=== PATIENT | male | born 1955 | race Caucasian/White ===

== ENCOUNTER → 2021-07-16 | Outpatient (CLI) | payer BC | END | disposition home or self-care (01) | LOC: LABPAT 10:37 | PROVIDERS: ATTEND Urology | DX: Z01.812 Encounter for preprocedural laboratory examination (principal); N40.1 Benign prostatic hyperplasia with lower urinary tract symptoms ==

== ENCOUNTER 2021-07-26 06:00 | Inpatient (IN) | payer BC ==
[2021-07-16 11:29] LABS: Basophils # (A) 0.1 k/uL (0-0.2); Basophils % (A) 1 %; Eosinophils # (A) 0.1 k/uL (0-0.7); Eosinophils % (A) 2 %; HCT 47.3 % (39.0-53.0); HGB 15.7 gm/dL (13.0-17.5); Lymphocytes # (A) 1.1 k/uL (1.0-4.8); Lymphocytes % (A) 16 %; MCH 29.7 pg (25.0-35.0); MCHC 33.2 g/dL (31.0-37.0); MCV 89.5 fL (80.0-100.0); Mean Platelet Volume 8.4; Monocytes # (A) 0.4 k/uL (0-1.0); Monocytes % (A) 6 %; Neutrophils # (A) 4.8 k/uL (1.3-7.7); Neutrophils % (A) 74 %; Platelet Count 159 k/uL (150-450); RBC 5.29 m/uL (4.30-5.90); RDW 12.8 % (11.5-15.5); WBC 6.5 k/uL (3.8-10.6)
[2021-07-16 11:41] LABS: African American GFR (CKD) >90 (>60 ml/min/1.73 sqM); Anion Gap 4 mmol/L; Blood Urea Nitrogen 20 mg/dL (9-20); Calcium 10.1 mg/dL (8.4-10.2); Carbon Dioxide 29 mmol/L (22-30); Chloride 104 mmol/L (98-107); Glucose 100 mg/dL (74-99); Non-African American GFR(CKD) 85 (>60 ml/min/1.73 sqM); Potassium 4.9 mmol/L (3.5-5.1); Sodium 137 mmol/L (137-145)
[2021-07-16 11:48] LABS: Appearance,Urine Clear (Clear); Bilirubin,Urine Negative (Negative); Blood,Urine Negative (Negative); Color,Urine Yellow; Glucose,Urine (UA) Negative (Negative); Ketones,Urine Negative (Negative); Leukocyte Esterase,Urine Negative (Negative); Nitrite,Urine Negative (Negative); Protein,Urine Negative (Negative); Specific Gravity,Urine 1.017 (1.001-1.035); Urobilinogen,Urine <2.0 mg/dL (<2.0)
[2021-07-22 08:52] VITALS: BMI 26.4
--- NOTE | 2021-07-25 21:04 | P.HPIHPCON ---
History of Present Illness H&P Date: 07/25/21 This a 65 yo male with hx of BPH, he is symptomatic despite medical therapy TRUS showed 85 gram prostate. Discussed given the size of his prostate the recommended approach is either a HoLEP or Robotic simple prostatecomy. discussed the risk and benefit of each procedure in detail. He agreed to proceed with a robotic simple prostatectomy. Discussed with him the risk of surgery which includes but not limited to bleeding, infection, injury to nearby organs which includes but not limited to bowel, ureter, rectum, or blood vessels.. Discussed also with him risk from anesthesia which includes but not limited to heart attack, stroke, blood clots. Discussed with him also the risk of persistent symptoms even with simple prostatectomy. Discussed the risk of erectile dysfunction and urinary incontinence. He understood all the risk and agreed to proceed Consent for Procedure: I have explained the operation/procedure to the patient, including the risks, benefits, side effects, alternative therapies (including not receiving the proposed treatment or service), the likelihood of the patient achieving his/her goals, and potential recuperation problems for the procedure/sedation/analgesia, as well as any blood products, if indicated. I also explained to the patient the risks, benefits and side effects of the alternatives, as well as the risks related to not receiving the proposed procedure, care, treatment, or services. Past Medical History Past Medical History: Deep Vein Thrombosis (DVT), GERD/Reflux, Prostate Disorder, Pulmonary Embolus (PE), Skin Disorder Additional Past Medical History / Comment(s): psoriasis, had COVID 03/2021 History of Any Multi-Drug Resistant Organisms: None Reported Past Surgical History: Orthopedic Surgery Additional Past Surgical History / Comment(s): bl knee replacement, rt shoulder surgery after fx, EGD Past Anesthesia/Blood Transfusion Reactions: Previous Problems w/ Anesthesia, Postoperative Nausea & Vomiting (PONV) Additional Past Anesthesia/Blood Transfusion Reaction / Comment(s): diff swallowing after EGD, Smoking Status: Former smoker - Past Family History Father Family Medical History: Cancer Additional Family Medical History / Comment(s): esophageal Mother Family Medical History: Cancer Additional Family Medical History / Comment(s): breast Medications and Allergies Home Medications Medication Instructions Recorded Confirmed Type Alfuzosin HCl [Uroxatral] 10 mg PO DAILY 07/22/21 07/22/21 History Apixaban [Eliquis] 5 mg PO BID 07/22/21 07/22/21 History Multivitamins, Thera [Multivitamin 1 tab PO DAILY 07/22/21 07/22/21 History (formulary)] Omeprazole [PriLOSEC] 20 mg PO W/SUPPER 07/22/21 07/22/21 History Allergies Allergy/AdvReac Type Severity Reaction Status Date / Time acetaminophen [From Percocet] Allergy diff Verified 07/22/21 08:43 swallowing, dry mouth oxycodone [From Percocet] Allergy diff Verified 07/22/21 08:43 swallowing, dry mouth glycocyrrolate Allergy diff Uncoded 07/22/21 08:59 swallowing, dry mouth Surgical - Exam - General no distress, no pain - Eyes PERRL, normal ocular movement - ENT normal nares, normal mucosa - Respiratory normal expansion, normal respiratory effort - Abdomen Abdomen: soft, non tender Results - Labs 07/16/21 11:01 07/16/21 11:01 Assessment and Plan Assessment: -OR for robotic simple prostatecomy
[~2021-07-26 06:00] MED LIST: DEXAMETHASONE SOD PHOSPHATE 4 MG/ML 1 ML VIAL IV ONE; HEPARIN SODIUM,PORCINE/PF 5,000 UNIT/0.5 ML SYRINGE SQ PRN; ONDANSETRON 4 MG/2 ML VIAL IVP ONE
[2021-07-26] MEDS ORDERED: fentaNYL (PF) 50 MCG/ML 2 ML AMP IVP ONE ×2 (07:23→07:42)
[2021-07-26] MEDS ORDERED: MIDAZOLAM 2 MG/2 ML VIAL IVP ONE (07:23)
[2021-07-26] MEDS ORDERED: traMADol 50 MG TAB PO PRN (07:30)
[2021-07-26] MEDS ORDERED: LIDOCAINE 1% (10MG/ML) FOR IV START INTRADERMA ONE ×2 (07:39)
[2021-07-26] MEDS ORDERED: fentaNYL (PF) 50 MCG/ML 2 ML AMP ONE (07:41)
[2021-07-26] MEDS ORDERED: SODIUM CHLORIDE 0.9% (PF) 10 ML VIAL ONE (07:41)
[2021-07-26] MEDS ORDERED: ROPIVACAINE 5 MG/ML 30 ML VIAL ONE (07:41)
[2021-07-26] MEDS ORDERED: SUCCINYLCHOLINE CHLORIDE 100 MG/5 ML SYR IV ONE (07:41)
[2021-07-26] MEDS ORDERED: ePHEDrine 50 MG/ML 1 ML AMP ONE (07:41)
[2021-07-26] MEDS ORDERED: DEXAMETHASONE SOD PHOSPHATE 4 MG/ML 1 ML VIAL ONE (07:41)
[2021-07-26] MEDS ORDERED: ROCURONIUM 10 MG/ML (5 ML VIAL) IV ONE (07:41)
[2021-07-26] MEDS ORDERED: PROPOFOL 10 MG/ML 20 ML VIAL IV ONE (07:41)
[2021-07-26] MEDS ORDERED: SUGAMMADEX SODIUM 500 MG/5 ML SDV IV ONE (07:41)
[2021-07-26] MEDS ORDERED: LIDOCAINE 1% INJ 10MG/ML (20 ML MDV) ONE (07:41)
[2021-07-26] MEDS: LACTATED RINGERS 1,000 ML IV SCH (07:43)
[2021-07-26] MEDS ORDERED: SCOPOLAMINE 1.5MG/72HR PATCH TRANSDERM ONE (07:44)
--- NOTE | 2021-07-26 08:29 | P.ANPRN ---
Procedure Note - Anesthesia - Nerve Block Performed Bilateral Erector Spinae Single Time Out Performed: Yes Date of Procedure: 07/26/21 Procedure Start Time: Procedure Stop Time: Location of Patient: PreOp Indication: Requested by Surgeon Specifically requested for management of pain by DrTereza: Joshua Sweeney Sedation Type: Sedate with meaningful contact maintained Preparation: Sterile Prep Position: Prone Needle Types: Pajunk Needle Gauge: 21 Ultrasound used to visualize needle placement: Yes Ultrasound used to observe medication spread: Yes Injectate: 0.5% Ropivacaine (see comment for volume) (15 ml PF +15 ml 0.9% NS + 4mg Dexamethason) Blood Aspirated: No Pain Paresthesia on Injection Noted: No Resistance on Injection: Normal Image Stored and Saved: Yes Events: Uneventful and Well Tolerated
[2021-07-26] MEDS ORDERED: BUPIVACAINE (PF) 0.25% 30 ML VIAL SQ ONE ×2 (08:32)
--- NOTE | 2021-07-26 10:42 | P.OP ---
Date of Procedure: 07/26/21 Preoperative Diagnosis: BPH with obstruction Postoperative Diagnosis: Same Procedure(s) Performed: Robotic simple prostatectomy Implants: None Anesthesia: JUNA Surgeon: Joshua Sweeney Housing Inspectors #1: Annabelle Rodríguez Estimated Blood Loss (ml): 100 Pathology: other (Prostate adenoma) Condition: stable Disposition: PACU Indications for Procedure: This a 65 yo male with hx of BPH, he is symptomatic despite medical therapy TRUS showed 85 gram prostate. Discussed given the size of his prostate the recommended approach is either a HoLEP or Robotic simple prostatecomy. discussed the risk and benefit of each procedure in detail. He agreed to proceed with a robotic simple prostatectomy. Discussed with him the risk of surgery which includes but not limited to bleeding, infection, injury to nearby organs which includes but not limited to bowel, ureter, rectum, or blood vessels.. Discussed also with him risk from anesthesia which includes but not limited to heart attack, stroke, blood clots. Discussed with him also the risk of persistent symptoms even with simple prostatectomy. Discussed the risk of erectile dysfunction and urinary incontinence. He understood all the risk and agreed to proceed Description of Procedure: After preoperative antibiotics were started, the patient was taken to the operating room. Anesthesia was induced and the patient was placed in a supine position with adequate padding of the pressure points, shoulders, back, legs and arms. He was then prepped and draped in the standard fashion. A critical pause was performed using two patient identifiers. A 16F lopez catheter was placed to gravity drainage. A pneumoperitoneum was obtained using a Veress needle, after pneumoperitoneum was obtained a 8 mm camera port was placed. Under direct vision a 8mm robotic ports was placed lateral to each rectus slightly below the camera port. The left iliac fossa 8mm port was placed. The right clinical medical assistant right iliac fossa 12mm port and right paramedian 5mm portwere placed. After the patient was placed in the trendelenberg position, the robot was then docked to the 8mm robotic ports and then each robotic arm and tower was checked in relation to the patient's legs and hands to avoid inadvertent compression. The peritoneal cavity was inspected. Adhesions were taken down along the left lower quadrant An inverted U-shaped incision began laterally to the left medial umbilical ligament and extended high across the midline to the right umbilical ligament. The limbs of the "U" extended to the level of the vasa on both sides. We next developed the preperitoneal space and the space of Retzius. of Cautery was used to dissected the bladder away from the prostate, the incision was made in close proximity to the prostate, and incision was extended laterally and at this point the plane between the adenoma and the surgical capsule is identified. Both ureteral orifices were identified and neither was injured during the dissection . The adenoma was dissected off of the capsule by combination of blunt dissection and minimum cautery. dissection was initially started along the anterior surface and posterior surface of adenoma, and this was carried laterally. The dissection was carried to the apex, at this point the urethral-prostatic junction was visualized and the prostate was transected at the junction. Prostate adenoma was placed in an endocatch bag . A 9and 6 inch 3-0 V-Lock suture was used to anastomose the urethra and bladder, starting at the 6:00 posterior position. Mucosa was secured in every stitch, to ensure a mucosa to mucosa anastomosis. The stitch was regularly cinched and the anastomosis tightened. . The 20 Fr Lopez catheter was advanced, the bladder filled, and the anastomosis was tested. Anastomsis was watertight at 150 mL. balloon was inflated to 10 mL The robot was undocked. specimen was extracted from the supraumbilical incision. The periumbilical fascia was closed with 1-0-PDS suture in figure of 8 fashion. All ports were closed with a subcuticular 4-0 monocryl and Dermabond. Sponge, instrument, and needle counts were correct at the end of the case x2. The patient tolerated the surgery well and without complication. He awoke without difficulty and was taken to the recovery room in stable condition
[2021-07-26] MEDS: HYDROmorphone 0.5 MG/0.5 ML SYRINGE IVP PRN ×3 (11:13→15:53)
[2021-07-26] MEDS ORDERED: ONDANSETRON 4 MG/2 ML VIAL IVP ONE (11:13)
[2021-07-26] MEDS ORDERED: KETOROLAC 15 MG/ML 1 ML VIAL IVP SCH (12:00)
[2021-07-26] MEDS: D5-0.45% NACL WITH KCL 20MEQ/L 1,000 ML IV SCH ×2 (14:25→22:41)
[2021-07-26] MEDS ORDERED: ARTIFICIAL TEARS-HYPROMELLOSE DROPS 15 ML BTL LEFT EYE PRN (14:27)
[2021-07-26] MEDS: HEPARIN SODIUM,PORCINE/PF 5,000 UNIT/0.5 ML SYRINGE SQ SCH (15:40)
[2021-07-26] MEDS: KETOROLAC 30 MG/ML 1 ML VIAL IVP SCH (17:09)
[2021-07-26] MEDS ORDERED: PANTOPRAZOLE 40 MG TABLET PO SCH (17:30)
[2021-07-26 20:43] VITALS: RESP 16
[2021-07-27] MEDS: KETOROLAC 30 MG/ML 1 ML VIAL IVP SCH ×3 (00:33→12:29)
[2021-07-27] MEDS: HEPARIN SODIUM,PORCINE/PF 5,000 UNIT/0.5 ML SYRINGE SQ SCH ×2 (00:34→08:22)
[2021-07-27 05:06] VITALS: BP 151/54; PULSE 68; TEMP 98.4
[2021-07-27] MEDS: LACTATED RINGERS 1,000 ML IV SCH (07:35)
[2021-07-27] MEDS: D5-0.45% NACL WITH KCL 20MEQ/L 1,000 ML IV SCH (07:37)
--- NOTE | 2021-07-27 12:06 | P.DS ---
Providers Date of admission: 07/26/21 06:00 Attending physician: Joshua Sweeney MD Primary care physician: Cb Haynes MD Hospital Course: This is a 65-year-old male with history of BPH. He underwent a robotic simple prostatectomy on July 26. Please see op note dated July 26 for surgery detail. He was admitted to the hospital postoperatively. He did well in the postoperative period. He was discharged home on postop day #1, time of discharge he was tolerating a diet, ambulating, pain was well-controlled Plan - Discharge Summary Discharge Rx Participant: Yes New Discharge Prescriptions: New Cephalexin [Keflex] 250 mg PO Q12HR #20 capsule Ketorolac [Toradol] 10 mg PO Q6HR PRN #10 tab PRN Reason: Pain No Action Omeprazole [PriLOSEC] 20 mg PO W/SUPPER Apixaban [Eliquis] 5 mg PO BID Alfuzosin HCl [Uroxatral] 10 mg PO DAILY Multivitamins, Thera [Multivitamin (formulary)] 1 tab PO DAILY Discharge Medication List Alfuzosin HCl [Uroxatral] 10 mg PO DAILY 07/22/21 [History] Apixaban [Eliquis] 5 mg PO BID 07/22/21 [History] Multivitamins, Thera [Multivitamin (formulary)] 1 tab PO DAILY 07/22/21 [Histo ry] Omeprazole [PriLOSEC] 20 mg PO W/SUPPER 07/22/21 [History] Cephalexin [Keflex] 250 mg PO Q12HR #20 capsule 07/26/21 [Rx] Ketorolac [Toradol] 10 mg PO Q6HR PRN #10 tab 07/26/21 [Rx] Activity/Diet/Wound Care/Special Instructions: No heavy lifting or straining for 4 weeks You may shower but no baths Increase fluid intake It is normal to see blood in the urine You can resume your Elqiuis in 5 days
== END 2021-07-27 12:55 | disposition home or self-care (01) | DRG 707 ==
LOC: 2ORMAIN 06:00 → 5NMEDONC 13:12
PROVIDERS: ADMIT Urology; ATTEND Urology
PROC: 8E0W4CZ Robotic Assisted Procedure of Trunk Region, Percutaneous Endoscopic Approach (ICD-10-PCS; principal; 2021-07-26 07:30)
PROC: 0VT04ZZ Resection of Prostate, Percutaneous Endoscopic Approach (ICD-10-PCS; principal; 2021-07-26 07:30)
DX: N40.1 Benign prostatic hyperplasia with lower urinary tract symptoms (principal); N13.8 Other obstructive and reflux uropathy; Z20.822 Contact with and (suspected) exposure to COVID-19; K21.9 Gastro-esophageal reflux disease without esophagitis; L40.9 Psoriasis, unspecified; Z79.01 Long term (current) use of anticoagulants; Z79.899 Other long term (current) drug therapy; Z87.891 Personal history of nicotine dependence; Z86.16 Personal history of COVID-19; Z86.718 Personal history of other venous thrombosis and embolism; Z86.711 Personal history of pulmonary embolism; Z96.653 Presence of artificial knee joint, bilateral; Z87.39 Personal history of other diseases of the musculoskeletal system and connective tissue; Z98.890 Other specified postprocedural states; Z88.5 Allergy status to narcotic agent; Z88.8 Allergy status to other drugs, medicaments and biological substances; Z80.0 Family history of malignant neoplasm of digestive organs; Z80.3 Family history of malignant neoplasm of breast
CPT/HCPCS: 76942; 80048; 81003; 85025; 86850; 86900; 86901; 87086; 87635; 88307; 88344

== ENCOUNTER 2022-06-25 06:28 | Day surgery (SDC) | payer MEDICARE, BC ==
[2022-06-25 06:55] VITALS: TEMP 97.2
[2022-06-25] MEDS ORDERED: LACTATED RINGERS 1,000 ML IV ONE (07:02)
[2022-06-25] MEDS ORDERED: PROPOFOL 10 MG/ML 20 ML VIAL IV ONE (07:21)
[2022-06-25] MEDS ORDERED: LIDOCAINE 2% INJ 20 MG/ML (2 ML VIAL) ONE (07:21)
--- NOTE | 2022-06-25 07:49 | P.PCN ---
Date of Procedure: 06/25/22 Procedure(s) Performed: Brief history: Patient is a pleasant 66-year-old white male scheduled for an elective upper endoscopy as well as colonoscopy as a part of evaluation of long-standing history of GERD/Tipton's esophagus and prior history of colon polyps Procedure performed: Esophagogastroduodenoscopy with biopsy Colonoscopy with snare polyp rectum Preoperative diagnosis: GERD/Tipton's esophagus History of colon polyps Anesthesia: MAC Procedure: After informed consent was obtained from the patient was brought into the endoscopy unit and IV sedation was administered by anesthesia under continuous monitoring. Initially upper endoscopy was done. The Olympus GF 160 video endoscope was inserted inserted into the mouth and esophagus intubated without any difficulty and was gradually advanced into the stomach and duodenum and carefully examined. The bulb and second part of the duodenum appeared normal. The scope was then withdrawn into the stomach adequately insufflated with air and upon careful examination the antrum and body, cardia and fundus appeared normal. The scope was then withdrawn into the esophagus. The GE junction was located at 40 cm to the incisors. It appeared irregular and there is 2 small islands of Tipton's appearing mucosa measuring 1-2 mm in sizes proximal to the GE junction which was biopsied. Rest of the esophagus appeared normal. Patient tolerated the procedure well. At this time the patient continued to remain sedation. Initial digital rectal examination was normal. Olympus CF 160 video colonoscope was then inserted into the rectum and gradually advanced to the cecum without any difficulty. Careful examination was performed as the scope was gradually being withdrawn. The prep was excellent. The cecum, ascending colon appeared normal. The transverse colon there was a 7-8 mm polyp that was removed by snare polypectomy. Rest, tra nsverse colon, descending colon, sigmoid colon and rectum appeared normal. Retroflexion was performed in the rectum and no lesions were noted. Patient tolerated the procedure well. Impression: 1.Upper endoscopy revealed short segment Tipton's esophagus 2.Colonoscopy revealed a 7-8 mm transverse colon polyp status post snare polypectomy Recommendations: Findings of this examination were discussed with the patient as well asHis family. He was advised to follow with the biopsy results. If the biopsy confirms the presence of Tipton's esophagus. Repeat upper endoscopy in 3 years. Repeat colonoscopy in 5 years based on the biopsy results
[2022-06-25] MEDS ORDERED: IV FLUID CONTINUATION 1,000 ML IV ONE (07:52)
[2022-06-25 07:54] VITALS: RESP 16
[2022-06-25] MEDS ORDERED: LACTATED RINGERS 1,000 ML IV SCH (08:04)
[2022-06-25] MEDS ORDERED: LIDOCAINE 1% (10MG/ML) FOR IV START INTRADERMA PRN (08:04)
[2022-06-25 08:09] VITALS: BP 150/79; PULSE 54
== END 2022-06-25 08:28 | disposition home or self-care (01) ==
LOC: ORWHC2ENDO 06:28
PROVIDERS: ATTEND Internal Medicine Gastroenterology
DX: Z12.11 Encounter for screening for malignant neoplasm of colon (principal); K21.00 Gastro-esophageal reflux disease with esophagitis, without bleeding; K22.70 Barrett's esophagus without dysplasia; D12.3 Benign neoplasm of transverse colon; M19.90 Unspecified osteoarthritis, unspecified site; N42.9 Disorder of prostate, unspecified; L40.9 Psoriasis, unspecified; Z88.8 Allergy status to other drugs, medicaments and biological substances; Z86.718 Personal history of other venous thrombosis and embolism; Z86.711 Personal history of pulmonary embolism; Z79.899 Other long term (current) drug therapy; Z79.01 Long term (current) use of anticoagulants; Z86.010 Personal history of colon polyps; Z88.6 Allergy status to analgesic agent
CPT/HCPCS: 88305; 45385; 43239; J2704; J2001

== ENCOUNTER → 2023-12-31 | Outpatient (CLI) | payer MEDICARE, BC | END | disposition home or self-care (01) | LOC: LABWHC1 09:42 | PROVIDERS: ATTEND Nurse Practitioner Family | DX: J30.89 Other allergic rhinitis (principal) | CPT/HCPCS: 36415 ==

== ENCOUNTER 2024-04-28 18:50 | Inpatient (IN) | payer MEDICARE, BC ==
[2024-04-28] MEDS ORDERED: NALOXONE 0.4 MG/ML 1 ML VIAL IV PRN (18:59)
[2024-04-28] MEDS ORDERED: HEPARIN SODIUM 1,000 UN/ML (10ML VL) IV PRN (19:00)
[2024-04-28] MEDS: HEPARIN SODIUM 1,000 UN/ML (10ML VL) IV ONE (19:02)
[2024-04-28] MEDS: SODIUM CHLORIDE 0.9% 1,000 ML IV SCH ×2 (19:03→20:55)
--- NOTE | 2024-04-28 19:07 | ED ---
General Adult HPI - General Chief complaint: Chest Pain Stated complaint: stemi Time Seen by Provider: 04/28/24 18:52 Source: patient, EMS Mode of arrival: EMS Limitations: no limitations - History of Present Illness Initial comments: Dictation was produced using [employer] dictation software. please excuse any grammatical, word or spelling errors. Chief Complaint: 68-year-old male presents with STEMI History of Present Illness: Patient 68-year-old male has no significant comorbidities presents to the emergency department with ST segment elevation ME. Patient was having some right substernal chest pressure with associated diaphoresis. He called EMS. Initially thought that it had some to do with the recent shoulder injections that he received by orthopedic surgery. Patient has no history of coronary artery disease. No significant family history of ACS or cardiac issues. Patient states he is currently pain-free received aspirin and nitro by prehospital providers. The ROS documented in this emergency department record has been reviewed and confirmed by me. Those systems with pertinent positive or negative responses have been documented in the HPI. All other systems are other negative and/or noncontributory. - Related Data Home Medications Medication Instructions Recorded Confirmed Apixaban [Eliquis] 5 mg PO BID 07/22/21 06/25/22 Multivitamins, Thera [Multivitamin 1 tab PO DAILY 07/22/21 06/25/22 (formulary)] Omeprazole [PriLOSEC] 20 mg PO DAILY 07/22/21 06/25/22 Unk Digetine Supplement 1 tab PO DAILY 06/18/22 06/25/22 Allergies Allergy/AdvReac Type Severity Reaction Status Date / Time acetaminophen [From Percocet] Allergy diff Verified 04/28/24 18:56 swallowing, dry mouth oxycodone [From Percocet] Allergy diff Verified 04/28/24 18:56 swallowing, dry mouth glycocyrrolate Allergy diff Uncoded 04/28/24 18:56 swallowing, dry mouth Review of Systems ROS Statement: Those systems with pertinent positive or pertinent negative responses have been documented in the HPI. ROS Other: All systems not noted in ROS Statement are negative. Past Medical History Past Medical History: Deep Vein Thrombosis (DVT), GERD/Reflux, Prostate Disorder, Pulmonary Embolus (PE), Skin Disorder Additional Past Medical History / Comment(s): psoriasis ( wrist and elbows both arms), had COVID 03/2021. 08/2019 blood clot in legs and lung . arthritis in hands, History of PE History of Any Multi-Drug Resistant Organisms: None Reported Past Surgical History: Orthopedic Surgery Additional Past Surgical History / Comment(s): bl knee replacement, rt shoulder surgery after fx, EGD 07/26/21 most prostate removed no cancer Past Anesthesia/Blood Transfusion Reactions: Previous Problems w/ Anesthesia, Postoperative Nausea & Vomiting (PONV) Additional Past Anesthesia/Blood Transfusion Reaction / Comment(s): diff swallowing after EGD,ribeiro esophagus. no blood transfusions Past Psychological History: No Psychological Hx Reported Smoking Status: Former smoker Past Alcohol Use History: Occasional Past Drug Use History: None Reported - Past Family History Father Family Medical History: Cancer Additional Family Medical History / Comment(s): esophageal Mother Family Medical History: Cancer Additional Family Medical History / Comment(s): breast General Exam - General Exam Comments Initial Comments: PHYSICAL EXAM: General Impression: Alert and oriented x3, not in acute distress HEENT: Normocephalic atraumatic, extra-ocular movements intact, pupils equal and reactive to light bilaterally, mucous membranes moist. Cardiovascular: Heart regular rate and rhythm Chest: Able to complete full sentences, no retractions, no tachypnea Abdomen: abdomen soft, non-tender, non-distended, no organomegaly Musculoskeletal: Pulses present and equal in all extremities, no peripheral edema Motor: no focal deficits noted Neurological: CN II-XII grossly intact, no focal motor or sensory deficits noted Skin: Intact with no visualized rashes Psych: Normal affect and mood Limitations: no limitations Course Vital Signs 04/28/24 18:52 Temperature 98.1 F Pulse Rate 62 Respiratory 20 Rate Blood Pressure 166/85 O2 Sat by Pulse 98 Oximetry EKG Findings - EKG Comments: EKG Findings:: My EKG interpretation: Ventricular rate 60, sinus rhythm,. 1 6, QRS 105, QTc 402. No AR prolongation, no QTC prolongation, no ST or T-wave changes noted. Overall, this EKG is unremarkable. EKG reviewed showing acute ST segment elevation ME. EKG was received by our department at 1833 Medical Decision Making - Medical Decision Making Was pt. sent in by a medical professional or institution (, PA, HOUSEKEEPING/LAUNDRY SUPERVISOR, urgent care, hospital, or senior living...) When possible be specific @ -No Did you speak to anyone other than the patient for history (EMS, parent, family, police, friend...)? What history was obtained from this source @ -Some history obtained from EMS as described above Did you review nursing and triage notes (agree or disagree)? Why? @ -I reviewed and agree with nursing and triage notes Were old charts reviewed (outside hosp., previous admission, EMS record, old EKG, old radiological studies, urgent care reports/EKG's, senior living records)? Report findings @ -Prehospital EKG showed ST segment elevation ME Differential Diagnosis (chest pain, altered mental status, abdominal pain women, abdominal pain men, vaginal bleeding, musculoskeletal, weakness, fever, dyspnea, syncope, headache, dizziness, GI bleed, back pain, seizure, CVA, palpatations, mental health)? @ -Not applicable EKG interpreted by me (3pts min.). @ -See above X-rays interpreted by me (1pt min.). @ - pending CT interpreted by me (1pt min.). @ -None done U/S interpreted by me (1pt. min.). @ -None done What testing was considered but not performed or refused? (CT, X-rays, U/S, labs)? Why? @ -None What meds were considered but not given or refused? Why? @ -None Was smoking cessation discussed for >3mins.? @ -No Were there social determinants of health that impacted care today? How? (Homelessness, low income, unemployed, alcoholism, drug addiction, transportation, low edu. Level, literacy, decrease access to med. care, prison, rehab)? @ -No Was there de-escalation of care discussed even if they declined (Discuss DNR or withdrawal of care, Hospice)? DNR status @ -No What co-morbidities impacted this encounter? (DM, HTN, Smoking, COPD, CAD, Cancer, CVA, ARF, Chemo, Hep., AIDS, mental health diagnosis, sleep apnea, morbid obesity)? @ -None Was patient admitted / discharged? Hospital course, mention meds given and route, prescriptions, significant lab abnormalities, going to OR and other pertinent info. @ -68-year-old male presents to the emergency department with STEMI seen on prehospital EKG. Code STEMI page prior to patient arrival EKG performed here in our department did not show any ST segment elevation ME. Vital signs stable. Patient pain-free and well-appearing at the bedside. Case discussed in detail with Dr. Turcios of cardiology. Will be transferred to cardiac [facility] for cardiac cath Did you discuss the management of the patient with other professionals (professionals i.e. , PA, HOUSEKEEPING/LAUNDRY SUPERVISOR, lab, RT, psych nurse, social and political studies professor, gta, teacher, senior commercial loan officer, binder caser)? Give summary @ -See above. Case also discussed with hospitalist for admission Was critical care preformed (if so, how long)? @ -Yes, 33 minutes Undiagnosed new problem with uncertain prognosis? @ -No Drug Therapy requiring intensive monitoring for toxicity (Heparin, Nitro, Insulin, Cardizem)? @ -No Were any procedures done? @ -No Diagnosis/symptom? Acute, or Chronic, or Acute on Chronic? Uncomplicated (without systemic symptoms) or Complicated (systemic symptoms)? @ -STEMI Side effects of treatment? @ -No Exacerbation, Progression, or Severe Exacerbation? @ -No Poses a threat to life or bodily function? How? (Chest pain, USA, ME, pneumonia, PE, COPD, DKA, ARF, appy, cholecystitis, CVA, Diverticulitis, Homicidal, Suicidal, threat to staff... and all critical care pts) @ -yes Disposition Clinical Impression: STEMI (ST elevation myocardial infarction) Disposition: ADMITTED IP TO THIS [facility] Condition: Critical Referrals: Ruth Liu MD [Primary Care Provider] - 1-2 days Decision Time: 19:06
[2024-04-28 19:12] LABS: Basophils % (A) 0 %; Eosinophils # (A) 0.1 k/uL (0-0.7); Eosinophils % (A) 1 %; HGB 14.2 gm/dL (13.0-17.5); Lymphocytes # (A) 1.8 k/uL (1.0-4.8); Lymphocytes % (A) 15 %; MCH 29.4 pg (25.0-35.0); MCHC 34.7 g/dL (31.0-37.0); MCV 84.8 fL (80.0-100.0); Mean Platelet Volume 8.1; Monocytes # (A) 0.6 k/uL (0-1.0); Monocytes % (A) 5 %; Neutrophils # (A) 9.2 k/uL (1.3-7.7); Neutrophils % (A) 77 %; Platelet Count 247 k/uL (150-450); RBC 4.84 m/uL (4.30-5.90); RDW 12.7 % (11.5-15.5); WBC 11.9 k/uL (3.8-10.6)
[2024-04-28] MEDS: IV FLUID CONTINUATION 1,000 ML IV ONE (19:17)
[2024-04-28] MEDS: fentaNYL (PF) 50 MCG/ML 2 ML AMP IVP ONE (19:24)
[2024-04-28] MEDS: HEPARIN SODIUM,PORCINE 10,000 UNIT in SODIUM CHLORIDE 0.9% 1,000 ML IRRIGATION ONE (19:25)
[2024-04-28 19:26] LABS: ALT 27 U/L (4-49); African American GFR (CKD) >90 (>60 ml/min/1.73 sqM); Anion Gap 10 mmol/L; Blood Urea Nitrogen 27 mg/dL (9-20); Calcium 10.2 mg/dL (8.4-10.2); Carbon Dioxide 23 mmol/L (22-30); Chloride 101 mmol/L (98-107); Glucose 109 mg/dL (74-99); Magnesium 2.1 mg/dL (1.6-2.3); Non-African American GFR(CKD) >90 (>60 ml/min/1.73 sqM); Sodium 134 mmol/L (137-145); Total Bilirubin 0.7 mg/dL (0.2-1.3)
[2024-04-28] MEDS: LIDOCAINE 1% INJ 10MG/ML (20 ML MDV) SQ ONE (19:26)
[2024-04-28] MEDS: HEPARIN SODIUM,PORCINE (1 ML) 2,500 UNIT in SODIUM CHLORIDE 0.9% 250 ML IRRIGATION ONE (19:26)
[2024-04-28 19:28] LABS: Potassium 4.8 mmol/L (3.5-5.1)
[2024-04-28] MEDS: VERAPAMIL SYRINGE (5 MG/10 ML) INTRAARTER ONE (19:28)
[2024-04-28 19:29] LABS: AST 39 U/L (17-59); Albumin 4.2 g/dL (3.5-5.0); Alkaline Phosphatase 70 U/L (38-126); Total Protein 7.2 g/dL (6.3-8.2)
[2024-04-28] MEDS: HEPARIN SODIUM 1,000 UN/ML (10ML VL) IVP ONE (19:32)
[2024-04-28 19:34] LABS: INR 0.9 (<1.2); Prothrombin Time 10.1 sec (10.0-12.5)
[2024-04-28 19:38] LABS: Partial Thromboplastin Time 21.7 sec (22.0-30.0)
[2024-04-28] MEDS: IOPAMIDOL-370 200ML BTL INJ ONE (19:41)
[2024-04-28] MEDS: HEPARIN SOD,PORK IN 0.45% NACL 25,000 UNIT in 0.45% NACL 1 250ML.BAG IV ONE (19:55)
[2024-04-28] MEDS ORDERED: RX INFO: IV CONTRAST WAS GIVEN 1 EACH MISC MISCELLANE PRN (20:02)
--- NOTE | 2024-04-28 20:11 | P.CRDCN ---
History of Present Illness Consult date: 04/28/24 History of present illness: History of Present Illness: The patient is a 68-year-old male with a prior history of DVT and pulmonary embolism in 2019, maintained on Eliquis, history of hyperlipidemia who presented with symptoms of chest discomfort. He had an episode of chest discomfort to the right side of the chest that is new to him with no other symptoms of dyspnea or dizziness. Initial EKG by EMS was normal subsequent EKG showed ST segment elevation in the lateral precordial leads and upon arrival to the emergency room his ST segment normalized and he was pain-free. He has no prior similar symptoms and he is quite active physically without any associated chest discomfort, dizziness or palpitations. He has no prior history of myocardial infarction, heart failure or arrhythmia. He has no history of diabetes or hypertension, he is a non-smoker. Medications: Eliquis and Protonix Review of Systems: Respiratory: No history of asthma, bronchitis or recent cough. GI: He has a history of Ribeiro's esophagitis but no recent bleeding : No hematuria or dysuria. Nervous System: No stroke or seizure. Physical Examination: 68-year-old male, alert oriented, pain-free evaluated in the cardiac catheterization laboratory,Blood pressure 150/70, Heart rate 70 Head: Normocephalic. Eyes: Sclerae nonicteric. Neck: Good carotid upstroke, no bruit, no jugular venous distention. Lungs: Clear to auscultation. Heart: Regular rate and rhythm, S1-S2, no S3, no rub. Systolic ejection murmur. Abdomen: Soft nontender, positive bowel sounds no organomegaly. Extremities: No edema, intact distal pulses. Labs: White blood cell 11.9, hemoglobin 14.2, potassium 4.8, BUN 27, creatinine 0.8, troponin 0.118. EKG: EKG done in the emergency room shows sinus mechanism with no acute ST segment changes. Second EKG from the EMS showed ST segment elevation in the lateral precordial leads Impression: 1. Transient ST segment elevation consistent with acute STEMI probably with recannulization of the vessel 2. History of DVT and pulmonary embolism maintained on Eliquis since 2019 3. History of Ribeiro's esophagitis with no recent bleeding 4. History of hyperlipidemia Plan: 1. Proceed with emergent cardiac catheterization, the risks and the complications were discussed with the patient 2. Obtain an echocardiogram with Doppler 3. Initiate statin 4. Depending on the results of the testing further recommendations will be made 5. Thank you for this consult we will follow with you Past Medical History Past Medical History: Deep Vein Thrombosis (DVT), GERD/Reflux, Prostate Disorder, Pulmonary Embolus (PE), Skin Disorder Additional Past Medical History / Comment(s): psoriasis ( wrist and elbows both arms), had COVID 03/2021. 08/2019 blood clot in legs and lung . arthritis in hands, History of PE History of Any Multi-Drug Resistant Organisms: None Reported Past Surgical History: Orthopedic Surgery Additional Past Surgical History / Comment(s): bl knee replacement, rt shoulder surgery after fx, EGD 07/26/21 most prostate removed no cancer Past Anesthesia/Blood Transfusion Reactions: Previous Problems w/ Anesthesia, Postoperative Nausea & Vomiting (PONV) Additional Past Anesthesia/Blood Transfusion Reaction / Comment(s): diff swallowing after EGD,ribeiro esophagus. no blood transfusions Past Psychological History: No Psychological Hx Reported Smoking Status: Former smoker Past Alcohol Use History: Occasional Past Drug Use History: None Reported - Past Family History Father Family Medical History: Cancer Additional Family Medical History / Comment(s): esophageal Mother Family Medical History: Cancer Additional Family Medical History / Comment(s): breast Medications and Allergies Home Medications Medication Instructions Recorded Confirmed Type Multivitamins, Thera [Multivitamin 1 tab PO DAILY 07/22/21 04/28/24 History (formulary)] Apixaban [Eliquis] 2.5 mg PO BID 04/28/24 04/28/24 History Pantoprazole [Protonix] 40 mg PO DAILY 04/28/24 04/28/24 History methylPREDNISolone Dose Pack See Taper PO DIRECTED 04/28/24 04/28/24 History [Medrol Dose Pack] Allergies Allergy/AdvReac Type Severity Reaction Status Date / Time glycopyrrolate Allergy diff Verified 04/28/24 19:10 swallowing, dry mouth oxycodone [From Percocet] Allergy diff Verified 04/28/24 19:10 swallowing, dry mouth Physical Exam Vitals: Vital Signs Temp Pulse Resp BP Pulse Ox 04/28/24 18:52 98.1 F 62 20 166/85 98 Intake and Output 04/28/24 04/28/24 04/28/24 06:59 14:59 22:59 Intake Total 300 Balance 300 Intake: IV 300 Other: Weight 97.522 kg Results 04/28/24 18:59 04/28/24 18:59 Cardiac Enzymes 04/28/24 04/28/24 Range/Units 18:59 18:59 AST 39 (17-59) U/L Troponin I 0.118 H* (0.000-0.034) ng/mL Coagulation 04/28/24 Range/Units 18:59 PT 10.1 (10.0-12.5) sec APTT 21.7 L (22.0-30.0) sec CBC 04/28/24 Range/Units 18:59 WBC 11.9 H (3.8-10.6) k/uL RBC 4.84 (4.30-5.90) m/uL Hgb 14.2 (13.0-17.5) gm/dL Hct 41.0 (39.0-53.0) % Plt Count 247 (150-450) k/uL Comprehensive Metabolic Panel 04/28/24 Range/Units 18:59 Sodium 134 L (137-145) mmol/L Potassium 4.8 (3.5-5.1) mmol/L Chloride 101 (98-107) mmol/L Carbon Dioxide 23 (22-30) mmol/L BUN 27 H (9-20) mg/dL Creatinine 0.80 (0.66-1.25) mg/dL Glucose 109 H (74-99) mg/dL Calcium 10.2 (8.4-10.2) mg/dL AST 39 (17-59) U/L ALT 27 (4-49) U/L Alkaline Phosphatase 70 (38-126) U/L Total Protein 7.2 (6.3-8.2) g/dL Albumin 4.2 (3.5-5.0) g/dL Current Medications Generic Name Dose Route Start Last Admin Trade Name Freq PRN Reason Stop Dose Admin Aspirin 81 mg 04/29/24 09:00 Aspirin 81 Mg PO DAILY [facility] Atorvastatin Calcium 80 mg 04/29/24 09:00 Atorvastatin 80 Mg Tab PO DAILY LUIGI Heparin Sodium (Porcine) 0 unit 04/28/24 20:03 Heparin Sodium 1,000 Un/Ml (10ml Vl) IV PER PROTOCOL PRN Low PTT Protocol Sodium Chloride 1,000 mls @ 20 mls/hr 04/28/24 19:00 04/28/24 19:03 Saline 0.9% IV 20 mls/hr .Q24H LUIGI Administration Sodium Chloride 1,000 mls @ 75 mls/hr 04/28/24 20:15 Saline 0.9% IV 04/28/24 23:14 .[id number] LUIGI Heparin Sodium/Sodium Chloride 250 mls @ 11.703 mls/hr 04/28/24 22:15 25,000 unit/ Sodium Chloride IV .[id number] [facility] Protocol 12 UNITS/KG/HR Metoprolol Tartrate 25 mg 04/28/24 21:00 Metoprolol Tartrate 25 Mg Tab PO BID [facility] Miscellaneous Information 1 each 04/28/24 20:02 Rx Info: Iv Contrast Was Given 1 Each [facility] [place] 04/30/24 20:02 DAILY PRN Per Protocol Naloxone HCl 0.2 mg 04/28/24 18:59 Naloxone 0.4 Mg/Ml 1 Ml Vial IV Q2M PRN Opioid Reversal Nitroglycerin 1 inch 04/29/24 00:00 Nitroglycerin Oint 1 Inch/Gm Packet TOPICAL Q8HR [facility] Intake and Output 04/28/24 04/28/24 04/28/24 06:59 14:59 22:59 Intake Total 300 Balance 300 Intake: IV 300 Other: Weight 97.522 kg Patient Weight 04/29/24 06:59 Weight 97.522 kg 04/28/24 18:59 04/28/24 18:59
[2024-04-28 20:12] LABS: Glucose,Whole Blood 109 mg/dL (70-110)
[2024-04-28] MEDS: HEPARIN SOD,PORK IN 0.45% NACL 25,000 UNIT in 0.45% NACL 1 250ML.BAG IV SCH (20:15)
--- NOTE | 2024-04-28 20:16 | P.CARDCATH ---
Date of Procedure: 04/28/24 Description of Procedure: Cardiac Catheterization: The patient is a 68-year-old male who presented with transient ST segment elevation in the lateral precordial leads and symptoms of chest discomfort. Upon his arrival to the cardiac catheterization laboratory he was pain-free with normalization of his EKG. Recommendations were made regarding cardiac catheterization, the risks and the complications were discussed with the patient who is in full understanding and agreement. Procedure Description: Patient was brought to propagator laborer in fasting semi-sedated state after receiving Fentanyl and Benadryl achieiving moderate conscious sedated state. Using Xylocaine Anesthesia and modified Seldinger technique, a 6-Romanian sheath was introduced in the right radial artery . Subsequently, selective coronary angiography was performed using a 5-Romanian 3.5 bend Tao catheter. Multiple views of the coronary artery including hemiaxial views were obtained. The 5 Romanian pigtail catheter was used to cross the aortic valve and LVEDP was calculated. Following that, catheter and sheath were removed. Hemostasis was obtained with deployment of vascular band . There was no immediate complication. Patient was returned to room in stable condition. Of note, the patient received a total of 3000 units of intravenous heparin as well as intra-arterial verapamil. Findings: Fluoroscopy: Severe calcification of the LAD, left main and left circumflex was noted Left main: This is a short size vessel bifurcating into left circumflex and left anterior sending artery, the left main has mild plaque of 10 to 20% with no high-grade stenosis LAD: This is a large size vessel, reaching to the apex, giving rise to 2 diagon al branch of moderate caliber. The LAD at the ostium has an 80% stenosis and in the mid segment has a 99% stenosis. At the apex there is another plaque of 80 to 90%. Left circumflex: This is a nondominant vessel, giving rise to 2 obtuse marginal branch. The proximal segment of the left circumflex from the ostium until the branching obtuse marginal branch has diffuse intimal disease of 70%. The takeoff of both obtuse marginal branch have significant stenosis up to 95% RCA: This is a dominant vessel, bifurcating distally to PDA and PLV the mid right coronary artery has a tubular lesion with a area of stenosis up to 70%, the rest of the vessel has no high-grade stenosis Left Ventriculogram: Not performed Hemodynamics: There was no gradient across aortic valve, LVEDP was 20-24 mmHg Conclusion: 1. Calcified coronary arteries 2. Severe stenosis in the proximal and mid LAD 3. Severe stenosis in the proximal left circumflex and obtuse marginal branch 1 and 2 4. Moderate to significant disease in the mid RCA Recommendations: In view of his anatomy I have recommended to proceed with evaluation for coronary artery bypass grafting, the patient is pain-free and has a KENNEY-3 flow, in the meantime he will be initiated on IV heparin and optimal medical therapy. His case was discussed with Dr. Sarah. His Eliquis will be held the findings and the recommendations were discussed with the patient and the family and they were in full understanding and agreement. Duration of sedation is 20 minutes.
[2024-04-28 21:03] LABS: Basophils % (A) 0 %; Eosinophils # (A) 0.1 k/uL (0-0.7); Eosinophils % (A) 0 %; HCT 40.4 % (39.0-53.0); HGB 13.4 gm/dL (13.0-17.5); Lymphocytes # (A) 1.5 k/uL (1.0-4.8); Lymphocytes % (A) 13 %; MCH 28.8 pg (25.0-35.0); MCHC 33.2 g/dL (31.0-37.0); MCV 86.8 fL (80.0-100.0); Mean Platelet Volume 7.7; Monocytes # (A) 0.7 k/uL (0-1.0); Monocytes % (A) 6 %; Neutrophils # (A) 8.6 k/uL (1.3-7.7); Neutrophils % (A) 78 %; Platelet Count 239 k/uL (150-450); RBC 4.66 m/uL (4.30-5.90); RDW 12.3 % (11.5-15.5)
[2024-04-28 21:08] LABS: Partial Thromboplastin Time 57.1 sec (22.0-30.0); Prothrombin Time 11.2 sec (10.0-12.5)
[2024-04-28] MEDS: METOPROLOL TARTRATE 25 MG TAB PO SCH (21:26)
--- NOTE | 2024-04-28 21:41 | US ---
EXAMINATION TYPE: US carotid duplex BILAT DATE OF EXAM: 04/28/2024 COMPARISON: NONE CLINICAL INDICATION: Male, 68 years old with history of preop cardiac surgery; Open heart TECHNIQUE: Grayscale, color Doppler and spectral Doppler evaluation of the bilateral carotid systems and vertebral arteries.Indirect Doppler criteria was utilized. FINDINGS: EXAM MEASUREMENTS: RIGHT: Peak Systolic Velocity (PSV) cm/sec ----- Right CCA: 86.6 ----- Right ICA: 77.3 ----- Right ECA: 131.6 ICA/CCA ratio: 1.1 RIGHT: End Diastole cm/sec ----- Right CCA: 18.3 ----- Right ICA: 16.2 ----- Right ECA: 0.0 LEFT: Peak Systolic Velocity (PSV) cm/sec ----- Left CCA: 78.7 ----- Left ICA: 80.9 ----- Left ECA: 108.9 ICA/CCA ratio: 1.0 LEFT: End Diastole cm/sec ----- Left CCA: 18.2 ----- Left ICA: 30.3 ----- Left ECA: 4.0 VERTEBRALS (direction of flow): Right Vertebral: Antegrade Left Vertebral: Antegrade Rhythm: Normal MANAGER [employer]PORATE STRATEGY NOTES: Slightly elevated velocity seen right ECA. Small amount of plaque seen in bilatera l bulbs. IMPRESSION: 1. Mild plaque in the carotid bulbs but based on grayscale and color imaging there is minimal stenosi s. 2. No hemodynamically significant stenosis based on peak systolic velocities and ratios. Criteria for Assigning % of Stenosis / Diameter reduction (Estimation based on the indirect measurements of the internal carotid artery velocities (ICA PSV). 1. Normal (no stenosis)=ICA PSV < 125 cm/s: ratio < 2.0: ICA EDV<40 cm/s. 2. Less than 50% stenosis=ICA PSV < 125 cm/s: ratio < 2.0: ICA EDV<40 cm/s. 3. 50 to 69% stenosis=ICA PSV of 125 to 230 cm/s: ration 2.0 ? 4.0: ICA EDV 40-100 cm/s. 4. Greater than 70% stenosis to near occlusion= ICA PSV > 230 cm/s: ratio > 4.0: ICA EDV > 100 cm/s. 5. Near occlusion= ICA PSV velocities may be low or undetectable: variable ratio and ICA EDV. 6. Total occlusion=unable to detect flow. [facility], Workstation: DAIN 04/28/2024 9:38 PM
--- NOTE | 2024-04-28 21:41 | US ---
EXAMINATION TYPE: Pre-Operative Non-Invasive Evaluation of the hand for Potential Radial Artery Stacey teixeira, Measurements only DATE OF EXAM: 04/28/2024 9:29 PM CLINICAL INDICATION: Male, 68 years old with history of measurements only; Open heart SIDE PERFORMED: Left TECHNIQUE: Radial artery is measured utilizing real time linear array sonography. Duplex Findings: Radial Artery: Color flow seen Measurements in mm, transverse view: Left Radial: Proximal: 3 x 4 mm Mid: 3 x 4 mm Distal: 3 x 4 mm IMPRESSION: 1. Bilateral Radial artery measurements listed above. 2. Performing surgeon to determine viability as conduit. [facility], , 04/28/2024 9:39 PM
--- NOTE | 2024-04-28 21:42 | US ---
EXAMINATION TYPE: US vein mapping BILAT DATE OF EXAM: 04/28/2024 9:28 PM COMPARISON: NONE CLINICAL INDICATION: Male, 68 years old with history of preop cardiac surgery; open heart SIDE PERFORMED: Bilateral TECHNIQUE: Lower extremity saphenous vein is examined and measured utilizing real time linear array sonography. DUPLEX FINDINGS: Greater Saphenous: Color flow seen Measurements in mm: Right Greater Saphenous: Groin: 5 x 6 mm High Thigh: 4 x 5 mm Mid Thigh: 4 x 5 mm Above Knee: 5 x 6 mm Knee: 5 x 6 mm Below Knee: 5 x 6 mm Mid Calf: 3 x 3 mm At Ankle: 4 x 5 mm Left Greater Saphenous: Groin: 5 x 6 mm High Thigh: 5 x 6 mm Mid Thigh: 6 x 6 mm Above Knee: 4 x 6 mm Knee: 4 x 6 mm Below Knee: 5 x 5 mm Mid Calf: 4 x 6 mm At Ankle: 3 x 4 mm IMPRESSION: 1. Bilateral GSV measurements listed above. 2. Performing surgeon to determine viability as conduit. [facility], Workstation: DAIN 04/28/2024 9:40 PM
[2024-04-28 22:19] LABS: African American GFR (CKD) >90 (>60 ml/min/1.73 sqM); Anion Gap 5 mmol/L; Blood Urea Nitrogen 24 mg/dL (9-20); Calcium 9.4 mg/dL (8.4-10.2); Carbon Dioxide 25 mmol/L (22-30); Chloride 106 mmol/L (98-107); Glucose 108 mg/dL (74-99); Non-African American GFR(CKD) >90 (>60 ml/min/1.73 sqM); Sodium 136 mmol/L (137-145)
[2024-04-28] MEDS: NITROGLYCERIN OINT 1 INCH/GM PACKET TOPICAL SCH (23:53)
[2024-04-29 02:42] LABS: Chol/HDL Ratio 3.53 Ratio; VLDL Calculation 9.52 mg/dL (5.00-40.00)
[2024-04-29 02:51] LABS: Hepatitis A Antibody IgM Nonreactive (Nonreactive); Hepatitis B Core IgM Nonreactive (Nonreactive); Hepatitis B Surface Antigen Nonreactive (Nonreactive); Hepatitis C IgG Antibody Nonreactive (Nonreactive)
--- NOTE | 2024-04-29 03:36 | US ---
EXAM: US Duplex Left Lower Extremity Arteries CLINICAL HISTORY: ITS.REASON US Reason: Ankle Brachial Index (SOCORRO) TECHNIQUE: Real-time duplex ultrasound scan performed COMPARISON: No relevant prior studies available. FINDINGS: Right brachial artery: 150 cm/s. Right PARKING LINE PAINTER: Peak systolic flow velocity: 145 cm/s. Right DPA: Peak systolic flow velocity: 142 cm/s. Right SOCORRO: 0.97. Left brachial artery: 150 cm/s. Left PARKING LINE PAINTER: Peak systolic flow velocity: 158 cm/s. Left DPA: Peak systolic flow velocity: 132 cm/s. Left SOCORRO: 1.05.. IMPRESSION: Normal bilateral ABIs..
--- NOTE | 2024-04-29 05:26 | P.PN ---
Subjective History of Present Illness: The patient is a 68-year-old male with a prior history of DVT and pulmonary embolism in 2019, maintained on Eliquis, history of hyperlipidemia who presented with symptoms of chest discomfort. He had an episode of chest discomfort to the right side of the chest that is new to him with no other symptoms of dyspnea or dizziness. Initial EKG by EMS was normal subsequent EKG showed ST segment elevation in the lateral precordial leads and upon arrival to the emergency room his ST segment normalized and he was pain-free. He has no prior similar symptoms and he is quite active physically without any associated chest d iscomfort, dizziness or palpitations. He has no prior history of myocardial infarction, heart failure or arrhythmia. He has no history of diabetes or hypertension, he is a non-smoker. Medications: Eliquis and Protonix 04/29 Patient seen and examined. Patient had approximately 30 minutes of chest pain however improved with aspirin, nitro and by the time he was taken to Time Clerk was not having any further pain. Catheterization showed multivessel CAD with recommendations for bypass. Preoperative workup has begun. He denies any further chest pain. Mildly bradycardic on metoprolol. Remains on heparin drip. Blood work from this morning pending. Physical Examination: 68-year-old male, alert oriented, pain-free evaluated in the cardiac catheterization laboratory,Blood pressure 150/70, Heart rate 70 Head: Normocephalic. Eyes: Sclerae nonicteric. Neck: Good carotid upstroke, no bruit, no jugular venous distention. Lungs: Clear to auscultation. Heart: Regular rate and rhythm, S1-S2, no S3, no rub. Systolic ejection murmur. Abdomen: Soft nontender, positive bowel sounds no organomegaly. Extremities: No edema, intact distal pulses. EKG: EKG done in the emergency room shows sinus mechanism with no acute ST segment changes. Second EKG from the EMS showed ST segment elevation in the lateral precordial leads Impression: 1. Transient ST segment elevation consistent with acute STEMI probably with recannulization of the vessel 2. History of DVT and pulmonary embolism maintained on Eliquis since 2019 3. History of Tipton's esophagitis with no recent bleeding 4. History of hyperlipidemia 5. multivessel CAD 6. Asymptomatic sinus bradycardia Plan: check 2-D echo. Continue heparin drip and metoprolol and aspirin. Evaluation for bypass. Objective - Vital Signs Vital signs: Vital Signs Temp 97.4 F L 04/29/24 00:00 Pulse 49 L 04/29/24 04:00 Resp 14 04/29/24 04:00 BP 126/76 04/29/24 04:00 Pulse Ox 95 04/29/24 04:00 FiO2 Intake & Output 04/28/24 04/28/24 04/29/24 06:59 18:59 06:59 Intake Total 900 Output Total 1300 Balance -400 Weight 97.522 kg 95.2 kg Intake: IV 900 Sodium Chloride 0.9% 1, 600 000 ml @ 75 mls/hr IV . [id number] COUNTS INCLUDE 234 BEDS AT THE [facility] Rx#:[id number] Output: Urine 1300 - Labs CBC & Chem 7: 04/28/24 20:22 04/28/24 20:22 Labs: Abnormal Lab Results - Last 24 Hours (Table) 04/28/24 04/28/24 04/28/24 Range/Units 18:59 18:59 18:59 WBC 11.9 H (3.8-10.6) k/uL Neutrophils # 9.2 H (1.3-7.7) k/uL APTT 21.7 L (22.0-30.0) sec Sodium 134 L (137-145) mmol/L BUN 27 H (9-20) mg/dL Glucose 109 H (74-99) mg/dL Hemoglobin A1c (<=6.0) % Troponin I (0.000-0.034) ng/mL Cholesterol (0.00-200.00) mg/dL LDL Cholesterol, Calc (0.0-131.0) mg/dL 04/28/24 04/28/24 04/28/24 Range/Units 18:59 20:22 20:22 WBC 11.0 H (3.8-10.6) k/uL Neutrophils # 8.6 H (1.3-7.7) k/uL APTT (22.0-30.0) sec Sodium 136 L (137-145) mmol/L BUN 24 H (9-20) mg/dL Glucose 108 H (74-99) mg/dL Hemoglobin A1c (<=6.0) % Troponin I 0.118 H* (0.000-0.034) ng/mL Cholesterol 203.00 H (0.00-200.00) mg/dL LDL Cholesterol, Calc 136.0 H (0.0-131.0) mg/dL 04/28/24 04/28/24 Range/Units 20:22 20:28 WBC (3.8-10.6) k/uL Neutrophils # (1.3-7.7) k/uL APTT 57.1 H (22.0-30.0) sec Sodium (137-145) mmol/L BUN (9-20) mg/dL Glucose (74-99) mg/dL Hemoglobin A1c 6.4 H (<=6.0) % Troponin I (0.000-0.034) ng/mL Cholesterol (0.00-200.00) mg/dL LDL Cholesterol, Calc (0.0-131.0) mg/dL
[2024-04-29 06:06] LABS: African American GFR (CKD) >90 (>60 ml/min/1.73 sqM); Anion Gap 4 mmol/L; Blood Urea Nitrogen 21 mg/dL (9-20); Calcium 9.5 mg/dL (8.4-10.2); Carbon Dioxide 25 mmol/L (22-30); Chloride 107 mmol/L (98-107); Glucose 93 mg/dL (74-99); Magnesium 2.2 mg/dL (1.6-2.3); Non-African American GFR(CKD) >90 (>60 ml/min/1.73 sqM); Potassium 4.2 mmol/L (3.5-5.1); Sodium 136 mmol/L (137-145)
[2024-04-29 06:10] LABS: Basophils % (A) 0 %; Eosinophils # (A) 0.1 k/uL (0-0.7); Eosinophils % (A) 1 %; HCT 40.3 % (39.0-53.0); HGB 13.1 gm/dL (13.0-17.5); Lymphocytes # (A) 1.8 k/uL (1.0-4.8); Lymphocytes % (A) 22 %; MCH 28.2 pg (25.0-35.0); MCHC 32.5 g/dL (31.0-37.0); MCV 86.9 fL (80.0-100.0); Mean Platelet Volume 7.8; Monocytes # (A) 0.5 k/uL (0-1.0); Monocytes % (A) 7 %; Neutrophils # (A) 5.5 k/uL (1.3-7.7); Neutrophils % (A) 69 %; Platelet Count 236 k/uL (150-450); RBC 4.64 m/uL (4.30-5.90); RDW 12.4 % (11.5-15.5); WBC 7.9 k/uL (3.8-10.6)
[2024-04-29 06:17] LABS: Prothrombin Time 10.5 sec (10.0-12.5)
[2024-04-29] MEDS: ASPIRIN 81 MG PO SCH (08:05)
[2024-04-29] MEDS: ATORVASTATIN 80 MG TAB PO SCH (08:06)
--- NOTE | 2024-04-29 08:07 | P.GSCN ---
History of Present Illness Consult date: 04/29/24 Reason for Consult: Triple-vessel coronary artery disease, STEMI this admission Requesting physician: Wagner Turcios History of present illness: This is a 68-year-old gentleman who follows outpatient with Dr. Bolivar Vizcaino for primary care. He has a previous medical history of hyperlipidemia, Ribeiro's esophagitis, left lower extremity DVT and multiple PEs in August 2019 maintained on Eliquis outpatient, COVID in 2020, arthritis in both shoulders status post recent steroid injection and history of right shoulder surgery, and lifelong non-smoker. Apparently yesterday he was seated reading a book and experienced right sided chest pressure without shortness of breath/nausea/diaphoresis/any other symptomatology. He states he has never had pain like this before. His called 911, he was instructed to take 4 baby aspirin. Upon arrival of EMS he was given sublingual nitro which he states relieved most of his pain. He was transported to [facility] emergency room for evaluation and treatment. Initial EKG by EMS was normal, subsequent EKG demonstrated ST elevation in the precordial leads. EKGs completed in our emergency room demonstrated resolution of ST elevation. Lab work was unremarkab le except WBC 11.9, BUN 27, and troponin 0.118. Patient was ruled in for STEMI and was taken to the [facility] by Dr. Turcios. Heart catheterization revealed ostial LAD stenosis 80%, mid LAD stenosis 99%, distal LAD stenosis 80 to 90%, proximal circumflex stenosis 70% with takeoff of both obtuse marginal branches with 95% stenosis, and mid right coronary artery stenosis 70%. Due to this finding consultation was placed to cardiothoracic surgery for revascularization recommendations. Review of Systems Review of systems was completed and was negative except as noted - Cardiovascular Reports as per HPI, Reports chest pain Past Medical History Past Medical History: Coronary Artery Disease (CAD), Chest Pain / Angina, Deep Vein Thrombosis (DVT), GERD/Reflux, Hyperlipidemia, Myocardial Infarction (TN), Prostate Disorder, Pulmonary Embolus (PE), Skin Disorder Additional Past Medical History / Comment(s): psoriasis ( wrist and elbows both arms), had COVID 03/2021. 08/2019 blood clot in legs and lung . arthritis in hands, History of PE; Ribeiro's esophagitis History of Any Multi-Drug Resistant Organisms: None Reported Past Surgical History: Orthopedic Surgery Additional Past Surgical History / Comment(s): bl knee replacement, rt shoulder surgery after fx, EGD 07/26/21 most prostate removed no cancer Past Anesthesia/Blood Transfusion Reactions: Previous Problems w/ Anesthesia, Postoperative Nausea & Vomiting (PONV) Additional Past Anesthesia/Blood Transfusion Reaction / Comm: diff swallowing after EGD,ribeiro esophagus. no blood transfusions Past Psychological History: No Psychological Hx Reported Smoking Status: Never smoker Past Alcohol Use History: Rare Additional Past Alcohol Use History / Comment(s): 1 drink occasionally on the weekends Past Drug Use History: None Reported Additional History: Denies any history of smoking - Past Family History Father Family Medical History: Cancer, Coronary Artery Disease (CAD) Additional Family Medical History / Comment(s): esophageal Mother Family Medical History: Cancer Additional Family Medical History / Comment(s): breast Medications and Allergies Home Medications Medication Instructions Recorded Confirmed Type Multivitamins, Thera [Multivitamin 1 tab PO DAILY 07/22/21 04/28/24 History (formulary)] Apixaban [Eliquis] 2.5 mg PO BID 04/28/24 04/28/24 History Pantoprazole [Protonix] 40 mg PO DAILY 04/28/24 04/28/24 History methylPREDNISolone Dose Pack See Taper PO DIRECTED 04/28/24 04/28/24 History [Medrol Dose Pack] Allergies Allergy/AdvReac Type Severity Reaction Status Date / Time glycopyrrolate Allergy diff Verified 04/28/24 19:10 swallowing, dry mouth oxycodone [From Percocet] Allergy diff Verified 04/28/24 19:10 swallowing, dry mouth Surgical - Exam Vital Signs Temp Pulse Resp BP Pulse Ox 98.1 F 62 20 166/85 98 04/28/24 18:52 04/28/24 18:52 04/28/24 18:52 04/28/24 18:52 04/28/24 18:52 CONSTITUTIONAL: Awake and alert, appears comfortable, cooperative, well- developed, well-nourished, no pain, no acute distress EYES: Pupils equal, round, reactive to light, normal ocular movement ENT: Moist mucous membranes without oral lesions present NECK: No masses, no bruits, trachea midline RESPIRATORY: Lungs sounds clear to auscultation bilaterally. Respirations even, nonlabored. Currently on room air with oxygen saturation 96%. Strong cough. No chest wall deformities. No clubbing or cyanosis present CARDIOVASCULAR: S1, S2 present. Regular rate and rhythm, sinus bradycardia on telemetry. Palpable peripheral pulses bilaterally. No edema present. No calf pain or tenderness noted. No significant lower extremity varicosities noted. Left radial Lanre's test greater than 8 seconds. GASTROINTESTINAL: Abdomen soft, nontender, nondistended without masses or organomegaly noted. There is no rebound or guarding present. Active bowel sounds present 4 quadrants. GENITOURINARY: Deferred INTEGUMENTARY: Skin is warm and dry with evidence of good perfusion. NEUROLOGIC: Cranial nerves II through XII intact, normal coordination, no obvious motor or sensory deficits, speech is normal MUSKULOSKELETAL: Able to move all extremities, strength equal bilaterally, norm al posture PSYCHIATRIC: Alert and oriented to person place and time, appropriate affect, intact judgment and insight CLINICAL FRAILTY SCORE 1 Results - Labs 04/29/24 05:28 04/29/24 05:28 Abnormal Lab Results - Last 24 Hours (Table) 04/28/24 04/28/24 04/28/24 Range/Units 18:59 18:59 18:59 WBC 11.9 H (3.8-10.6) k/uL Neutrophils # 9.2 H (1.3-7.7) k/uL APTT 21.7 L (22.0-30.0) sec Sodium 134 L (137-145) mmol/L BUN 27 H (9-20) mg/dL Glucose 109 H (74-99) mg/dL Hemoglobin A1c (<=6.0) % Troponin I (0.000-0.034) ng/mL Cholesterol (0.00-200.00) mg/dL LDL Cholesterol, Calc (0.0-131.0) mg/dL 04/28/24 04/28/24 04/28/24 Range/Units 18:59 20:22 20:22 WBC 11.0 H (3.8-10.6) k/uL Neutrophils # 8.6 H (1.3-7.7) k/uL APTT (22.0-30.0) sec Sodium 136 L (137-145) mmol/L BUN 24 H (9-20) mg/dL Glucose 108 H (74-99) mg/dL Hemoglobin A1c (<=6.0) % Troponin I 0.118 H* (0.000-0.034) ng/mL Cholesterol 203.00 H (0.00-200.00) mg/dL LDL Cholesterol, Calc 136.0 H (0.0-131.0) mg/dL 04/28/24 04/28/24 04/29/24 Range/Units 20:22 20:28 05:28 WBC (3.8-10.6) k/uL Neutrophils # (1.3-7.7) k/uL APTT 57.1 H (22.0-30.0) sec Sodium 136 L (137-145) mmol/L BUN 21 H (9-20) mg/dL Glucose (74-99) mg/dL Hemoglobin A1c 6.4 H (<=6.0) % Troponin I (0.000-0.034) ng/mL Cholesterol (0.00-200.00) mg/dL LDL Cholesterol, Calc (0.0-131.0) mg/dL 04/29/24 Range/Units 05:28 WBC (3.8-10.6) k/uL Neutrophils # (1.3-7.7) k/uL APTT (22.0-30.0) sec Sodium (137-145) mmol/L BUN (9-20) mg/dL Glucose (74-99) mg/dL Hemoglobin A1c (<=6.0) % Troponin I 0.863 H* (0.000-0.034) ng/mL Cholesterol (0.00-200.00) mg/dL LDL Cholesterol, Calc (0.0-131.0) mg/dL Diabetes panel 04/28/24 04/28/24 04/28/24 Range/Units 18:59 20:22 20:28 Sodium 134 L 136 L (137-145) mmol/L Potassium 4.8 4.0 (3.5-5.1) mmol/L Chloride 101 106 (98-107) mmol/L Carbon Dioxide 23 25 (22-30) mmol/L BUN 27 H 24 H (9-20) mg/dL Creatinine 0.80 0.73 (0.66-1.25) mg/dL Glucose 109 H 108 H (74-99) mg/dL Hemoglobin A1c 6.4 H (<=6.0) % Calcium 10.2 9.4 (8.4-10.2) mg/dL AST 39 (17-59) U/L ALT 27 (4-49) U/L Alkaline Phosphatase 70 (38-126) U/L Total Protein 7.2 (6.3-8.2) g/dL Albumin 4.2 (3.5-5.0) g/dL Triglycerides 47.60 (0.00-149.00) mg/dL HDL Cholesterol 57.50 (40.00-60.00) mg/dL 04/29/24 Range/Units 05:28 Sodium 136 L (137-145) mmol/L Potassium 4.2 (3.5-5.1) mmol/L Chloride 107 (98-107) mmol/L Carbon Dioxide 25 (22-30) mmol/L BUN 21 H (9-20) mg/dL Creatinine 0.69 (0.66-1.25) mg/dL Glucose 93 (74-99) mg/dL Hemoglobin A1c (<=6.0) % Calcium 9.5 (8.4-10.2) mg/dL AST (17-59) U/L ALT (4-49) U/L Alkaline Phosphatase (38-126) U/L Total Protein (6.3-8.2) g/dL Albumin (3.5-5.0) g/dL Triglycerides (0.00-149.00) mg/dL HDL Cholesterol (40.00-60.00) mg/dL Thyroid panel 04/28/24 Range/Units 20:22 TSH 3.020 (0.465-4.680) mIU/L Calcium panel 04/28/24 04/28/24 04/29/24 Range/Units 18:59 20:22 05:28 Calcium 10.2 9.4 9.5 (8.4-10.2) mg/dL Albumin 4.2 (3.5-5.0) g/dL Pituitary panel 04/28/24 04/28/24 04/29/24 Range/Units 18:59 20:22 05:28 Sodium 134 L 136 L 136 L (137-145) mmol/L Potassium 4.8 4.0 4.2 (3.5-5.1) mmol/L Chloride 101 106 107 (98-107) mmol/L Carbon Dioxide 23 25 25 (22-30) mmol/L BUN 27 H 24 H 21 H (9-20) mg/dL Creatinine 0.80 0.73 0.69 (0.66-1.25) mg/dL Glucose 109 H 108 H 93 (74-99) mg/dL Calcium 10.2 9.4 9.5 (8.4-10.2) mg/dL TSH 3.020 (0.465-4.680) mIU/L Adrenal panel 04/28/24 04/28/24 04/29/24 Range/Units 18:59 20:22 05:28 Sodium 134 L 136 L 136 L (137-145) mmol/L Potassium 4.8 4.0 4.2 (3.5-5.1) mmol/L Chloride 101 106 107 (98-107) mmol/L Carbon Dioxide 23 25 25 (22-30) mmol/L BUN 27 H 24 H 21 H (9-20) mg/dL Creatinine 0.80 0.73 0.69 (0.66-1.25) mg/dL Glucose 109 H 108 H 93 (74-99) mg/dL Calcium 10.2 9.4 9.5 (8.4-10.2) mg/dL Total Bilirubin 0.7 (0.2-1.3) mg/dL AST 39 (17-59) U/L ALT 27 (4-49) U/L Alkaline Phosphatase 70 (38-126) U/L Total Protein 7.2 (6.3-8.2) g/dL Albumin 4.2 (3.5-5.0) g/dL - Imaging Chest x-ray: report reviewed, image reviewed CT scan - chest: image reviewed EKG: image reviewed Additional studies: Carotid Dopplers, vein mapping, radial artery mapping reviewed. Will review heart catheterization and echocardiogram films with Dr. Lawson Assessment and Plan Assessment: Triple-vessel coronary artery disease, STEMI this admission Chest pain, secondary to above History of hyperlipidemia, cholesterol 203, LDL 136 Ribeiro's esophagitis Left lower extremity DVT and multiple PEs in August 2019 maintained on Eliquis outpatient, last dose 04/28 COVID in 2020 Arthritis in both shoulders status post recent steroid injection and history of right shoulder surgery Lifelong non-smoker Plan: The patient was seen and examined this morning sitting up in recliner in the intensive care unit in no acute distress. Denies any chest pain or pressure currently, denies shortness of breath. The usual perioperative course of open-heart surgery was discussed in detail with the patient, risks and benefits were reviewed, all questions were answered. Preoperative testing has been initiated, once completed we will calculate STS risk score and discuss with the patient. Will perform 5 m walk test. The case was discussed last night between Dr. Sarah and Dr. Turcios, Dr. Lawson will see the patient today and review his films and make further recommendations. Continue aspirin, statin, beta-alexandr therapy. Continue to hold Eliquis until further decision is made regarding surgery. Continue medical management per internal medicine, cardiology. Thank you Dr. Turcios for this consult. I have personally seen and examined the patient, performed the documentation and the assessment and plan as written. Number of minutes spent on the visit: 30. GÉNESIS Vila
[2024-04-29] MEDS: METOPROLOL TARTRATE 12.5 MG TAB PO SCH (09:02)
[2024-04-29] MEDS: HEPARIN SODIUM 1,000 UN/ML (10ML VL) IV PRN (09:10)
--- NOTE | 2024-04-29 09:30 | XR ---
EXAMINATION TYPE: XR chest 2V DATE OF EXAM: 04/29/2024 6:31 AM CLINICAL INDICATION: Male, 68 years old with history of preop cabg; COMPARISON: None TECHNIQUE: XR chest 2V Frontal view of the chest. FINDINGS: Lungs/Pleura: There is no evidence of pleural effusion, focal consolidation, or pneumothorax. Pulmonary vascularity: Unremarkable. Heart/mediastinum: Cardiomediastinal silhouette is unremarkable. Musculoskeletal: No acute osseous pathology. IMPRESSION: No acute cardiopulmonary disease/process. [facility], , 04/29/2024 9:28 AM
--- NOTE | 2024-04-29 09:44 | CT ---
EXAMINATION TYPE: CT chest wo con DATE OF EXAM: 04/29/2024 COMPARISON: None HISTORY: eval aorta CT DLP: 351.[address] of the chest was performed with lung and mediastinal window settings submitted. The la ck of contrast limits evaluation of the vascular, mediastinal and parenchymal structures including th e upper abdomen. LUNGS: The lungs are clear and free of infiltrate. Mild compressive basilar atelectasis. No pulmonary nodule or mass is detected. No pleural effusion. No CT evidence of interstitial lung disease. MEDIASTINUM/NEFTALI: Thoracic aorta is of normal caliber with limited evaluation given lack of contrast . Mild calcified atheromatous changes noted. The heart is not enlarged. No evidence for mediastinal mass. No lymph nodes greater than 1cm. Calcified left hilar lymph nodes. Moderate coronary artery c alcifications. UPPER ABDOMEN: No significant abnormality is seen. Splenic granulomata. OTHER: No significant other abnormality. IMPRESSION: 1. Thoracic aorta is of normal caliber with limited evaluation given lack of contrast. Mild calcifie d atheromatous changes noted. [facility], , 04/29/2024 9:42 AM
[2024-04-29] MEDS: HEPARIN SOD,PORK IN 0.45% NACL 25,000 UNIT in 0.45% NACL 1 250ML.BAG IV SCH (09:54)
--- NOTE | 2024-04-29 13:39 | CA ---
Transthoracic Echo Report Name: Lui Trevino Age: 68 Gender: M : 1955 Exam Date: 04/29/2024 08:09 Exam Location: [facility] Ht (in): 73 Wt (lb): 215 Ordering Physician: Wagner Turcios MD ([id number]) Attending/Referring Phys: [employer]S Assistant Annabelle Horton RDCS Procedure CPT: Indications: ME, Non-ST elevation (NSTEMI) myocardial infarction Cardiac Hx: Technical Quality: Technically difficult study Contrast 1: Definity Total Dose (mL): 2 Contrast 2: Total Dose (mL): MEASUREMENTS (Male / Female) Normal Values 2D ECHO LV Diastolic Diameter PLAX 3.8 cm 4.2 - 5.9 / 3.9 - 5.3 cm LV Systolic Diameter PLAX 2.6 cm IVS Diastolic Thickness 1.2 cm 0.6 - 1.0 / 0.6 - 0.9 cm LVPW Diastolic Thickness 1.2 cm 0.6 - 1.0 / 0.6 - 0.9 cm LV Relative Wall Thickness 0.6 RV Internal Dim ED PLAX 3.5 cm LV Diastolic Volume MOD BP 105.0 cm??? 67 - 155 / 56 - 104 cm??? LV Systolic Volume MOD BP 53.3 cm??? 22 - 58 / 19 - 49 cm??? LV Ejection Fraction MOD BP 49.2 % >= 55 % LV Cardiac Index MOD BP 1327.2 cm???/min???m??? LV Diastolic Volume MOD 4C 113.6 cm??? LV Systolic Volume MOD 4C 48.3 cm??? LV Ejection Fraction MOD 4C 57.5 % LV Cardiac Index MOD 4C 1677.8 cm???/min???m??? LV Diastolic Length 4C 8.3 cm LV Systolic Length 4C 7.4 cm LV Diastolic Volume MOD 2C 94.6 cm??? LV Systolic Volume MOD 2C 54.4 cm??? LV Ejection Fraction MOD 2C 42.5 % LV Cardiac Index MOD 2C 1031.7 cm???/min???m??? LV Diastolic Length 2C 8.6 cm LV Systolic Length 2C 8.0 cm LA Volume 48.5 cm??? 18 - 58 / 22 - 52 cm??? LA Volume Index 21.5 cm???/m??? 16 - 28 cm???/m??? M-MODE Aortic Root Diameter MM 3.8 cm LA Systolic Diameter MM 3.9 cm LA Ao Ratio MM 1.0 AV Cusp Separation MM 2.1 cm DOPPLER AV Peak Velocity 101.7 cm/s AV Peak Gradient 4.1 mmHg AV Mean Velocity 71.5 cm/s AV Mean Gradient 2.3 mmHg AV Velocity Time Integral 19.0 cm LVOT Peak Velocity 80.0 cm/s LVOT Peak Gradient 2.6 mmHg LVOT Velocity Time Integral 16.9 cm MV Area PHT 2.7 cm??? Mitral E Point Velocity 51.3 cm/s Mitral A Point Velocity 75.0 cm/s Mitral E to A Ratio 0.7 MV Deceleration Time 280.4 ms MV E' Velocity 5.8 cm/s Mitral E to MV E' Ratio 8.9 FINDINGS Left Ventricle Mildly increased left ventricular wall thickness. Left ventricular cavity size normal. [place] hypokinetic. Moderately reduced global left ventricular systolic function. Left ventricular ejection fraction is estimated at 35-40 %. Grade 1 diastolic dysfunction. Right Ventricle Normal right ventricular size and function. Right ventricular systolic pressure within normal limits. Right Atrium Normal right atrial size. Left Atrium Normal left atrial size. Mitral Valve Structurally normal mitral valve. No mitral stenosis or prolapse. Trace mitral regurgitation. Aortic Valve Trileaflet aortic valve. No aortic valve stenosis or regurgitation. Tricuspid Valve Structurally normal tricuspid valve. Mild tricuspid regurgitation. Pulmonic Valve Structurally normal pulmonic valve. Pericardium No pericardial effusion. Aorta Normal size aortic root and proximal ascending aorta. CONCLUSIONS LVEF 35% Mild concentric LVH Apical hypokinesia Grade 1 diastolic function Normal RV size and systolic function No significant valvular dysfunction Previewed by: Dr Rony Aviles (Electronically Signed) Final Date: 29 April 2024 13:38
--- NOTE | 2024-04-29 15:58 | P.CNPUL ---
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 He presented here to the emergency room yesterday with chest pain. Was found to have a transient ST segment elevation myocardial infarction and had undergone cardiac catheterization last evening that revealed calcified coronary arteries, severe stenosis in the proximal and mid LAD, severe stenosis in the proximal left circumflex and obtuse marginal branch 1 and 2, moderate to significant disease in the mid RCA. He is recommended coronary artery bypass grafting. He is currently on a heparin drip. The plan is for continue to hold his Eliquis and surgery on Wednesday, May 01, 2024. He is seen today in consultation. He is currently sitting up in a chair at the bedside. Awake and alert in no acute distress. Maintaining O2 saturations in the 90s on room air. He is able to pull 3 L on the incentive spirometer. Chest x-ray reveals no acute pulmonary process. CT scan of the chest reveals air lung sparrow. No pulmonary nodule or mass detected. Thoracic aorta is of normal caliber. Cardiogram does revealed impaired left ventricular systolic function with an ejection fraction of 35 to 40%. Apical hypokinesia. White count 7.9. Hemoglobin 13.1. Platelets 236. Sodium 136. Potassium 4.2. Bicarb 25. BUN 21. Creatinine 0.69. Troponin 0.118, 0.863. Hepatitis screen negative. Carotid Dopplers revealed no hemodynamically significant stenosis bilaterally. Review of Systems REVIEW OF SYSTEMS: CONSTITUTIONAL: Denies any recent significant weight loss or weight gain. EYES: Denies change in vision. EARS, NOSE, MOUTH, THROAT: Denies headaches, denies sore throat. CARDIOVASCULAR: Positive for chest pain, no palpitations or syncopal episodes. RESPIRATORY: Denies shortness of breath, cough, congestion or hemoptysis. GASTROINTESTINAL: Denies change in appetite, denies abdominal pain GENITOURINARY: Denies hematuria, denies infections. MUSKULOSKELETAL: Denies pain, denies swelling. INTEGUMENTARY: Denies rash, denies eczema. NEUROLOGICAL: Denies recent memory loss, no recent seizure activity. PSYCHIATRIC: Denies anxiety, denies depression. HEMATOLOGIC/LYMPHATIC: Denies anemia, denies enlarged lymph nodes. Past Medical History Past Medical History: Coronary Artery Disease (CAD), Chest Pain / Angina, Deep Vein Thrombosis (DVT), GERD/Reflux, Hyperlipidemia, Myocardial Infarction ([place]), Prostate Disorder, Pulmonary Embolus (PE), Skin Disorder Additional Past Medical History / Comment(s): psoriasis ( wrist and elbows both arms), had COVID 03/2021. 08/2019 blood clot in legs and lung . arthritis in hands, History of PE; Ribeiro's esophagitis History of Any Multi-Drug Resistant Organisms: None Reported Past Surgical History: Orthopedic Surgery Additional Past Surgical History / Comment(s): bl knee replacement, rt shoulder surgery after fx, EGD 07/26/21 most prostate removed no cancer Past Anesthesia/Blood Transfusion Reactions: Previous Problems w/ Anesthesia, Postoperative Nausea & Vomiting (PONV) Additional Past Anesthesia/Blood Transfusion Reaction / Comment(s): diff swallowing after EGD,ribeiro esophagus. no blood transfusions Past Psychological History: No Psychological Hx Reported Smoking Status: Never smoker Past Alcohol Use History: Rare Additional Past Alcohol Use History / Comment(s): 1 drink occasionally on the weekends Past Drug Use History: None Reported - Past Family History Father Family Medical History: Cancer, Coronary Artery Disease (CAD) Additional Family Medical History / Comment(s): esophageal Mother Family Medical History: Cancer Additional Family Medical History / Comment(s): breast Medications and Allergies Home Medications Medication Instructions Recorded Confirmed Type Multivitamins, Thera [Multivitamin 1 tab PO DAILY 07/22/21 04/28/24 History (formulary)] Apixaban [Eliquis] 2.5 mg PO BID 04/28/24 04/28/24 History Pantoprazole [Protonix] 40 mg PO DAILY 04/28/24 04/28/24 History methylPREDNISolone Dose Pack See Taper PO DIRECTED 04/28/24 04/28/24 History [Medrol Dose Pack] Allergies Allergy/AdvReac Type Severity Reaction Status Date / Time glycopyrrolate Allergy diff Verified 04/28/24 19:10 swallowing, dry mouth oxycodone [From Percocet] Allergy diff Verified 04/28/24 19:10 swallowing, dry mouth Physical Exam Vitals: Vital Signs Temp Pulse Resp BP Pulse Ox 04/29/24 13:05 61 15 97 04/29/24 13:00 63 21 116/63 96 04/29/24 12:55 59 L 18 97 04/29/24 12:50 56 L 15 94 L 04/29/24 12:45 60 17 04/29/24 12:40 55 L 28 H 04/29/24 12:35 60 19 04/29/24 12:30 58 L 04/29/24 12:25 53 L 04/29/24 12:20 58 L 04/29/24 12:15 58 L 04/29/24 12:10 58 L 04/29/24 12:05 61 04/29/24 12:00 98.2 F 56 L 16 130/52 95 04/29/24 11:55 58 L 04/29/24 11:50 63 04/29/24 11:45 54 L 04/29/24 11:40 54 L 04/29/24 11:35 55 L 04/29/24 11:30 55 L 04/29/24 11:25 56 L 04/29/24 11:20 55 L 04/29/24 11:15 55 L 04/29/24 11:10 61 04/29/24 11:05 56 L 04/29/24 11:00 50 L 14 118/62 95 04/29/24 10:55 53 L 04/29/24 10:50 51 L 04/29/24 10:45 51 L 04/29/24 10:40 51 L 04/29/24 10:35 48 L 04/29/24 10:30 49 L 04/29/24 10:25 48 L 04/29/24 10:20 50 L 04/29/24 10:15 49 L 04/29/24 10:10 50 L 04/29/24 10:05 50 L 04/29/24 10:00 51 L 12 121/58 97 04/29/24 09:55 48 L 04/29/24 09:50 52 L 04/29/24 09:45 54 L 04/29/24 09:40 52 L 04/29/24 09:35 57 L 04/29/24 09:30 56 L 04/29/24 09:25 57 L 04/29/24 09:20 56 L 04/29/24 09:15 58 L 04/29/24 09:10 55 L 04/29/24 09:05 57 L 04/29/24 09:00 57 L 16 101/68 95 04/29/24 08:55 58 L 04/29/24 08:50 60 04/29/24 08:45 59 L 04/29/24 08:40 60 04/29/24 08:35 61 04/29/24 08:30 57 L 04/29/24 08:25 57 L 04/29/24 08:20 58 L 04/29/24 08:15 58 L 04/29/24 08:00 98.2 F 62 19 105/64 95 04/29/24 07:00 56 L 16 125/79 96 04/29/24 06:00 50 L 10 L 122/73 91 L 04/29/24 05:00 48 L 13 118/72 95 04/29/24 04:00 49 L 14 126/76 95 04/29/24 03:00 52 L 13 126/71 95 04/29/24 02:00 51 L 12 129/70 93 L 04/29/24 01:00 51 L 10 L 125/72 91 L 04/29/24 00:00 97.4 F L 51 L 15 137/80 95 04/28/24 23:00 48 L 18 150/83 94 L 04/28/24 22:00 54 L 11 L 157/83 94 L 04/28/24 21:00 58 L 12 151/82 95 04/28/24 20:30 98.6 F 60 12 149/89 96 04/28/24 18:52 98.1 F 62 20 166/85 98 Intake and Output 04/29/24 04/29/24 04/29/24 06:59 14:59 22:59 Intake Total 215 508.5 Output Total 1100 950 Balance -885 -441.5 Intake: IV 215 140 Sodium Chloride 0.9% 1, 215 140 000 ml @ 75 mls/hr IV . [id number] [facility] Rx#:[id number] Intake, IV Titration 128.5 Amount Heparin Sod,Pork in 0.45% 128.5 NaCl 25,000 unit In 0.45 % NaCl 1 250ml.bag @ 10. 254 UNITS/KG/HR 10 mls/hr IV .Q24H [facility] Rx#: [id number] Oral 240 Output: Urine 1100 950 Other: Voiding Method Urinal # Bowel Movements 0 Weight 95.2 kg GENERAL EXAM: Alert, very pleasant 68-year-old male patient, up in a chair, on room air, currently comfortable in no apparent distress. HEAD: Normocephalic. EYES: Normal reaction of pupils, equal size. NOSE: Clear with pink turbinates. THROAT: No erythema or exudates. NECK: No masses, no JVD. CHEST: No chest wall deformity. LUNGS: Equal air entry with no crackles, wheeze, rhonchi or dullness. CVS: S1 and S2 normal with no audible murmur, regular rhythm. ABDOMEN: No hepatosplenomegaly, normal bowel sounds, no guarding or rigidity. SPINE: No scoliosis or deformity SKIN: No rashes CENTRAL NERVOUS SYSTEM: No focal deficits, tone is normal in all 4 extremities. EXTREMITIES: There is no peripheral edema. No clubbing, no cyanosis. Peripheral pulses are intact. Results - Laboratory Findings CBC and BMP: 04/29/24 05:28 04/29/24 05:28 PT/INR, D-dimer PT 10.5 sec (10.0-12.5) 04/29/24 05:28 INR 1.0 (<1.2) 04/29/24 05:28 Abnormal lab findings: Abnormal Labs 04/28/24 04/28/24 04/28/24 18:59 18:59 18:59 WBC 11.9 H Neutrophils # 9.2 H APTT 21.7 L Sodium 134 L BUN 27 H Glucose 109 H Hemoglobin A1c Troponin I Cholesterol LDL Cholesterol, Calc 04/28/24 04/28/24 04/28/24 18:59 20:22 20:22 WBC 11.0 H Neutrophils # 8.6 H APTT Sodium 136 L BUN 24 H Glucose 108 H Hemoglobin A1c Troponin I 0.118 H* Cholesterol 203.00 H LDL Cholesterol, Calc 136.0 H 04/28/24 04/28/24 04/29/24 20:22 20:28 05:28 WBC Neutrophils # APTT 57.1 H Sodium 136 L BUN 21 H Glucose Hemoglobin A1c 6.4 H Troponin I Cholesterol LDL Cholesterol, Calc 04/29/24 04/29/24 04/29/24 05:28 07:42 14:45 WBC Neutrophils # APTT 37.3 H 46.8 H Sodium BUN Glucose Hemoglobin A1c Troponin I 0.863 H* Cholesterol LDL Cholesterol, Calc - Diagnostic Findings Chest x-ray: image reviewed CT scan - chest: image reviewed U/S of Legs: image reviewed Assessment and Plan Assessment: Acute ST segment elevation myocardial infarction severe triple-vessel coronary artery disease. Plan is for coronary artery bypass grafting on 05/01/2024 History of pulmonary embolism/DVT and factor V deficiency, maintained on Eliquis since 2019, currently on hold History of COVID-19 infection in 2020 History of arthritis Non-smoker History of prostate disorder History of gastroesophageal reflux disease Plan: The patient was seen and evaluated Imaging, labs and medications reviewed Currently stable and on room air Maintained on a heparin drip Eliquis remains on hold Pulling 3 L on the incentive spirometer Plan is for surgery on 05/01/2024 We will continue to follow and make further recommendations based on his clinical status I have personally seen and examined the patient, performed the documentation and the assessment and plan as written. Number of minutes spent on the visit: 20.
--- NOTE | 2024-04-29 16:55 | P.HPIM ---
History of Present Illness H&P Date: 04/29/24 Chief Complaint: Chest pressure Pleasant 68-year-old patient follows with Dr. Bolivar Vizcaino. No prior history of any coronary artery disease. Patient started off at home with having right- sided chest pressure. Lasted about 20 minutes. Got a bit better then again got worse. EMS was called. Starting having more chest pressure. Weak and tired. When EMS arrived they did EKG patient was found to have ST elevation ND. Was given nitro. Still having chest pain when patient got into the ER. Patient then taken to the [facility] yesterday evening by Dr. Turcios from cardiology. Was found to have calcified coronary arteries, severe stenosis of the proximal mid LAD. And also severe stenosis of proximal left circumflex obtuse marginal branch 1 and 2. And significant disease of the RCA. Patient moved to the ICU. Cardiothoracic surgery was consulted. at the bedside. Review of systems: GEN.: Tired EYES: None HEENT: None NECK: None RESPIRATORY: None CARDIOVASCULAR: [As above GASTROINTESTINAL: None GENITOURINARY: None MUSCULOSKELETAL: None LYMPHATICS: None HEMATOLOGICAL: None PSYCHIATRY: None NEUROLOGICAL: None Past medical history to include: Prior history of DVT and pulm embolism, GERD, hyperlipidemia, BPH, psoriasis, COVID and February 2021, osteoarthritis, Ribeiro's esophagus. Denies any history of CAD. 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 . Non-smoker. Maybe 1 drink on weekends. Occasionally Physical examination: VITAL SIGNS: 98.1, 62, 20, 166 per 85, 98% room air upon presentation GENERAL: BMI 27.7, reclining bed awake a bit tired. EYES: Pupils equal. Conjunctiva monae l. HEENT: External appearance of nose and ears normal, oral cavity grossly normal. NECK: JVD not raised; masses not palpable. HEART: First and second heart sounds are normal; no edema. LUNGS: Respiratory rate normal; clear to auscultation. ABDOMEN: Soft, nontender, liver spleen not palpable, no masses palpable. PSYCH: Alert and oriented x3; mood and affect monae l. MUSCULOSKELETAL:No Clubbing/cyanosis;muscles-grossly intact NEUROLOGICAL: Cranial nerves grossly intact; no facial asymmetry, power and sensation grossly intact. LYMPHATICS: No lymph nodes palpable in the axilla and neck INVESTIGATIONS, reviewed in the clinical context: April 29: White count 7.9 hemoglobin 13.1 platelets 236 potassium 4.2 creatinine 0.69 Troponin I 0.118, 0.863 EKG reported by the EMS: ST elevation. Carotid Doppler: No significant stenosis 2D echocardiogram: [place] hypokinetic. Moderately reduced global LV function EF 35 to 40%. Assessment plan: -Acute non-ST elevation myocardial infarction. Patient emergently taken to the cardiac [facility] -Triple-vessel coronary artery disease per cardiac catheterization Aspirin. Lopressor. Nitropaste. -IV heparin monitoring Follow PTT -Essential hypertension Lopressor 12.5 mg twice daily -Hyperlipidemia Lipitor 80 mg nightly Patient seen by cardiology upon presentation was seen to cardiac [facility]. Cardiothoracic surgery has been consulted. Care was discussed with the patient and at the bedside. Questions answered Past Medical History Past Medical History: Coronary Artery Disease (CAD), Chest Pain / Angina, Deep Vein Thrombosis (DVT), GERD/Reflux, Hyperlipidemia, Myocardial Infarction ([place]), Prostate Disorder, Pulmonary Embolus (PE), Skin Disorder Additional Past Medical History / Comment(s): psoriasis ( wrist and elbows both arms), had COVID 03/2021. 08/2019 blood clot in legs and lung . arthritis in hands, History of PE; Ribeiro's esophagitis History of Any Multi-Drug Resistant Organisms: None Reported Past Surgical History: Orthopedic Surgery Additional Past Surgical History / Comment(s): bl knee replacement, rt shoulder surgery after fx, EGD 07/26/21 most prostate removed no cancer Past Anesthesia/Blood Transfusion Reactions: Previous Problems w/ Anesthesia, Postoperative Nausea & Vomiting (PONV) Additional Past Anesthesia/Blood Transfusion Reaction / Comment(s): diff swallowing after EGD,ribeiro esophagus. no blood transfusions Past Psychological History: No Psychological Hx Reported Smoking Status: Never smoker Past Alcohol Use History: Rare Additional Past Alcohol Use History / Comment(s): 1 drink occasionally on the weekends Past Drug Use History: None Reported - Past Family History Father Family Medical History: Cancer, Coronary Artery Disease (CAD) Additional Family Medical History / Comment(s): esophageal Mother Family Medical History: Cancer Additional Family Medical History / Comment(s): breast Medications and Allergies Home Medications Medication Instructions Recorded Confirmed Type Multivitamins, Thera [Multivitamin 1 tab PO DAILY 07/22/21 04/28/24 History (formulary)] Apixaban [Eliquis] 2.5 mg PO BID 04/28/24 04/28/24 History Pantoprazole [Protonix] 40 mg PO DAILY 04/28/24 04/28/24 History methylPREDNISolone Dose Pack See Taper PO DIRECTED 04/28/24 04/28/24 History [Medrol Dose Pack] Allergies Allergy/AdvReac Type Severity Reaction Status Date / Time glycopyrrolate Allergy diff Verified 04/28/24 19:10 swallowing, dry mouth oxycodone [From Percocet] Allergy diff Verified 04/28/24 19:10 swallowing, dry mouth Physical Exam Vitals: Vital Signs Temp Pulse Resp BP Pulse Ox 04/29/24 09:40 52 L 04/29/24 09:35 57 L 04/29/24 09:30 56 L 04/29/24 09:25 57 L 04/29/24 09:20 56 L 04/29/24 09:15 58 L 04/29/24 09:10 55 L 04/29/24 09:05 57 L 04/29/24 09:00 57 L 16 101/68 95 04/29/24 08:55 58 L 04/29/24 08:50 60 04/29/24 08:45 59 L 04/29/24 08:40 60 04/29/24 08:35 61 04/29/24 08:30 57 L 04/29/24 08:25 57 L 04/29/24 08:20 58 L 04/29/24 08:15 58 L 04/29/24 08:00 98.2 F 62 19 105/64 95 04/29/24 07:00 56 L 16 125/79 96 04/29/24 06:00 50 L 10 L 122/73 91 L 04/29/24 05:00 48 L 13 118/72 95 04/29/24 04:00 49 L 14 126/76 95 04/29/24 03:00 52 L 13 126/71 95 04/29/24 02:00 51 L 12 129/70 93 L 04/29/24 01:00 51 L 10 L 125/72 91 L 04/29/24 00:00 97.4 F L 51 L 15 137/80 95 04/28/24 23:00 48 L 18 150/83 94 L 04/28/24 22:00 54 L 11 L 157/83 94 L 04/28/24 21:00 58 L 12 151/82 95 04/28/24 20:30 98.6 F 60 12 149/89 96 04/28/24 18:52 98.1 F 62 20 166/85 98 Intake and Output 04/28/24 04/29/24 04/29/24 22:59 06:59 14:59 Intake Total 525 215 428.5 Output Total 500 1100 0 Balance 25 -885 428.5 Intake: IV 525 215 60 Sodium Chloride 0.9% 1, 225 215 60 000 ml @ 75 mls/hr IV . [id number] [facility] Rx#:[id number] Intake, IV Titration 128.5 Amount Heparin Sod,Pork in 0.45% 128.5 NaCl 25,000 unit In 0.45 % NaCl 1 250ml.bag @ 10. 254 UNITS/KG/HR 10 mls/hr IV .Q24H [facility] Rx#: [id number] Oral 240 Output: Urine 500 1100 0 Other: Voiding Method Urinal Weight 97.522 kg 95.2 kg Results CBC & Chem 7: 04/29/24 05:28 04/29/24 05:28 Labs: Abnormal Lab Results - Last 24 Hours (Table) 04/28/24 04/28/24 04/28/24 Range/Units 18:59 18:59 18:59 WBC 11.9 H (3.8-10.6) k/uL Neutrophils # 9.2 H (1.3-7.7) k/uL APTT 21.7 L (22.0-30.0) sec Sodium 134 L (137-145) mmol/L BUN 27 H (9-20) mg/dL Glucose 109 H (74-99) mg/dL Hemoglobin A1c (<=6.0) % Troponin I (0.000-0.034) ng/mL Cholesterol (0.00-200.00) mg/dL LDL Cholesterol, Calc (0.0-131.0) mg/dL 04/28/24 04/28/24 04/28/24 Range/Units 18:59 20:22 20:22 WBC 11.0 H (3.8-10.6) k/uL Neutrophils # 8.6 H (1.3-7.7) k/uL APTT (22.0-30.0) sec Sodium 136 L (137-145) mmol/L BUN 24 H (9-20) mg/dL Glucose 108 H (74-99) mg/dL Hemoglobin A1c (<=6.0) % Troponin I 0.118 H* (0.000-0.034) ng/mL Cholesterol 203.00 H (0.00-200.00) mg/dL LDL Cholesterol, Calc 136.0 H (0.0-131.0) mg/dL 04/28/24 04/28/24 04/29/24 Range/Units 20:22 20:28 05:28 WBC (3.8-10.6) k/uL Neutrophils # (1.3-7.7) k/uL APTT 57.1 H (22.0-30.0) sec Sodium 136 L (137-145) mmol/L BUN 21 H (9-20) mg/dL Glucose (74-99) mg/dL Hemoglobin A1c 6.4 H (<=6.0) % Troponin I (0.000-0.034) ng/mL Cholesterol (0.00-200.00) mg/dL LDL Cholesterol, Calc (0.0-131.0) mg/dL 04/29/24 04/29/24 Range/Units 05:28 07:42 WBC (3.8-10.6) k/uL Neutrophils # (1.3-7.7) k/uL APTT 37.3 H (22.0-30.0) sec Sodium (137-145) mmol/L BUN (9-20) mg/dL Glucose (74-99) mg/dL Hemoglobin A1c (<=6.0) % Troponin I 0.863 H* (0.000-0.034) ng/mL Cholesterol (0.00-200.00) mg/dL LDL Cholesterol, Calc (0.0-131.0) mg/dL
[2024-04-30] MEDS: MUPIROCIN 2% OINT 22 GM TUBE NASAL SCH (08:32)
[2024-04-30] MEDS: NITROGLYCERIN SL TABS 0.4 MG TAB SUBLINGUAL PRN (08:32)
--- NOTE | 2024-04-30 08:36 | P.PN ---
Subjective History of Present Illness: The patient is a 68-year-old male with a prior history of DVT and pulmonary embolism in 2019, maintained on Eliquis, history of hyperlipidemia who presented with symptoms of chest discomfort. He had an episode of chest discomfort to the right side of the chest that is new to him with no other symptoms of dyspnea or dizziness. Initial EKG by EMS was normal subsequent EKG showed ST segment elevation in the lateral precordial leads and upon arrival to the emergency room his ST segment normalized and he was pain-free. He has no prior similar symptoms and he is quite active physically without any associated chest d iscomfort, dizziness or palpitations. He has no prior history of myocardial infarction, heart failure or arrhythmia. He has no history of diabetes or hypertension, he is a non-smoker. Medications: Eliquis and Protonix 04/29 Patient seen and examined. Patient had approximately 30 minutes of chest pain however improved with aspirin, nitro and by the time he was taken to [facility] was not having any further pain. Catheterization showed multivessel CAD with recommendations for bypass. Preoperative workup has begun. He denies any further chest pain. Mildly bradycardic on metoprolol. Remains on heparin drip. Blood work from this morning pending. 04/30 Patient seen and examined. Patient had echocardiogram performed which showed left ventricular ejection fraction 35% with apical hypokinesis. He is being evaluated for likely bypass surgery tomorrow. He did start to have chest discomfort approximately 8:00 and his nitroglycerin patch was changed. We will give additional nitro and he remains on a heparin drip. EKG pending. Physical Examination: 68-year-old male, alert oriented, pain-free evaluated in the cardiac catheterization laboratory,Blood pressure 150/70, Heart rate 70 Head: Normocephalic. Eyes: Sclerae nonicteric. Neck: Good carotid upstroke, no bruit, no jugular venous distention. Lungs: Clear to auscultation. Heart: Regular rate and rhythm, S1-S2, no S3, no rub. Systolic ejection murmur. Abdomen: Soft nontender, positive bowel sounds no organomegaly. Extremities: No edema, intact distal pulses. EKG: EKG done in the emergency room shows sinus mechanism with no acute ST segment changes. Second EKG from the EMS showed ST segment elevation in the lateral precordial leads Impression: 1. Transient ST segment elevation consistent with acute STEMI probably with recannulization of the vessel 2. History of DVT and pulmonary embolism maintained on Eliquis since 2019 3. History of [place]'s esophagitis with no recent bleeding 4. History of hyperlipidemia 5. multivessel CAD 6. Asymptomatic sinus bradycardia 7. Ischemic cardiomyopathy EF 35% Plan: Patient with recurrent episode of chest pain. Given nitro and increase metoprolol to 25 mg and monitor response. Ideally chest pain-free. Otherwise evaluated for CABG likely tomorrow. EKG repeated with diffuse T-wave inversions V3 through V4. Objective - Vital Signs Vital signs: Vital Signs Temp 97.4 F L 04/30/24 04:00 Pulse 67 04/30/24 07:00 Resp 12 04/30/24 07:00 BP 110/73 04/30/24 07:00 Pulse Ox 96 04/30/24 07:00 FiO2 Intake & Output 04/29/24 04/30/24 04/30/24 18:59 06:59 18:59 Intake Total 1811.679 840 190.43 Output Total 1350 750 0 Balance 461.679 90 190.43 Weight 91.4 kg Intake: IV 270 240 20 Invasive Line 1 30 Sodium Chloride 0.9% 1, 100 20 000 ml @ 20 mls/hr IV . Q24H [facility] Rx#:[id number] Sodium Chloride 0.9% 1, 240 140 000 ml @ 75 mls/hr IV . [id number] [facility] Rx#:[id number] Intake, IV Titration 221.679 170.43 Amount Heparin Sod,Pork in 0.45% 221.679 170.43 NaCl 25,000 unit In 0.45 % NaCl 1 250ml.bag @ 10. 254 UNITS/KG/HR 10 mls/hr IV .Q24H [facility] Rx#: [id number] Oral 1320 600 Output: Urine 1350 750 0 Other: Voiding Method Urinal Urinal # Bowel Movements 0 - Labs CBC & Chem 7: 04/29/24 05:28 04/29/24 05:28 Labs: Abnormal Lab Results - Last 24 Hours (Table) 04/29/24 04/29/24 04/30/24 Range/Units 14:45 14:45 05:23 APTT 46.8 H 40.7 H (22.0-30.0) sec Crossmatch See Detail
[2024-04-30] MEDS: METOPROLOL TARTRATE 12.5 MG TAB PO ONE (08:40)
--- NOTE | 2024-04-30 08:52 | P.PN ---
Subjective Progress Note Date: 04/30/24 Principal diagnosis: Triple-vessel coronary artery disease, STEMI this admission. 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 Denied any chest pain or shortness of breath this morning however he did start to have chest pain shortly after my assessment and was given sublingual nitro. His only complaint is nervousness regarding pending surgery which is scheduled for tomorrow. All questions answered. Preoperative testing completed, STS risk score calculated, patient considered low risk. Remains in sinus rhythm, hemodynamically stable, currently on room air with oxygen saturation in the mid to high 90s. No other new concerns. Objective - Vital Signs Vital signs: Vital Signs Temp 97.4 F L 04/30/24 04:00 Pulse 67 04/30/24 07:00 Resp 12 04/30/24 07:00 BP 110/73 04/30/24 07:00 Pulse Ox 96 04/30/24 07:00 FiO2 Intake & Output 04/29/24 04/30/24 04/30/24 18:59 06:59 18:59 Intake Total 1811.679 840 190.43 Output Total 1350 750 0 Balance 461.679 90 190.43 Weight 91.4 kg Intake: IV 270 240 20 Invasive Line 1 30 Sodium Chloride 0.9% 1, 100 20 000 ml @ 20 mls/hr IV . Q24H LUIGI Rx#:[id number] Sodium Chloride 0.9% 1, 240 140 000 ml @ 75 mls/hr IV . [id number] LUIGI Rx#:[id number] Intake, IV Titration 221.679 170.43 Amount Heparin Sod,Pork in 0.45% 221.679 170.43 NaCl 25,000 unit In 0.45 % NaCl 1 250ml.bag @ 10. 254 UNITS/KG/HR 10 mls/hr IV .Q24H LUIGI Rx#: [id number] Oral 1320 600 Output: Urine 1350 750 0 Other: Voiding Method Urinal Urinal # Bowel Movements 0 - Exam CONSTITUTIONAL: Appears comfortable, cooperative, no acute distress RESPIRATORY: Lungs sounds clear bilaterally. Respirations even, nonlabored. Currently on room air with oxygen saturation 98%. Able to achieve 3500 mL on incentive spirometry. Strong cough. CARDIOVASCULAR: S1, S2 present. Regular rate and rhythm, sinus rhythm on telemetry. Palpable peripheral pulses bilaterally. No edema present. No calf pain or tenderness noted GASTROINTESTINAL: Abdomen soft, nontender, nondistended. Active bowel sounds p resent 4 quadrants. Tolerating diet GENITOURINARY: Continues to void INTEGUMENTARY: Skin is warm and dry NEUROLOGIC: Cranial nerves II through XII intact MUSKULOSKELETAL: Able to move all extremities, strength equal bilaterally, gait normal PSYCHIATRIC: Alert and oriented to person place and time, appropriate affect, intact judgment and insight - Allied health notes Allied health notes reviewed: nursing - Labs CBC & Chem 7: 04/29/24 05:28 04/29/24 05:28 Labs: Abnormal Lab Results - Last 24 Hours (Table) 04/29/24 04/29/24 04/29/24 Range/Units 07:42 14:45 14:45 APTT 37.3 H 46.8 H (22.0-30.0) sec Crossmatch See Detail 04/30/24 Range/Units 05:23 APTT 40.7 H (22.0-30.0) sec Crossmatch - Imaging and Cardiology Chest x-ray: report reviewed, image reviewed CT scan - chest: report reviewed, image reviewed All preoperative testing reviewed with Dr. 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 Co ntinue to hold Eliquis IV heparin per cardiology Encourage incentive spirometry use Increase activity as tolerated Our plan is for off-pump myocardial revascularization with left internal mammary artery, left radial artery, and endoscopic vein harvest with ligation of the left atrial appendage by Dr. Lawson tomorrow N.p.o. after midnight 5 m walk test not completed due to active chest pain Continue medical management per internal medicine, cardiology More recommendations to follow
[2024-04-30] MEDS ORDERED: METOPROLOL TARTRATE 25 MG TAB PO SCH (09:00)
[2024-04-30] MEDS: ACETAMINOPHEN TAB 325 MG TAB PO PRN (09:52)
[2024-04-30] MEDS ORDERED: MD COMMUNICATION TO PHARMACY 1 EACH MISC PO ONE (10:07)
--- NOTE | 2024-04-30 12:05 | P.PN ---
Subjective Progress Note Date: 04/30/24 Principal diagnosis: Triple-vessel coronary artery disease This is a very pleasant 68-year-old male patient with a known history of VTE/PE and factor V deficiency anticoagulated with Eliquis since 2019, gastroesophageal reflux disease, prostate disorder, family history of premature coronary artery disease, non smoker. He presented here to the emergency room yesterday with ch est pain. Was found to have a transient ST segment elevation myocardial infarction and had undergone cardiac catheterization last evening that revealed calcified coronary arteries, severe stenosis in the proximal and mid LAD, severe stenosis in the proximal left circumflex and obtuse marginal branch 1 and 2, moderate to significant disease in the mid RCA. He is recommended coronary artery bypass grafting. He is currently on a heparin drip. The plan is for continue to hold his Eliquis and surgery on Wednesday, May 01, 2024. He is seen today in consultation. He is currently sitting up in a chair at the bedside. Awake and alert in no acute distress. Maintaining O2 saturations in the 90s on room air. He is able to pull 3 L on the incentive spirometer. Chest x-ray reveals no acute pulmonary process. CT scan of the chest reveals air lung sparrow. No pulmonary nodule or mass detected. Thoracic aorta is of normal caliber. Cardiogram does revealed impaired left ventricular systolic function with an ejection fraction of 35 to 40%. Apical hypokinesia. White count 7.9. Hemoglobin 13.1. Platelets 236. Sodium 136. Potassium 4.2. Bicarb 25. BUN 21. Creatinine 0.69. Troponin 0.118, 0.863. Hepatitis screen negative. Carotid Dopplers revealed no hemodynamically significant stenosis bilaterally. Patient was evaluated today on 04/30/2024, patient is doing well, sitting at the bedside chair, not in any distress, he is a bit anxious about his surgery which is expected. Patient is considered low risk for surgery, he is hemodynamically stable, in sinus rhythm, on room air, and doing extremely well with incentive spirometry. Objective - Vital Signs Vital signs: Vital Signs Temp 98.2 F 04/30/24 08:00 Pulse 56 L 04/30/24 11:00 Resp 17 04/30/24 11:00 BP 132/66 04/30/24 11:00 Pulse Ox 95 04/30/24 11:00 FiO2 Intake & Output 04/29/24 04/30/24 04/30/24 18:59 06:59 18:59 Intake Total 1811.679 840 250.43 Output Total 1350 750 0 Balance 461.679 90 250.43 Weight 91.4 kg Intake: IV 270 240 80 Invasive Line 1 30 Sodium Chloride 0.9% 1, 100 80 000 ml @ 20 mls/hr IV . Q24H LUIGI Rx#:[id number] Sodium Chloride 0.9% 1, 240 140 000 ml @ 75 mls/hr IV . [id number] LUIGI Rx#:[id number] Intake, IV Titration 221.679 170.43 Amount Heparin Sod,Pork in 0.45% 221.679 170.43 NaCl 25,000 unit In 0.45 % NaCl 1 250ml.bag @ 10. 254 UNITS/KG/HR 10 mls/hr IV .Q24H LUIGI Rx#: [id number] Oral 1320 600 Output: Urine 1350 750 0 Other: Voiding Method Urinal Urinal Urinal # Bowel Movements 0 - Exam GENERAL EXAM: 68-year-old white male in no distress HEAD: Normocephalic. EYES: Normal reaction of pupils, equal size. NOSE: Clear with pink turbinates. THROAT: No erythema or exudates. NECK: No masses, no JVD. CHEST: No chest wall deformity. LUNGS: Equal air entry with no crackles, wheeze, rhonchi or dullness. CVS: S1 and S2 normal with no audible murmur, regular rhythm. ABDOMEN: No hepatosplenomegaly, normal bowel sounds, no guarding or rigidity. SKIN: No rashes CENTRAL NERVOUS SYSTEM: No focal deficits, tone is normal in all 4 extremities. EXTREMITIES: There is no peripheral edema. No clubbing, no cyanosis. Peripheral pulses are intact. - Labs CBC & Chem 7: 04/29/24 05:28 04/29/24 05:28 Labs: Abnormal Lab Results - Last 24 Hours (Table) 04/29/24 04/29/24 04/30/24 Range/Units 14:45 14:45 05:23 APTT 46.8 H 40.7 H (22.0-30.0) sec Crossmatch See Detail 04/30/24 Range/Units 08:48 APTT 66.7 H (22.0-30.0) sec Crossmatch Microbiology - Last 24 Hours (Table) 04/28/24 21:46 Nasal Screen MRSA/MSSA - Final Nasal Swab Assessment and Plan Assessment: Impression Acute ST segment elevation myocardial infarction severe triple-vessel coronary artery disease. Scheduled for surgery on 05/01/2024 History of pulmonary embolism/DVT and factor V deficiency, maintained on Eliquis since 2019, currently on hold History of arthritis Non-smoker History of prostate disorder History of gastroesophageal reflux disease Recommendation: Continue incentive spirometry Continue cardiac meds, Eliquis is presently on hold, patient is receiving heparin instead Continue present supportive care measures, Cleared for surgery as scheduled tomorrow, will continue to follow Time with Patient: Less than 30
--- NOTE | 2024-04-30 15:59 | P.PN ---
Progress Note - Text Progress Note Date: 04/30/24 Chief Complaint: Chest pressure Pleasant 68-year-old patient follows with Dr. Bolivar Vizcaino. No prior history of any coronary artery disease. Patient started off at home with having right- sided chest pressure. Lasted about 20 minutes. Got a bit better then again got worse. EMS was called. Starting having more chest pressure. Weak and tired. When EMS arrived they did EKG patient was found to have ST elevation [place]. Was given nitro. Still having chest pain when patient got into the ER. Patient then taken to the [facility] yesterday evening by Dr. Turcios from cardiology. Was found to have calcified coronary arteries, severe stenosis of the proximal mid LAD. And also severe stenosis of proximal left circumflex obtuse marginal branch 1 and 2. And significant disease of the RCA. Patient moved to the ICU. Cardiothoracic surgery was consulted. at the bedside. April 30: ICU. Had right upper chest pressure this morning. Nitropaste placed. Plan for coronary bypass tomorrow. On IV heparin. at the bedside. Active Medications Acetaminophen (Acetaminophen Tab 325 Mg Tab) 650 mg PO Q6HR PRN PRN Reason: Fever and/ or Pain Last Admin: 04/30/24 09:52 Dose: 650 mg Aspirin (Aspirin 81 Mg) 81 mg PO DAILY LUIGI Last Admin: 04/30/24 08:07 Dose: 81 mg Aspirin (Aspirin 325 Mg Tab) 325 mg PO ONCE ONE Stop: 05/01/24 05:01 Atorvastatin Calcium (Atorvastatin 80 Mg Tab) 80 mg PO DAILY LUIGI Last Admin: 04/30/24 08:07 Dose: 80 mg Atorvastatin Calcium (Atorvastatin 10 Mg Tab) 10 mg PO ONCE ONE Stop: 05/01/24 05:01 Calcium Chloride (Calcium Chloride 100 Mg/Ml 10 Ml Syringe) 1,000 mg IVP ONCE ONE Stop: 05/01/24 05:01 Chlorhexidine Gluconate (Chlorhexidine Gluconate 15 Ml Cup) 15 ml MUCOUS MEM ONCE ONE Stop: 05/01/24 05:01 Heparin Sodium (Porcine) (Heparin Sodium 1,000 Un/Ml (10ml Vl)) 0 unit IV PER PROTOCOL PRN; Protocol PRN Reason: Low PTT Last Admin: 04/30/24 07:17 Dose: 2,300 unit Heparin Sodium (Porcine) (Heparin Sodium 1,000 Un/Ml (10ml Vl)) 10,000 unit IV ONCE ONE Stop: 05/01/24 05:01 Heparin Sodium (Porcine) (Heparin Sodium,Porcine 30 Ml 1,000 Unit/Ml Vial) 30,000 unit IV ONCE ONE Stop: 05/01/24 05:01 Heparin Sodium (Porcine) (Heparin Sodium,Porcine 30 Ml 1,000 Unit/Ml Vial) 30,000 unit IV ONCE ONE Stop: 05/01/24 05:01 Heparin Sodium (Porcine) (Heparin Sodium,Porcine 30 Ml 1,000 Unit/Ml Vial) 30,000 unit IV ONCE ONE Stop: 05/01/24 05:01 Sodium Chloride (Saline 0.9%) 1,000 mls @ 20 mls/hr IV .Q24H LUIGI Last Admin: 04/29/24 16:54 Dose: 20 mls/hr Heparin Sodium/Sodium Chloride (25,000 unit/ Sodium Chloride) 250 mls @ 10 mls/hr IV .Q24H LUIGI; Protocol Last Titration: 04/30/24 07:10 Dose: 14.25 units/kg/hr, 13.897 mls/hr Heparin Sodium (Porcine) 5,000 (unit/ Sodium Chloride) 501 mls @ 0 mls/hr IV ONCE ONE Stop: 05/01/24 05:01 Protamine Sulfate 250 mg/ IV (Solution) 25 mls @ 0 mls/hr IV ONCE ONE Stop: 05/01/24 05:01 Nitroglycerin/Dextrose 50 mg/ (IV Solution) 250 mls @ 1.5 mls/hr IV .Q24H LUIGI Albumin Human 50 ml/ IV (Solution) 50 mls @ 100 mls/hr IVPB ONCE ONE; Protocol Stop: 05/01/24 05:29 Albumin Human 50 ml/ IV (Solution) 50 mls @ 100 mls/hr IVPB ONCE ONE; Protocol Stop: 05/01/24 05:29 Clevidipine 25 mg/ IV Solution 50 mls @ 2 mls/hr IV .Q24H LUIGI; Protocol Phenylephrine HCl 40 mg/ (Sodium Chloride) 254 mls @ 0 mls/hr IV .Q0M ONE; Protocol Stop: 05/01/24 05:01 Albumin Human 500 ml/ IV (Solution) 500 mls @ 250 mls/hr IVPB ONCE ONE; Protocol Stop: 05/01/24 06:59 Albumin Human 500 ml/ IV (Solution) 500 mls @ 250 mls/hr IVPB ONCE ONE; Protocol Stop: 05/01/24 06:59 Albumin Human 500 ml/ IV (Solution) 500 mls @ 250 mls/hr IVPB ONCE ONE; Protocol Stop: 05/01/24 06:59 Albumin Human 500 ml/ IV (Solution) 500 mls @ 250 mls/hr IVPB ONCE ONE; Protocol Stop: 05/01/24 06:59 Albumin Human 500 ml/ IV (Solution) 500 mls @ 250 mls/hr IVPB ONCE ONE; Protocol Stop: 05/01/24 06:59 Albumin Human 500 ml/ IV (Solution) 500 mls @ 250 mls/hr IVPB ONCE ONE; Protocol Stop: 05/01/24 06:59 Norepinephrine Bitartrate 4 mg (/ Sodium Chloride) 254 mls @ 0 mls/hr IV .Q0M LUIGI; Protocol Propofol 1,000 mg/ IV Solution 100 mls @ 0 mls/hr IV .Q0M PRN; Protocol PRN Reason: Per Protocol Magnesium Sulfate 16.24 meq/ (IV Solution) 4.06 mls @ 0 mls/hr IV ONCE ONE Stop: 05/01/24 05:01 Cefazolin Sodium 2 gm/ Sodium (Chloride) 50 mls @ 100 mls/hr IVPB ONCE ONE; Protocol Stop: 05/01/24 05:29 Cefazolin Sodium 1,000 mg/ (Sodium Chloride) 1,000 mls @ 999 mls/hr IRRIGATION ONCE ONE; Protocol Stop: 05/01/24 06:00 Cefazolin Sodium 2 gm/ Sodium (Chloride) 50 mls @ 100 mls/hr IVPB ONCE ONE; Protocol Stop: 05/01/24 05:29 Sodium Bicarbonate 20 ml/Lidocaine HCl 270 mg/ Plegisol Cardioplegic Solution 1,033.5 mls @ 0 mls/hr PERFUSION .Q0M NR; Protocol Stop: 05/01/24 23:00 Tranexamic Acid 2,000 mg/ (Sodium Chloride) 100 mls @ 0 mls/hr IV .Q0M ONE; Protocol Stop: 05/01/24 05:01 Diltiazem HCl 125 mg/ Sodium (Chloride) 125 mls @ 5 mls/hr IV .Q24H LUIGI Papaverine HCl 360 mg/ Sodium (Chloride) 102 mls @ 0 mls/hr IV ONCE ONE Stop: 05/01/24 05:01 Insulin Human Regular 100 unit (/ Sodium Chloride) 100 mls @ 0 mls/hr IV .Q0M [facility]; Protocol Mannitol (Mannitol 25% 12.5 Gm/50 Ml Vial) 12.5 gm IV ONCE ONE Stop: 05/01/24 05:01 Mannitol (Mannitol 25% 12.5 Gm/50 Ml Vial) 12.5 gm IV ONCE ONE Stop: 05/01/24 05:01 Metoprolol Tartrate (Metoprolol Tartrate 25 Mg Tab) 25 mg PO BID [facility] Metoprolol Tartrate (Metoprolol Tartrate 12.5 Mg Tab) 12.5 mg PO ONCE ONE Stop: 05/01/24 05:01 Miscellaneous Information (Rx Info: Iv Contrast Was Given 1 Each Misc) 1 each MISCELLANE DAILY PRN PRN Reason: Per Protocol Stop: 04/30/24 20:02 Mupirocin (Mupirocin 2% Oint 22 Gm Tube) 1 applic NASAL BID [facility]; Protocol Last Admin: 04/30/24 08:32 Dose: 1 applic Naloxone HCl (Naloxone 0.4 Mg/Ml 1 Ml Vial) 0.2 mg IV Q2M PRN PRN Reason: Opioid Reversal Nitroglycerin (Nitroglycerin Oint 1 Inch/Gm Packet) 1 inch TOPICAL Q8HR LUIGI Last Admin: 04/30/24 08:07 Dose: 1 inch Nitroglycerin (Nitroglycerin Sl Tabs 0.4 Mg Tab) 0.4 mg SUBLINGUAL Q5M PRN PRN Reason: Chest Pain Last Admin: 04/30/24 08:39 Dose: 0.4 mg Nitroglycerin/Dextrose (Nitroglycerin-D5w Pmx 25 Mg/250 Ml Btl) 1 mg IV ONCE ONE Stop: 05/01/24 05:01 Phenylephrine HCl (Phenylephrine 10 Mg/Ml Vial) 0 mg IV ONCE ONE Stop: 05/01/24 05:01 Protamine Sulfate (Protamine Sulfate 10 Mg/Ml 25 Ml Vial) 250 mg IV ONCE ONE Stop: 05/01/24 05:01 Sodium Bicarbonate (Sodium Bicarb 8.4% 50 Ml Syr (1 Meq/Ml)) 50 ml IV ONCE ONE Stop: 05/01/24 05:01 Past medical history to include: Prior history of DVT and pulm embolism, GERD, hyperlipidemia, BPH, psoriasis, COVID and February 2021, osteoarthritis, Ribeiro's esophagus. Denies any history of CAD. 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 . Non-smoker. Maybe 1 drink on weekends. Occasionally Physical examination: VITAL SIGNS: 98.2, 56, 17, 132 x 66, 95% room air GENERAL: Up in a recliner EYES: Pupils equal. Conjunctiva monae l. HEENT: External appearance of nose and ears normal, oral cavity grossly normal. NECK: JVD not raised; masses not palpable. HEART: First and second heart sounds are normal; no edema. LUNGS: Respiratory rate normal; clear to auscultation. ABDOMEN: Soft, nontender, liver spleen not palpable, no masses palpable. PSYCH: Alert and oriented x3; mood and affect monae l. MUSCULOSKELETAL:No Clubbing/cyanosis;muscles-grossly intact INVESTIGATIONS, reviewed in the clinical context: LDL 136 April 29: White count 7.9 hemoglobin 13.1 platelets 236 potassium 4.2 creatinine 0.69 Troponin I 0.118, 0.863 EKG reported by the EMS: ST elevation. Carotid Doppler: No significant stenosis 2D echocardiogram: [place] hypokinetic. Moderately reduced global LV function EF 35 to 40%. Assessment plan: -Acute non-ST elevation myocardial infarction. Patient emergently taken to the cardiac [facility] -Postinfarct angina IV heparin. Nitropaste -Triple-vessel coronary artery disease per cardiac catheterization: Slow to respond symptomatic IV heparin Aspirin. Lopressor. Nitropaste. -IV heparin monitoring Follow PTT -Essential hypertension Lopressor 12.5 mg twice daily -Hyperlipidemia Lipitor 80 mg nightly Nitropaste. Scheduled for coronary bypass tomorrow discussed with patient and at the bedside. Past Medical History Past Medical History: Coronary Artery Disease (CAD), Chest Pain / Angina, Deep Vein Thrombosis (DVT), GERD/Reflux, Hyperlipidemia, Myocardial Infarction ([place]), Prostate Disorder, Pulmonary Embolus (PE), Skin Disorder Additional Past Medical History / Comment(s): psoriasis ( wrist and elbows both arms), had COVID 03/2021. 08/2019 blood clot in legs and lung . arthritis in hands, History of PE; Ribeiro's esophagitis History of Any Multi-Drug Resistant Organisms: None Reported Past Surgical History: Orthopedic Surgery Additional Past Surgical History / Comment(s): bl knee replacement, rt shoulder surgery after fx, EGD 07/26/21 most prostate removed no cancer Past Anesthesia/Blood Transfusion Reactions: Previous Problems w/ Anesthesia, Postoperative Nausea & Vomiting (PONV) Additional Past Anesthesia/Blood Transfusion Reaction / Comment(s): diff swallowing after EGD,ribeiro esophagus. no blood transfusions Past Psychological History: No Psychological Hx Reported Smoking Status: Never smoker Past Alcohol Use History: Rare Additional Past Alcohol Use History / Comment(s): 1 drink occasionally on the weekends Past Drug Use History: None Reported
[2024-04-30] MEDS: METOPROLOL TARTRATE 25 MG TAB PO SCH (20:27)
[2024-05-01] MEDS ORDERED: NITROGLYCERIN-D5W PMX 50 MG in DEXTROSE/WATER 1 250ML.BAG IV SCH (05:00)
[2024-05-01] MEDS ORDERED: PHENYLEPHRINE 40 MG in SODIUM CHLORIDE 0.9% 250 ML IV ONE (05:00)
[2024-05-01] MEDS ORDERED: PHENYLEPHRINE 10 MG/ML VIAL IV ONE (05:00)
[2024-05-01] MEDS ORDERED: NITROGLYCERIN-D5W PMX 25 MG/250 ML BTL IV ONE (05:00)
[2024-05-01] MEDS ORDERED: TRANEXAMIC ACID 2,000 MG in SODIUM CHLORIDE 0.9% 80 ML IV ONE (05:00)
[2024-05-01] MEDS ORDERED: ALBUMIN HUMAN 5% 500 ML in EMPTY BAG 1 BAG IVPB ONE ×6 (05:00)
[2024-05-01] MEDS ORDERED: NOREPINEPHRINE 4 MG in SODIUM CHLORIDE 0.9% 250 ML IV SCH (05:00)
[2024-05-01] MEDS ORDERED: CLEVIDIPINE BUTYRATE 25 MG in EMPTY BAG 1 BAG IV SCH (05:00)
[2024-05-01] MEDS ORDERED: CARDIOPLEGIC SOLN (K+ 16 MEQ/L 1,000 ML with SOD BICARB SYR 8.4% (1 MEQ/ML) 20 ML, LIDO... PERFUSION NR (05:00)
[2024-05-01] MEDS ORDERED: INSULIN REGULAR 100 UNIT in SODIUM CHLORIDE 0.9% 100 ML IV SCH (05:00)
[2024-05-01] MEDS ORDERED: HEPARIN SODIUM,PORCINE (1 ML) 5,000 UNIT in SODIUM CHLORIDE 0.9% 500 ML 500 ML IV ONE (05:00)
[2024-05-01] MEDS ORDERED: MAGNESIUM SULFATE 16.24 MEQ in EMPTY SYRINGE 1 SYR IV ONE (05:00)
[2024-05-01] MEDS ORDERED: SODIUM BICARB 8.4% 50 ML SYR (1 MEQ/ML) IV ONE (05:00)
[2024-05-01] MEDS ORDERED: MANNITOL 25% 12.5 GM/50 ML VIAL IV ONE ×2 (05:00)
[2024-05-01] MEDS ORDERED: CALCIUM CHLORIDE 100 MG/ML 10 ML SYRINGE IVP ONE (05:00)
[2024-05-01] MEDS ORDERED: HEPARIN SODIUM 1,000 UN/ML (10ML VL) IV ONE (05:00)
[2024-05-01] MEDS ORDERED: ALBUMIN HUMAN 25% 50 ML in EMPTY BAG 1 BAG IVPB ONE (05:00)
[2024-05-01] MEDS ORDERED: PROTAMINE SULFATE 250 MG in EMPTY BAG 1 BAG IV ONE (05:00)
[2024-05-01] MEDS ORDERED: PROTAMINE SULFATE 10 MG/ML 25 ML VIAL IV ONE ×2 (05:00→07:58)
[2024-05-01] MEDS ORDERED: PAPAVERINE 360 MG in SODIUM CHLORIDE 0.9% 90 ML IV ONE (05:00)
[2024-05-01] MEDS ORDERED: ceFAZolin 1,000 MG in SODIUM CHLORIDE 0.9% IRRIGATIO 1,000 ML IRRIGATION ONE (05:00)
[2024-05-01] MEDS: CHLORHEXIDINE GLUCONATE 15 ML CUP MUCOUS MEM ONE (05:38)
[2024-05-01] MEDS: ASPIRIN 325 MG TAB PO ONE (05:39)
[2024-05-01] MEDS: ATORVASTATIN 10 MG TAB PO ONE (05:39)
[2024-05-01] MEDS: METOPROLOL TARTRATE 12.5 MG TAB PO ONE (05:39)
[2024-05-01] MEDS ORDERED: VECURONIUM 10 MG VIAL IV ONE (07:58)
[2024-05-01] MEDS ORDERED: ePHEDrine 50 MG/ML 1 ML VIAL ONE (07:58)
[2024-05-01] MEDS ORDERED: MIDAZOLAM HCL 10 MG/10 ML VIAL ONE (07:58)
[2024-05-01] MEDS ORDERED: WATER FOR INJECTION, STERILE 10 ML VIAL IV ONE (07:58)
[2024-05-01] MEDS ORDERED: PROPOFOL 10 MG/ML 20 ML VIAL IV ONE (07:58)
[2024-05-01] MEDS ORDERED: ALBUMIN HUMAN 5% (25gm) 500 ML VIAL IVPB ONE (07:58)
[2024-05-01] MEDS ORDERED: HEPARIN SODIUM,PORCINE 10,000 UNIT/ML 1 ML VIAL ONE (07:58)
[2024-05-01] MEDS ORDERED: fentaNYL (PF) 50 MCG/ML 50 ML VIAL ONE (07:58)
[2024-05-01 08:32] LABS: ABG Glucose Whole Blood 94 mg/dL (75-99); ABG HCO3 24 mmol/L (21-25); ABG Hematocrit 37 % (34.0-46.0); ABG Lactic Acid Whole Blood 0.8 mmol/L (0.5-1.6); ABG Oxygen Saturation >99.4 % (94-97); ABG PCO2 38 mmHg (35-45); ABG PH 7.42 (7.35-7.45); ABG PO2 418 mmHg (83-108); ABG Potassium Whole Blood 4.2 mmol/L (3.4-4.5); ABG Sodium Whole Blood 137 mmol/L (135-146); Allen Test Performed? Yes
[2024-05-01] MEDS: DILTIAZEM 125 MG in SODIUM CHLORIDE 0.9% 100 ML IV SCH ×2 (09:34→17:00)
[2024-05-01] MEDS: SODIUM CHLORIDE 0.9% 500 ML 500 ML with HEPARIN SODIUM,PORCINE (1 ML) 5,000 UNIT IV ONE (09:34)
[2024-05-01] MEDS: PAPAVERINE 360 MG in SODIUM CHLORIDE 0.9% 90 ML IV ONE (09:34)
[2024-05-01] MEDS: ceFAZolin 1,000 MG in SODIUM CHLORIDE 0.9% 1,000 ML IRRIGATION ONE (09:35)
[2024-05-01 10:22] LABS: ABG Base Excess 0.2 mmol/L; ABG Glucose Whole Blood 104 mg/dL (75-99); ABG HCO3 24 mmol/L (21-25); ABG Hematocrit 34 % (34.0-46.0); ABG Ionized Calcium 4.8 mg/dL (4.5-5.3); ABG Lactic Acid Whole Blood 0.8 mmol/L (0.5-1.6); ABG PCO2 36 mmHg (35-45); ABG PH 7.43 (7.35-7.45); ABG PO2 226 mmHg (83-108); ABG Potassium Whole Blood 4.4 mmol/L (3.4-4.5); ABG Sodium Whole Blood 135 mmol/L (135-146); ABG TCO2 22 mmol/L (19-24); Allen Test Performed? Yes
[2024-05-01 11:20] LABS: ABG Base Excess 0.4 mmol/L; ABG Glucose Whole Blood 100 mg/dL (75-99); ABG HCO3 24 mmol/L (21-25); ABG Hematocrit 32 % (34.0-46.0); ABG Ionized Calcium 4.7 mg/dL (4.5-5.3); ABG Oxygen Saturation 99.2 % (94-97); ABG PCO2 34 mmHg (35-45); ABG PH 7.46 (7.35-7.45); ABG PO2 236 mmHg (83-108); ABG Potassium Whole Blood 4.2 mmol/L (3.4-4.5); ABG Sodium Whole Blood 136 mmol/L (135-146); ABG TCO2 22 mmol/L (19-24); Allen Test Performed? Yes
[2024-05-01] MEDS ORDERED: ONDANSETRON 4 MG/2 ML VIAL IVP PRN (13:22)
[2024-05-01] MEDS ORDERED: IPRATROPIUM-ALBUTEROL 3 ML NEB INHALATION PRN (13:22)
[2024-05-01] MEDS ORDERED: traMADol 50 MG TAB PO PRN (13:22)
[2024-05-01] MEDS ORDERED: Potassium Replacement Protocol 1 EACH MISC MISCELLANE PRN ×2 (13:22→14:47)
[2024-05-01] MEDS ORDERED: Magnesium Replacement Protocol 1 EACH MISC MISCELLANE PRN (13:22)
[2024-05-01] MEDS ORDERED: hydrALAZINE HCL 20 MG/ML 1 ML VIAL IVP PRN (13:22)
[2024-05-01] MEDS ORDERED: BENZOCAINE/MENTHOL LOZENG 1 EACH LOZENGE MUCOUS MEM PRN (13:22)
[2024-05-01] MEDS ORDERED: DEXTROSE 50% SYRINGE 50 ML IVP PRN ×2 (13:22)
--- NOTE | 2024-05-01 13:33 | P.OP ---
Date of Procedure: 05/01/24 Preoperative Diagnosis: Coronary artery disease, unstable angina, subendocardial infarction Postoperative Diagnosis: Same Procedure(s) Performed: Off-pump CABG x 4 with sequential GERARD to the proximal and mid LAD, saphenous vein graft to right coronary artery, left radial artery graft to first obtuse marginal coronary artery. Occlusion of left atrial appendage with 35 mm AtriCure clip. Left greater saphenous vein harvest from ankle to knee using endovascular harvest technique. [place] of the left radial artery using endovascular harvest technique. Implants: 35 mm AtriCure clip Anesthesia: JUAN Surgeon: Aime Lawson Laceworker #1: Dylon Hernandez Estimated Blood Loss (ml): 500 IV fluids (ml): 2,000 Urine output (ml): 500 Pathology: none sent Condition: stable Disposition: ICU Indications for Procedure: 68-year-old male with known history of coronary artery disease presented with severe chest pain and elevated troponins. He was treated medically with resolution of his chest pain. He underwent cardiac catheterization demonstrating left main and three-vessel coronary artery disease. He was recommended to undergo urgent bypass surgery. He continued to have intermittent episodes of anginal symptomatology. He was boarded for the next available time slot. Operative Findings: Patient had diffuse spider veins. Ultrasound had indicated presence of varicose veins particularly in the thighs. The ankle veins looked okay. Left greater saphenous vein harvest from the left lower extremity was performed. There were 2 segments of the vein that were free of varices. Together these achieved an adequate length to graft the right coronary artery. Left radial artery and left internal mammary artery were excellent conduits. Distal targets were reasonable with excellent size and good graftable areas without diffuse wall disease. Left ventricular ejection fraction improved from about 35% to over 50% with normalization of the anterior apical area following revascularization on no inotropic support. Description of Procedure: Patient was brought to the operating room and placed supine on the operating table. General anesthesia was induced. BRANDY probe was placed. Standard Ruiz catheter could not be placed but we were able to place a 16 coud tip catheter. The anterior torso bilateral lower extremities and left upper extremity were sterilely prepped and draped in standard fashion. Saphenous vein was harvested from the left lower extremity extending from the knee down to the ankle. Findings as noted above. Endovascular vein harvest technique was used. Simultaneous harvest of the left radial artery was performed again using endovascular harvest technique. On completion of the harvest the conduits were prepared on the back table. The incisions were closed with layers of Vicryl suture and the left arm was tucked at the side. Simultaneous sternotomy was performed. The left hemisternum was retracted upwards. The left internal mammary artery was harvested on a vascularized pedicle and left intact on its origin from the subclavian. It was an excellent conduit. The left pleural space was drained with a 32 [place] chest tube. Standard sternal retractor was placed. The pericardium was opened in the midline and the heart exposed with pericardial sutures. The patient was systemically heparinized. 35 mm AtriCure clip was applied to the base of the left atrial appendage. Left internal mammary artery was tunneled into the chest. Was appropriately prepared for sequential grafting of the left anterior descending coronary artery. Suction stabilization was used during distal anastomosis. We began with a [id number] anastomosis of the GERARD to the proximal segment of the LAD. This portion of the vessel was soft although there was an area of densely calcified plaque distally at the level of the second diagonal branch. The LAD was opened proximally and blood flow controlled with a 2 mm flow-through. With a 2.5 mm vessel. [place]-wdda anastomosis between the GERARD and the LAD was performed with running 8-0 Prolene suture. On completion of the anastomosis, flow through was removed effectively probing the proximal distal portion of the anastomosis. Suture was tied with good result and hemostasis. Inflow was opened and good augmentation of blood flow at the tip of the GERARD was noted. Bulldog clamp was moved from proximal to distal. The mid LAD beyond the second diagonal was now stabilized. It was opened and blood flow controlled with a 2 mm flow-through. It was a 2 to 2.5 mm vessel. End-to-side anastomosis between the GERARD to the LAD was performed with running 8-0 Prolene suture. On completion the anastomosis the flow through was removed effectively probing the proximal distal portion of the anastomosis. Suture was tied with good result and hemostasis. LENNOX pedicle was tacked surrounding epicardium with 6-0 silk sutures near both anastomoses. Next the inferior wall of the heart was exposed. Right coronary artery was identified and felt to be an appropriate target distally just prior to the bifurcation. Length of the graft was measured. Saphenous vein was brought up on the table and examined. There were 2 segments of the vein did not have any varices or valves. The remaining portion of the vein was cut out and these 2 pieces were sewn together with running 7-0 Prolene suture. We now stabilized the distal right coronary artery and opened it. Blood flow was controlled with 2 mm flow-through. End-to-side anastomosis between the saphenous vein and right coronary artery was performed with running 7-0 Prolene suture. On completion the anastomosis the flow through was removed effectively probing the proximal distal portion of the anastomosis. Suture was tied with good result and hemostasis. Good backbleeding was noted into the vein graft controlled with a bulldog clamp. The vein was brought up to the ascending aorta and noted to be of adequate length. Heartstring device was deployed in the proximal ascending aorta in the midline. Proximal anastomosis was constructed with 5-0 Prolene suture. On completion of the anastomosis the vein graft was de-aired with needle holes in the inflow open. Graft was noted to be of adequate length and to lay well without any bleeding from its anastomosis. Next the lateral wall of the heart was exposed. First obtuse marginal coronary was stabilized. It was opened and blood flow controlled with a 2 mm flow-through. It was a 2 to 2.5 mm vessel. End-to-side anastomosis between the left radial artery and the first obtuse marginal was performed with running 7-0 Prolene suture. On completion of the anastomosis the flow through was removed effective probing the proximal distal portion of the anastomosis. Suture was tied with good result and hemostasis. Good backbleeding was noted in the radial artery controlled with a bulldog clamp. The radial was brought beneath the GERARD and the heart was lowered in anatomic position. The radial was cut to appropriate length to reach the mid ascending aorta. Heartstring device was deployed in the mid ascending aorta just to the left of midline. Proximal anastomosis was constructed with running 5-0 Prolene suture. On completion anastomosis the radial artery was de-aired by needle holes and the inflow open. Graft was noted to lay well with more than adequate length. All anastomoses were hemostatic. Heparin was reversed with protamine. Good hemostasis was obtained throughout. Mediastinum was drained with a 36 [place] chest tube. Chest was irrigated with antibiotic solution and after assuring good hemostasis, sternum was closed with 8 sternal wires. Fascia was closed with 0 Ethibond. Subcutaneous and subcuti cular layers were closed with layers of Vicryl suture. Dry sterile dressings were applied and the patient was transferred to CVICU in stable condition. BRANDY on completion of the procedure showed normalization of left ventricular function. No inotropic support was required and no blood transfusions were administered.
--- NOTE | 2024-05-01 13:49 | P.ANPRN ---
Procedure Note - Anesthesia - Invasive Line Right Arterial Line Time Out Performed: Yes Date of Procedure: 05/01/24 Time of Procedure: 07:10 Location of Patient: PreOp Preparation: Sterile Prep, Sterile Dressing Arterial Line Location: Radial Ultrasound Used: No Needle Guage: 20 Image Stored and Saved: No Narrative: Invasive line placement per sterile protocol utilized by PAID SEARCH MANAGER. Right Central Line Time Out Performed: Yes Date of Procedure: 05/01/24 Time of Procedure: 07:20 Location of Patient: PreOp Preparation: Sterile Prep, Sterile Dressing Central Line Location: Internal Jugular Ultrasound Used: Yes Purpose - Visualization and Identification of Vasculature: Yes Needle Guage: 18 Image Stored and Saved: Yes Narrative: Invasive line placement per sterile protocol utilized. Seldinger technique. U/S for needle visualization and wire confirmation. Right [place] Lilo Time Out Performed: Yes Date of Procedure: 05/01/24 Location of Patient: PreOp Preparation: Sterile Prep, Sterile Dressing [place] Lilo Line Location: Internal Jugular Ultrasound Used: No Image Stored and Saved: No Narrative: SWAN had ports flushed and balloon tested. Advanced until PA waveform obtained. Balloon deflated. Line secured at 43 cm.
[2024-05-01] MEDS: SODIUM CHLORIDE 0.9% 1,000 ML IV SCH (13:51)
[2024-05-01] MEDS: NITROGLYCERIN-D5W PMX 50 MG in DEXTROSE/WATER 1 250ML.BAG IV SCH (13:52)
--- NOTE | 2024-05-01 13:52 | P.ANPRN ---
Procedure Note - Anesthesia - BRANDY Intraop Pre Bypass BRANDY Intraop - Anesthesia Indication: CAD Date of Procedure: 05/01/24 Pre-operative Diagnosis: CAD Post-operative Diagnosis: Same Surgeon: Aime Lawson Left Ventricle: EF 40 % w/ apical hypokinesis Left Ventricle Hypertrophy: No R. Ventricle Function: Normal Anatomy: Trileaflet Aortic Stenosis: None Aortic Regurgitation: None Mitral Stenosis: None Mitral Regurgitation: None Tricuspid Stenosis: None Tricuspid Regurgitation: None Pulmonic Stenosis: None Pulmonic Regurgitation: None R. Atrial Dilation: No R. Atrial PFO: No L. Atrial Dilation: No Aortic Dissection: No Aortic Calcification: Mild Plural Effusion: None - BRANDY Intraop Post Bypass BRANDY Intraop Post Bypass Procedure Performed: s/p CABG x 4 Left Ventricle: EF 55 Ejection Fraction: Normal Regional Wall Motion Abnormalities: None R. Ventricle Function: Normal Aortic Valve: Unchanged Mitral Valve: Mild MR Tricuspid: Unchanged Pulmonic: Unchanged Aortic Dissection: No
[2024-05-01 13:53] LABS: Glucose,Whole Blood 98 mg/dL (70-110)
[2024-05-01] MEDS: CLEVIDIPINE BUTYRATE 25 MG in EMPTY BAG 1 BAG IV SCH (14:00)
[2024-05-01 14:01] LABS: Basophils % (A) 0 %; Eosinophils # (A) 0.1 k/uL (0-0.7); Eosinophils % (A) 1 %; HCT 31.3 % (39.0-53.0); HGB 10.8 gm/dL (13.0-17.5); Lymphocytes # (A) 1.2 k/uL (1.0-4.8); Lymphocytes % (A) 9 %; MCH 29.4 pg (25.0-35.0); MCHC 34.3 g/dL (31.0-37.0); MCV 85.7 fL (80.0-100.0); Mean Platelet Volume 9.4; Monocytes # (A) 0.4 k/uL (0-1.0); Monocytes % (A) 3 %; Neutrophils % (A) 87 %; Platelet Count 133 k/uL (150-450); RBC 3.66 m/uL (4.30-5.90); RDW 12.9 % (11.5-15.5); WBC 12.6 k/uL (3.8-10.6)
[2024-05-01 14:07] LABS: Ionized Calcium 4.6 mg/dL (4.5-5.3)
[2024-05-01 14:10] LABS: INR 1.1 (<1.2); Partial Thromboplastin Time 26.9 sec (22.0-30.0); Prothrombin Time 11.9 sec (10.0-12.5)
[2024-05-01 14:21] LABS: ABG Base Excess -0.1 mmol/L; ABG HCO3 24 mmol/L (21-25); ABG PCO2 36 mmHg (35-45); ABG PH 7.44 (7.35-7.45); ABG PO2 265 mmHg (83-108); ABG TCO2 25 mmol/L (19-24)
[2024-05-01 14:23] LABS: Allen Test Performed? no
[2024-05-01 14:26] LABS: ALT 16 U/L (4-49); AST 27 U/L (17-59); African American GFR (CKD) >90 (>60 ml/min/1.73 sqM); Albumin 2.6 g/dL (3.5-5.0); Alkaline Phosphatase 47 U/L (38-126); Anion Gap 2 mmol/L; Blood Urea Nitrogen 12 mg/dL (9-20); Calcium 8.1 mg/dL (8.4-10.2); Carbon Dioxide 22 mmol/L (22-30); Chloride 110 mmol/L (98-107); Glucose 90 mg/dL (74-99); Magnesium 1.8 mg/dL (1.6-2.3); Non-African American GFR(CKD) >90 (>60 ml/min/1.73 sqM); Potassium 3.6 mmol/L (3.5-5.1); Sodium 134 mmol/L (137-145); Total Bilirubin 0.6 mg/dL (0.2-1.3); Total Protein 4.3 g/dL (6.3-8.2)
--- NOTE | 2024-05-01 14:52 | XR ---
EXAMINATION TYPE: XR chest 1V portable DATE OF EXAM: 05/01/2024 2:39 PM CLINICAL INDICATION: Male, 68 years old with history of Post Operative Cardiac Surgery; [facility]GED WITH [facility] COMPARISON: Chest radiographs from 04/29/2024 TECHNIQUE: XR chest 1V portable Frontal view of the chest. FINDINGS: Lungs/Pleura: Scattered airspace opacities most pronounced left midlung. There is no evidence of pleu ral effusion, focal consolidation, or pneumothorax. Pulmonary vascularity: Unremarkable. Heart/mediastinum: Cardiomediastinal silhouette is unremarkable. Left atrial appendage occlusion alexa ce is present. Musculoskeletal: No acute osseous pathology. Other findings: None Lines/Tubes: Endotracheal tube with distal tip 6.8 cm above the naseem. Nasogastric tube with its distal tip and side-port projecting under the diaphragm. There is a [place]-Lilo catheter with tip projecting over the spine. Left thoracotomy tube is present without evidence of pneumothorax. Drainage tubes with tips projecting over the mediastinum. IMPRESSION: * Left midlung airspace opacities correlate for atelectasis. * Support tubes in appropriate position. [facility], Workstation: [id number], 05/01/2024 2:49 PM
[2024-05-01 15:09] LABS: Glucose,Whole Blood 129 mg/dL (70-110)
[2024-05-01] MEDS: INSULIN REGULAR 100 UNIT in SODIUM CHLORIDE 0.9% 100 ML IV SCH (15:16)
[2024-05-01] MEDS: DEXMEDETOMIDINE/0.9% NACL(PMX) 400 MCG in EMPTY BAG 1 BAG IV SCH (15:24)
--- NOTE | 2024-05-01 15:24 | P.PN ---
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 He presented here to the emergency room yesterday with ch est pain. Was found to have a transient ST segment elevation myocardial infarction and had undergone cardiac catheterization last evening that revealed calcified coronary arteries, severe stenosis in the proximal and mid LAD, severe stenosis in the proximal left circumflex and obtuse marginal branch 1 and 2, moderate to significant disease in the mid RCA. He is recommended coronary artery bypass grafting. He is currently on a heparin drip. The plan is for continue to hold his Eliquis and surgery on Wednesday, May 01, 2024. He is seen today in consultation. He is currently sitting up in a chair at the bedside. Awake and alert in no acute distress. Maintaining O2 saturations in the 90s on room air. He is able to pull 3 L on the incentive spirometer. Chest x-ray reveals no acute pulmonary process. CT scan of the chest reveals air lung sparrow. No pulmonary nodule or mass detected. Thoracic aorta is of normal caliber. Cardiogram does revealed impaired left ventricular systolic function with an ejection fraction of 35 to 40%. Apical hypokinesia. White count 7.9. Hemoglobin 13.1. Platelets 236. Sodium 136. Potassium 4.2. Bicarb 25. BUN 21. Creatinine 0.69. Troponin 0.118, 0.863. Hepatitis screen negative. Carotid Dopplers revealed no hemodynamically significant stenosis bilaterally. Patient was evaluated today on 04/30/2024, patient is doing well, sitting at the bedside chair, not in any distress, he is a bit anxious about his surgery which is expected. Patient is considered low risk for surgery, he is hemodynamically stable, in sinus rhythm, on room air, and doing extremely well with incentive spirometry. Patient was seen today on 05/01/2024, patient is now status postOff-pump CABG x 4 with sequential GERARD to the proximal and mid LAD, saphenous vein graft to right coronary artery, left radial artery graft to first obtuse marginal coronary artery. Occlusion of left atrial appendage with 35 mm AtriCure clip. Left greater saphenous vein harvest from ankle to knee using endovascular harvest technique. [place] of the left radial artery using endovascular harvest technique. Postoperative day #0. I saw the patient in the ICU, he is intubated mechanically ventilated, he is now on assist-control rate of 16 tidal volume 550 FiO2 60% he was on 100% earlier and ABG was done on 100% PEEP of 5 ABG showed a pO2 of 265 pCO2 36 pH 7.44. Patient is on multiple drips including Cleviprex at 4 mg/h, nitroglycerin 5 mg/min, and propofol at 50 mcg/kg/min. Hemodynamics are cardiac out of 6.6 cardiac index of 3.1. Pulmonary artery pressure 42/25. C hest x-ray showed postoperative changes and postoperative atelectasis. Endotracheal tube was noted to be about 6 cm above the naseem. Nasogastric tube is under the diaphragm. Tip of the [place]-Lilo catheter is in proper position. Left thoracotomy tube present, no pneumothorax. Mediastinal tube is in proper position Objective - Vital Signs Vital signs: Vital Signs Temp 93.7 F L 05/01/24 13:40 Pulse 74 05/01/24 13:40 Resp 16 05/01/24 13:40 BP 132/78 05/01/24 06:00 Pulse Ox 100 05/01/24 13:40 FiO2 45 05/01/24 15:15 Intake & Output 04/30/24 05/01/24 05/01/24 18:59 06:59 18:59 Intake Total 470.00 414.326 4 Output Total 500 1200 2100 Balance -30.00 -785.674 -2096 Weight 90.6 kg Intake: IV 220 220 4 Sodium Chloride 0.9% 1, 220 220 0 000 ml @ 20 mls/hr IV . Q24H LUIGI Rx#:[id number] Intake, IV Titration 250.00 194.326 Amount Heparin Sod,Pork in 0.45% 250.00 194.326 NaCl 25,000 unit In 0.45 % NaCl 1 250ml.bag @ 10. 254 UNITS/KG/HR 10 mls/hr IV .Q24H LUIGI Rx#: [id number] Output: Urine 500 1200 1500 Estimated Blood Loss 600 Other: Voiding Method Urinal Urinal ABP, PAP, CO, CI - Last Documented Arterial Blood Pressure 125/62 Pulmonary Artery Pressure 34/16 Cardiac Output 6.6 Cardiac Index 3.1 - Exam GENERAL EXAM: 68-year-old white male in no distress intubated sedated mechanically ventilated HEAD: Normocephalic. EYES: Normal reaction of pupils, equal size. NOSE: Clear with pink turbinates. THROAT: No erythema or exudates. NECK: No masses, no JVD. CHEST: No chest wall deformity. LUNGS: Diminished breath sounds minimal crackles at the bases no rhonchi no wheezes CVS: S1 and S2 normal with no audible murmur, regular rhythm. Positive pericardial rub ABDOMEN: No hepatosplenomegaly, normal bowel sounds, no guarding or rigidity. SKIN: No rashes CENTRAL NERVOUS SYSTEM: Could not assess patient is sedated on propofol. EXTREMITIES: Wrapped and compression stockings noted. - Labs CBC & Chem 7: 05/01/24 13:52 05/01/24 13:52 Labs: Abnormal Lab Results - Last 24 Hours (Table) 04/29/24 05/01/24 05/01/24 Range/Units 14:45 08:40 10:27 WBC (3.8-10.6) k/uL RBC (4.30-5.90) m/uL Hgb (13.0-17.5) gm/dL Hct (39.0-53.0) % Plt Count (150-450) k/uL Neutrophils # (1.3-7.7) k/uL ABG pO2 418 H 226 H (83-108) mmHg ABG Total CO2 (19-24) mmol/L ABG O2 Saturation >99.4 H 99.0 H (94-97) % ABG Glucose 104 H (75-99) mg/dL Hemoglobin 12.1 L 11.1 L (13.0-17.5) gm/dL Sodium (137-145) mmol/L Chloride (98-107) mmol/L Creatinine (0.66-1.25) mg/dL POC Glucose (mg/dL) (70-110) mg/dL Calcium (8.4-10.2) mg/dL Total Protein (6.3-8.2) g/dL Albumin (3.5-5.0) g/dL Arterial Blood Glucose 104 H (75-99) mg/dL Crossmatch See Detail 05/01/24 05/01/24 05/01/24 Range/Units 13:52 13:52 14:19 WBC 12.6 H (3.8-10.6) k/uL RBC 3.66 L (4.30-5.90) m/uL Hgb 10.8 L (13.0-17.5) gm/dL Hct 31.3 L (39.0-53.0) % Plt Count 133 L (150-450) k/uL Neutrophils # 11.0 H (1.3-7.7) k/uL ABG pO2 265 H (83-108) mmHg ABG Total CO2 25 H (19-24) mmol/L ABG O2 Saturation 100.0 H (94-97) % ABG Glucose (75-99) mg/dL Hemoglobin 11.4 L (13.0-17.5) gm/dL Sodium 134 L (137-145) mmol/L Chloride 110 H (98-107) mmol/L Creatinine 0.59 L (0.66-1.25) mg/dL POC Glucose (mg/dL) (70-110) mg/dL Calcium 8.1 L (8.4-10.2) mg/dL Total Protein 4.3 L (6.3-8.2) g/dL Albumin 2.6 L (3.5-5.0) g/dL Arterial Blood Glucose (75-99) mg/dL Crossmatch 05/01/24 Range/Units 15:07 WBC (3.8-10.6) k/uL RBC (4.30-5.90) m/uL Hgb (13.0-17.5) gm/dL Hct (39.0-53.0) % Plt Count (150-450) k/uL Neutrophils # (1.3-7.7) k/uL ABG pO2 (83-108) mmHg ABG Total CO2 (19-24) mmol/L ABG O2 Saturation (94-97) % ABG Glucose (75-99) mg/dL Hemoglobin (13.0-17.5) gm/dL Sodium (137-145) mmol/L Chloride (98-107) mmol/L Creatinine (0.66-1.25) mg/dL POC Glucose (mg/dL) 129 H (70-110) mg/dL Calcium (8.4-10.2) mg/dL Total Protein (6.3-8.2) g/dL Albumin (3.5-5.0) g/dL Arterial Blood Glucose (75-99) mg/dL Crossmatch Assessment and Plan Assessment: Impression status postOff-pump CABG x 4 with sequential GERARD to the proximal and mid LAD, saphenous vein graft to right coronary artery, left radial artery graft to first obtuse marginal coronary artery. Occlusion of left atrial appendage with 35 mm AtriCure clip. Left greater saphenous vein harvest from ankle to knee using endovascular harvest technique. [place] of the left radial artery using endovascular harvest technique. Postoperative day #[address] segment elevation myocardial infarction severe triple-vessel coronary artery disease. 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 Continue cardiac meds, Eliquis to be started as soon as possible Continue present supportive care measures, Will continue to follow Critical care time over 30- Time with Patient: Greater than 30
[2024-05-01] MEDS: traMADol 50 MG TAB PO PRN (15:29)
[2024-05-01] MEDS: MAGNESIUM SULFATE-D5W PMX 1 GM in DEXTROSE/WATER 1 100ML.BAG IVPB ONE (15:30)
[2024-05-01] MEDS: POTASSIUM BICARBONATE/CIT AC 20 MEQ TABLET.EFF NG-TUBE SCH (15:30)
[2024-05-01 16:02] LABS: Glucose,Whole Blood 146 mg/dL (70-110)
[2024-05-01] MEDS: HYDROmorphone 0.5 MG/0.5 ML SYRINGE IVP PRN (16:29)
[2024-05-01] MEDS: IPRATROPIUM-ALBUTEROL 3 ML NEB INHALATION SCH ×2 (16:35→20:05)
[2024-05-01 16:50] LABS: ABG HCO3 23 mmol/L (21-25); ABG PCO2 37 mmHg (35-45); ABG PH 7.41 (7.35-7.45); ABG PO2 66 mmHg (83-108); ABG TCO2 25 mmol/L (19-24)
[2024-05-01 16:51] LABS: Glucose,Whole Blood 146 mg/dL (70-110)
[2024-05-01 16:52] LABS: Allen Test Performed? no
[2024-05-01 17:04] LABS: Basophils % (A) 0 %; Eosinophils # (A) 0.1 k/uL (0-0.7); Eosinophils % (A) 0 %; HCT 37.2 % (39.0-53.0); HGB 12.1 gm/dL (13.0-17.5); Lymphocytes % (A) 5 %; MCH 28.4 pg (25.0-35.0); MCHC 32.4 g/dL (31.0-37.0); MCV 87.7 fL (80.0-100.0); Mean Platelet Volume 7.9; Monocytes # (A) 0.8 k/uL (0-1.0); Monocytes % (A) 5 %; Neutrophils # (A) 16.4 k/uL (1.3-7.7); Neutrophils % (A) 89 %; Platelet Count 206 k/uL (150-450); RBC 4.24 m/uL (4.30-5.90); RDW 12.7 % (11.5-15.5); WBC 18.3 k/uL (3.8-10.6)
[2024-05-01] MEDS: HEPARIN SODIUM,PORCINE 5,000 UNIT/ML 1 ML VIAL SQ SCH (17:10)
[2024-05-01 18:08] LABS: Glucose,Whole Blood 136 mg/dL (70-110)
[2024-05-01] MEDS: ACETAMINOPHEN IV (For NPO) 1,000 MG in EMPTY BAG 1 BAG IVPB SCH (18:10)
[2024-05-01 19:02] LABS: Glucose,Whole Blood 125 mg/dL (70-110)
--- NOTE | 2024-05-01 20:03 | P.PN ---
Progress Note - Text Progress Note Date: 05/01/24 Chief Complaint: Chest pressure Pleasant 68-year-old patient follows with Dr. Bolivar Vizcaino. No prior history of any coronary artery disease. Patient started off at home with having right- sided chest pressure. Lasted about 20 minutes. Got a bit better then again got worse. EMS was called. Starting having more chest pressure. Weak and tired. When EMS arrived they did EKG patient was found to have ST elevation [place]. Was given nitro. Still having chest pain when patient got into the ER. Patient then taken to the [facility] yesterday evening by Dr. Turcios from cardiology. Was found to have calcified coronary arteries, severe stenosis of the proximal mid LAD. And also severe stenosis of proximal left circumflex obtuse marginal branch 1 and 2. And significant disease of the RCA. Patient moved to the ICU. Cardiothoracic surgery was consulted. at the bedside. April 30: ICU. Had right upper chest pressure this morning. Nitropaste placed. Plan for coronary bypass tomorrow. On IV heparin. at the bedside. May 01: ICU. Patient's status post coronary bypass earlier today. On the ventilator intubated. FiO2 60 PEEP of 5. Drips include IV propofol and nitroglycerin. 2 chest tubes. Active Medications Acetaminophen (Acetaminophen Tab 325 Mg Tab) 650 mg PO Q4HR PRN PRN Reason: Fever And/ Or Mild Pain (1-3) Albuterol/Ipratropium (Ipratropium-Albuterol 3 Ml Neb) 3 ml INHALATION RT-Q2H PRN PRN Reason: Shortness Of Breath Or Wheezing Albuterol/Ipratropium (Ipratropium-Albuterol 3 Ml Neb) 3 ml INHALATION RT-QID [facility] Aspirin (Aspirin 325 Mg Tab) 325 mg PO DAILY [facility] Atorvastatin Calcium (Atorvastatin 40 Mg Tab) 40 mg PO DAILY [facility] Benzocaine/Menthol (Benzocaine/Menthol Lozeng 1 Each Lozenge) 1 each MUCOUS MEM Q2H PRN PRN Reason: Sore Throat Bisacodyl (Bisacodyl 10 Mg Supp) 10 mg RECTAL DAILY PRN PRN Reason: Constipation Clopidogrel Bisulfate (Clopidogrel 75 Mg Tab) 75 mg PO DAILY [facility] Dextrose/Water (Dextrose 50% Syringe 50 Ml) 25 ml IVP PER PROTOCOL PRN; Protocol PRN Reason: Hypoglycemia Dextrose/Water (Dextrose 50% Syringe 50 Ml) 50 ml IVP PER PROTOCOL PRN; Protocol PRN Reason: Hypoglycemia Heparin Sodium (Porcine) (Heparin Sodium,Porcine 5,000 Unit/Ml 1 Ml Vial) 5,000 unit SQ Q8HR [facility] Last Admin: 05/01/24 17:10 Dose: 5,000 unit Hydralazine HCl (Hydralazine Hcl 20 Mg/Ml 1 Ml Vial) 10 mg IVP Q1H PRN PRN Reason: Blood Pressure - High Hydromorphone HCl (Hydromorphone 0.5 Mg/0.5 Ml Syringe) 0.5 mg IVP Q3HR PRN PRN Reason: Breakthrough Pain Last Admin: 05/01/24 16:29 Dose: 0.5 mg Clevidipine 25 mg/ IV Solution 50 mls @ 2 mls/hr IV .Q24H [facility]; Protocol Last Admin: 05/01/24 19:50 Dose: 2 mg/hr, 4 mls/hr Diltiazem HCl 125 mg/ Sodium (Chloride) 125 mls @ 5 mls/hr IV .Q24H [facility] Last Admin: 05/01/24 17:00 Dose: 5 mg/hr, 5 mls/hr Amiodarone HCl 150 mg/ (Dextrose/Water) 103 mls @ 618 mls/hr IV .Q10M PRN; Protocol PRN Reason: A.FIB/FLUTTER Amiodarone HCl 360 mg/ (Dextrose/Water) 207.2 mls @ 34.533 mls/hr IV .Q6H PRN; Protocol PRN Reason: A.FIB/FLUTTER Amiodarone HCl 450 mg/ (Dextrose/Water) 250 mls @ 16.667 mls/hr IV .Q15H PRN; Protocol PRN Reason: A.FIB/FLUTTER Albumin Human 250 ml/ IV (Solution) 250 mls @ 250 mls/hr IVPB Q1HR PRN; Pr otocol PRN Reason: For Volume Stop: 05/03/24 13:21 Acetaminophen 1,000 mg/ IV (Solution) 100 mls @ 400 mls/hr IVPB Q6HR [facility] Stop: 05/02/24 12:14 Last Admin: 05/01/24 18:10 Dose: 400 mls/hr Cefazolin Sodium 2 gm/ Sodium (Chloride) 50 mls @ 100 mls/hr IVPB Q8HR [facility]; Protocol Stop: 05/02/24 08:29 Last Admin: 05/01/24 16:28 Dose: 100 mls/hr Nitroglycerin/Dextrose 50 mg/ (IV Solution) 250 mls @ 1.5 mls/hr IV .Q24H [facility] Last Admin: 05/01/24 13:52 Dose: 5 mcg/min, 1.5 mls/hr Propofol 1,000 mg/ IV Solution 100 mls @ 0 mls/hr IV .Q0M [facility]; Protocol Last Titration: 05/01/24 16:20 Dose: 0 mcg/kg/min, 0 mls/hr Dexmedetomidine HCl 400 mcg/ (IV Solution) 100 mls @ 0 mls/hr IV .Q0M [facility]; Protocol Stop: 05/02/24 13:24 Last Titration: 05/01/24 18:00 Dose: 0 mcg/kg/hr, 0 mls/hr Insulin Human Regular 100 unit (/ Sodium Chloride) 101 mls @ 0 mls/hr IV .Q0M [facility]; Protocol Last Titration: 05/01/24 18:20 Dose: 1.5 units/hr, 1.515 mls/hr Sodium Chloride (Saline 0.9%) 1,000 mls @ 50 mls/hr IV .Q20H [facility] Last Admin: 05/01/24 13:51 Dose: 50 mls/hr Magnesium Hydroxide (Magnesium Hydroxide 2,400 Mg/30 Ml Cup) 2,400 mg PO BID PRN PRN Reason: Constipation Metoclopramide HCl (Metoclopramide 5 Mg/Ml 2 Ml Vial) 10 mg IVP Q4H PRN PRN Reason: Nausea And Vomiting Metoprolol Tartrate (Metoprolol Tartrate 12.5 Mg Tab) 12.5 mg PO BID [facility] Miscellaneous Information (Potassium Replacement Protocol 1 Each Misc) 1 each MISCELLANE DAILY PRN; Protocol PRN Reason: Per Protocol Miscellaneous Information (Magnesium Replacement Protocol 1 Each Misc) 1 each MISCELLANE DAILY PRN; Protocol PRN Reason: Per Protocol Miscellaneous Information (Potassium Replacement Protocol 1 Each Misc) 1 each MISCELLANE DAILY PRN; Protocol PRN Reason: Per Protocol Multivitamins (Multivitamins, Thera 1 Each Tab) 1 each PO DAILY [facility] Ondansetron HCl (Ondansetron 4 Mg/2 Ml Vial) 4 mg IVP Q6HR PRN PRN Reason: Nausea And Vomiting Pantoprazole Sodium (Pantoprazole 40 Mg/10 Ml Vial) 40 mg IVP DAILY [facility] Senna/Docusate Sodium (Sennosides-Docusate Sodium 1 Each Tab) 2 each PO HS [facility] Sodium Chloride (Sodium Chloride 0.9% Flush 10 Ml Syringe) 10 ml IV BID [facility] Tramadol HCl (Tramadol 50 Mg Tab) 50 mg PO Q4HR PRN PRN Reason: Moderate Pain (Scale 4 to 6) Tramadol HCl (Tramadol 50 Mg Tab) 100 mg PO Q4HR PRN PRN Reason: Severe Pain (Scale 7 to 10) Last Admin: 05/01/24 15:29 Dose: 100 mg Past medical history to include: Prior history of DVT and pulm embolism, GERD, hyperlipidemia, BPH, psoriasis, COVID and February 2021, osteoarthritis, Ribeiro's esophagus. Denies any history of CAD. 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 . Non-smoker. Maybe 1 drink on weekends. Occasionally Physical examination: VITAL SIGNS: Afebrile, 88, 14, 137 x 50, 97% on the ventilator GENERAL: Laying in bed, sedated EYES: Pupils equal. Conjunctiva monae l. HEENT: External appearance of nose and ears normal, oral cavity-endotracheal tube NECK: JVD not raised; masses not palpable. HEART: First and second heart sounds are normal; no edema. LUNGS: Respiratory rate increased l; his breath sounds ABDOMEN: Soft, nontender, liver spleen not palpable, no masses palpable. PSYCH: Sedated on propofol MUSCULOSKELETAL:No Clubbing/cyanosis;muscles-grossly intact INVESTIGATIONS, reviewed in the clinical context: May 01: White count 18.3 hemoglobin 12.1 platelets 206 LDL 136 April 29: White count 7.9 hemoglobin 13.1 platelets 236 potassium 4.2 creatinine 0.69 Troponin I 0.118, 0.863 EKG reported by the EMS: ST elevation. Carotid Doppler: No significant stenosis 2D echocardiogram: [place] hypokinetic. Moderately reduced global LV function EF 35 to 40%. Assessment plan: -Coronary artery bypass x 4 occlusion of left atrial appendage with AtriCure clip. [May 01, 2024-Dr. Lawson] -Acute respiratory failure with ventilator support -Acute non-ST elevation myocardial infarction. -Postinfarct angina-resolved -Triple-vessel coronary artery disease per cardiac catheterization: Status post CABG Aspirin. Controlled. Plavix. Lopressor. -Essential hypertension Lopressor 12.5 mg twice daily -Hyperlipidemia Lipitor 80 mg nightly Endotracheal tube on the ventilator support. Past Medical History Past Medical History: Coronary Artery Disease (CAD), Chest Pain / Angina, Deep Vein Thrombosis (DVT), GERD/Reflux, Hyperlipidemia, Myocardial Infarction ([place]), Prostate Disorder, Pulmonary Embolus (PE), Skin Disorder Additional Past Medical History / Comment(s): psoriasis ( wrist and elbows both arms), had COVID 03/2021. 08/2019 blood clot in legs and lung . arthritis in hands, History of PE; Ribeiro's esophagitis History of Any Multi-Drug Resistant Organisms: None Reported Past Surgical History: Orthopedic Surgery Additional Past Surgical History / Comment(s): bl knee replacement, rt shoulder surgery after fx, EGD 07/26/21 most prostate removed no cancer Past Anesthesia/Blood Transfusion Reactions: Previous Problems w/ Anesthesia, Postoperative Nausea & Vomiting (PONV) Additional Past Anesthesia/Blood Transfusion Reaction / Comment(s): diff swallowing after EGD,ribeiro esophagus. no blood transfusions Past Psychological History: No Psychological Hx Reported Smoking Status: Never smoker Past Alcohol Use History: Rare Additional Past Alcohol Use History / Comment(s): 1 drink occasionally on the weekends Past Drug Use History: None Reported
[2024-05-01 20:11] LABS: Glucose,Whole Blood 118 mg/dL (70-110)
[2024-05-01 20:46] LABS: Basophils % (A) 0 %; Eosinophils % (A) 0 %; HCT 36.9 % (39.0-53.0); HGB 12.1 gm/dL (13.0-17.5); Lymphocytes # (A) 0.3 k/uL (1.0-4.8); Lymphocytes % (A) 2 %; MCH 28.8 pg (25.0-35.0); MCHC 32.8 g/dL (31.0-37.0); MCV 87.7 fL (80.0-100.0); Mean Platelet Volume 7.8; Monocytes # (A) 0.7 k/uL (0-1.0); Monocytes % (A) 4 %; Neutrophils # (A) 15.7 k/uL (1.3-7.7); Neutrophils % (A) 94 %; Platelet Count 194 k/uL (150-450); RDW 12.7 % (11.5-15.5); WBC 16.8 k/uL (3.8-10.6)
[2024-05-01 21:10] LABS: Glucose,Whole Blood 129 mg/dL (70-110)
[2024-05-01 22:15] LABS: Glucose,Whole Blood 118 mg/dL (70-110)
[2024-05-01 23:06] LABS: Glucose,Whole Blood 114 mg/dL (70-110)
[2024-05-02 00:01] LABS: Glucose,Whole Blood 117 mg/dL (70-110)
[2024-05-02 01:03] LABS: Glucose,Whole Blood 120 mg/dL (70-110)
[2024-05-02 02:08] LABS: Glucose,Whole Blood 120 mg/dL (70-110)
[2024-05-02 03:03] LABS: Glucose,Whole Blood 116 mg/dL (70-110)
[2024-05-02 04:00] LABS: Glucose,Whole Blood 126 mg/dL (70-110)
[2024-05-02 04:25] LABS: Basophils % (A) 0 %; Eosinophils % (A) 0 %; HCT 35.2 % (39.0-53.0); HGB 12.1 gm/dL (13.0-17.5); Lymphocytes # (A) 0.9 k/uL (1.0-4.8); Lymphocytes % (A) 7 %; MCH 29.2 pg (25.0-35.0); MCHC 34.4 g/dL (31.0-37.0); MCV 85.1 fL (80.0-100.0); Mean Platelet Volume 8.2; Monocytes # (A) 0.7 k/uL (0-1.0); Monocytes % (A) 5 %; Neutrophils # (A) 11.6 k/uL (1.3-7.7); Neutrophils % (A) 87 %; Platelet Count 190 k/uL (150-450); RBC 4.14 m/uL (4.30-5.90); WBC 13.3 k/uL (3.8-10.6)
[2024-05-02 04:41] LABS: Ionized Calcium 4.9 mg/dL (4.5-5.3)
[2024-05-02 04:50] LABS: ALT 19 U/L (4-49); AST 41 U/L (17-59); African American GFR (CKD) >90 (>60 ml/min/1.73 sqM); Alkaline Phosphatase 57 U/L (38-126); Anion Gap 1 mmol/L; Blood Urea Nitrogen 11 mg/dL (9-20); Calcium 8.8 mg/dL (8.4-10.2); Carbon Dioxide 24 mmol/L (22-30); Chloride 106 mmol/L (98-107); Glucose 115 mg/dL (74-99); Non-African American GFR(CKD) >90 (>60 ml/min/1.73 sqM); Potassium 4.3 mmol/L (3.5-5.1); Sodium 131 mmol/L (137-145); Total Protein 4.9 g/dL (6.3-8.2)
[2024-05-02 04:58] LABS: Glucose,Whole Blood 121 mg/dL (70-110)
[2024-05-02] MEDS: ALBUMIN HUMAN 5% 250 ML in EMPTY BAG 1 BAG IVPB PRN (06:00)
[2024-05-02 06:12] LABS: Glucose,Whole Blood 122 mg/dL (70-110)
[2024-05-02 06:50] LABS: Glucose,Whole Blood 131 mg/dL (70-110)
[2024-05-02] MEDS: KETOROLAC 15 MG/ML 1 ML VIAL IVP SCH (07:04)
--- NOTE | 2024-05-02 07:50 | P.PN ---
Subjective Progress Note Date: 05/02/24 Principal diagnosis: Triple-vessel coronary artery disease, unstable angina, STEMI/subendocardial infarction this admission. 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 Occlusion of left atrial appendage with 35 mm AtriCure clip. Left greater saphenous vein harvest from ankle to knee using endovascular harvest technique. [place] of the left radial artery using endovascular harvest technique. The patient was seen and examined this morning sitting up in recliner in the intensive care unit in no acute distress. He was successfully extubated yesterday to BiPAP at 17:10. Currently in sinus rhythm, hemodynamically stable on no inotropes or pressors. Was on Cleviprex for most of the night for hypertension, currently on Cardizem and nitro for vessel spasm prophylaxis. Does complain of some postoperative expected pain but reluctant to take oral narcotics because they make him "feel funny". Will add in nonnarcotic pain co ntrol. Otherwise patient is doing well. Currently on 3 L nasal cannula with oxygen saturation in the high 90s, able to achieve 750 to 1000 mL on incentive spirometry. Right internal jugular Heath/Cordis, right radial arterial line, mediastinal/left pleural chest tubes, left forearm ZENAIDA present. No other new concerns. Objective - Vital Signs Vital signs: Vital Signs Temp 97.0 F L 05/01/24 16:00 Pulse 71 05/02/24 07:00 Resp 17 05/02/24 07:00 BP 126/77 05/02/24 06:00 Pulse Ox 99 05/02/24 07:00 FiO2 45 05/01/24 20:00 Intake & Output 05/01/24 05/02/24 05/02/24 18:59 06:59 18:59 Intake Total 200.720 2555.955 Output Total 2910 1990 Balance -2109.871 -426.045 Weight 94.6 kg Intake: IV 641.5 915.0 ACETAMINOPHEN IV (For NPO 100 ) 1,000 mg In Empty Bag 1 bag @ 400 mls/hr IVPB Q6HR [facility] Rx#:[id number] CO/CI 90 130 Magnesium Sulfate-D5w Pmx 100 1 gm In Dextrose/Water 1 100ml.bag @ 100 mls/hr IVPB ONCE ONE Rx#: [id number] Nitroglycerin-D5w Pmx 50 7.5 18.0 mg In Dextrose/Water 1 250ml.bag @ 5 MCG/MIN 1.5 mls/hr IV .Q24H [facility] Rx#: [id number] Sodium Chloride 0.9% 1, 0 000 ml @ 20 mls/hr IV . Q24H [facility] Rx#:[id number] Sodium Chloride 0.9% 1, 245 650 000 ml @ 30 mls/hr IV . Q24H [facility] Rx#:[id number] ceFAZolin 2 gm In Sodium 50 Chloride 0.9% 50 ml @ 100 mls/hr IVPB Q8HR [facility] Rx# :[id number] pressure bags 45 117 Intake, IV Titration 98.629 448.955 Amount ACETAMINOPHEN IV (For NPO 100 ) 1,000 mg In Empty Bag 1 bag @ 400 mls/hr IVPB Q6HR [facility] Rx#:[id number] Albumin Human 5% 250 ml 250 In Empty Bag 1 bag @ 250 mls/hr IVPB Q1HR PRN Rx#: [id number] Clevidipine Butyrate 25 12.000 41.733 mg In Empty Bag 1 bag @ 1 MG/HR 2 mls/hr IV .Q24H [facility] Rx#:[id number] Dexmedetomidine/0.9% NaCl 27.218 (Pmx) 400 mcg In Empty Bag 1 bag @ Titrate IV . Q0M [facility] Rx#:[id number] Insulin Regular 100 unit 4.782 7.222 In Sodium Chloride 0.9% 100 ml @ Per Protocol IV .Q0M [facility] Rx#:[id number] ceFAZolin 2 gm In Sodium 50 Chloride 0.9% 50 ml @ 100 mls/hr IVPB ONCE ONE Rx# :[id number] propofoL 1,000 mg In 54.629 Empty Bag 1 bag @ Titrate IV .Q0M [facility] Rx#: [id number] Oral 200 Other 60 Output: Chest Tube Drainage 360 470 MS 190 310 left pleural 170 160 Drainage 20 50 Left Arm 20 50 Urine 1930 1470 Estimated Blood Loss 600 Other: Voiding Method Indwelling Catheter Indwelling Catheter ABP, PAP, CO, CI - Last Documented Arterial Blood Pressure 140/42 Pulmonary Artery Pressure 30/10 Cardiac Output 5.1 Cardiac Index 2.4 - Exam CONSTITUTIONAL: Appears comfortable, cooperative, no acute distress RESPIRATORY: Lungs sounds diminished in the bases bilaterally. Respirations even, nonlabored. Currently on 3 L nasal cannula with oxygen saturation 99%. Able to achieve 750-1000 mL on incentive spirometry. Strong nonproductive cough. CARDIOVASCULAR: S1, S2 present. Regular rate and rhythm, sinus rhythm on telemetry. Sternum stable. Palpable peripheral pulses bilaterally. No edema present. No calf pain or tenderness noted. Heart hugger in place with patient demonstrating appropriate use. Antiembolism stockings, SCDs present. GASTROINTESTINAL: Abdomen soft, nontender, nondistended. Hypoactive bowel sounds present 4 quadrants. Tolerating minimal clear liquids. Positive belching, denies flatus GENITOURINARY: Ruiz present draining clear, yellow urine. Output overnight 100-150 mL per hour INTEGUMENTARY: Skin is warm and dry with evidence of good perfusion. Anterior chest incision well approximated and covered with dry intact dressing. Left lower extremity EVH site well approximated without redness or drainage. Left r adial artery harvest site with ZENAIDA drain present, minimal serosanguineous drainage NEUROLOGIC: Cranial nerves II through XII intact MUSKULOSKELETAL: Able to move all extremities, strength equal bilaterally PSYCHIATRIC: Alert and oriented to person place and time, appropriate affect, intact judgment and insight INVASIVE LINES AND TUBES: Mediastinal/left pleural chest tubes present and connected to wall suction, no air leaks present. Mediastinal tube with 210 mL serosanguineous drainage overnight, 540 mL since surgery. Left pleural chest tube with 110 mL serosanguineous drainage overnight, 340 mL since surgery. Right internal jugular Heath/Cordis, right radial arterial line present. Last CO/CI 5.1/2.4, PA 33/11, CVP 5. - Allied health notes Allied health notes reviewed: nursing - Labs CBC & Chem 7: 05/02/24 04:00 05/02/24 04:00 Labs: Abnormal Lab Results - Last 24 Hours (Table) 04/29/24 05/01/24 05/01/24 Range/Units 14:45 08:40 10:27 WBC (3.8-10.6) k/uL RBC (4.30-5.90) m/uL Hgb (13.0-17.5) gm/dL Hct (39.0-53.0) % Plt Count (150-450) k/uL Neutrophils # (1.3-7.7) k/uL Lymphocytes # (1.0-4.8) k/uL ABG pO2 418 H 226 H (83-108) mmHg ABG Total CO2 (19-24) mmol/L ABG O2 Saturation >99.4 H 99.0 H (94-97) % ABG Glucose 104 H (75-99) mg/dL Hemoglobin 12.1 L 11.1 L (13.0-17.5) gm/dL Sodium (137-145) mmol/L Chloride (98-107) mmol/L Creatinine (0.66-1.25) mg/dL Glucose (74-99) mg/dL POC Glucose (mg/dL) (70-110) mg/dL Calcium (8.4-10.2) mg/dL Total Protein (6.3-8.2) g/dL Albumin (3.5-5.0) g/dL Arterial Blood Glucose 104 H (75-99) mg/dL Crossmatch See Detail 05/01/24 05/01/24 05/01/24 Range/Units 13:52 13:52 14:19 WBC 12.6 H (3.8-10.6) k/uL RBC 3.66 L (4.30-5.90) m/uL Hgb 10.8 L (13.0-17.5) gm/dL Hct 31.3 L (39.0-53.0) % Plt Count 133 L (150-450) k/uL Neutrophils # 11.0 H (1.3-7.7) k/uL Lymphocytes # (1.0-4.8) k/uL ABG pO2 265 H (83-108) mmHg ABG Total CO2 25 H (19-24) mmol/L ABG O2 Saturation 100.0 H (94-97) % ABG Glucose (75-99) mg/dL Hemoglobin 11.4 L (13.0-17.5) gm/dL Sodium 134 L (137-145) mmol/L Chloride 110 H (98-107) mmol/L Creatinine 0.59 L (0.66-1.25) mg/dL Glucose (74-99) mg/dL POC Glucose (mg/dL) (70-110) mg/dL Calcium 8.1 L (8.4-10.2) mg/dL Total Protein 4.3 L (6.3-8.2) g/dL Albumin 2.6 L (3.5-5.0) g/dL Arterial Blood Glucose (75-99) mg/dL Crossmatch 05/01/24 05/01/24 05/01/24 Range/Units 15:07 16:00 16:48 WBC (3.8-10.6) k/uL RBC (4.30-5.90) m/uL Hgb (13.0-17.5) gm/dL Hct (39.0-53.0) % Plt Count (150-450) k/uL Neutrophils # (1.3-7.7) k/uL Lymphocytes # (1.0-4.8) k/uL ABG pO2 66 L (83-108) mmHg ABG Total CO2 25 H (19-24) mmol/L ABG O2 Saturation 93.0 L (94-97) % ABG Glucose (75-99) mg/dL Hemoglobin 12.2 L (13.0-17.5) gm/dL Sodium (137-145) mmol/L Chloride (98-107) mmol/L Creatinine (0.66-1.25) mg/dL Glucose (74-99) mg/dL POC Glucose (mg/dL) 129 H 146 H (70-110) mg/dL Calcium (8.4-10.2) mg/dL Total Protein (6.3-8.2) g/dL Albumin (3.5-5.0) g/dL Arterial Blood Glucose (75-99) mg/dL Crossmatch 05/01/24 05/01/24 05/01/24 Range/Units 16:49 16:49 18:07 WBC 18.3 H (3.8-10.6) k/uL RBC 4.24 L (4.30-5.90) m/uL Hgb 12.1 L (13.0-17.5) gm/dL Hct 37.2 L (39.0-53.0) % Plt Count (150-450) k/uL Neutrophils # 16.4 H (1.3-7.7) k/uL Lymphocytes # (1.0-4.8) k/uL ABG pO2 (83-108) mmHg ABG Total CO2 (19-24) mmol/L ABG O2 Saturation (94-97) % ABG Glucose (75-99) mg/dL Hemoglobin (13.0-17.5) gm/dL Sodium (137-145) mmol/L Chloride (98-107) mmol/L Creatinine (0.66-1.25) mg/dL Glucose (74-99) mg/dL POC Glucose (mg/dL) 146 H 136 H (70-110) mg/dL Calcium (8.4-10.2) mg/dL Total Protein (6.3-8.2) g/dL Albumin (3.5-5.0) g/dL Arterial Blood Glucose (75-99) mg/dL Crossmatch 05/01/24 05/01/24 05/01/24 Range/Units 19:01 20:09 20:15 WBC 16.8 H (3.8-10.6) k/uL RBC 4.20 L (4.30-5.90) m/uL Hgb 12.1 L (13.0-17.5) gm/dL Hct 36.9 L (39.0-53.0) % Plt Count (150-450) k/uL Neutrophils # 15.7 H (1.3-7.7) k/uL Lymphocytes # 0.3 L (1.0-4.8) k/uL ABG pO2 (83-108) mmHg ABG Total CO2 (19-24) mmol/L ABG O2 Saturation (94-97) % ABG Glucose (75-99) mg/dL Hemoglobin (13.0-17.5) gm/dL Sodium (137-145) mmol/L Chloride (98-107) mmol/L Creatinine (0.66-1.25) mg/dL Glucose (74-99) mg/dL POC Glucose (mg/dL) 125 H 118 H (70-110) mg/dL Calcium (8.4-10.2) mg/dL Total Protein (6.3-8.2) g/dL Albumin (3.5-5.0) g/dL Arterial Blood Glucose (75-99) mg/dL Crossmatch 05/01/24 05/01/24 05/01/24 Range/Units 21:08 22:12 23:04 WBC (3.8-10.6) k/uL RBC (4.30-5.90) m/uL Hgb (13.0-17.5) gm/dL Hct (39.0-53.0) % Plt Count (150-450) k/uL Neutrophils # (1.3-7.7) k/uL Lymphocytes # (1.0-4.8) k/uL ABG pO2 (83-108) mmHg ABG Total CO2 (19-24) mmol/L ABG O2 Saturation (94-97) % ABG Glucose (75-99) mg/dL Hemoglobin (13.0-17.5) gm/dL Sodium (137-145) mmol/L Chloride (98-107) mmol/L Creatinine (0.66-1.25) mg/dL Glucose (74-99) mg/dL POC Glucose (mg/dL) 129 H 118 H 114 H (70-110) mg/dL Calcium (8.4-10.2) mg/dL Total Protein (6.3-8.2) g/dL Albumin (3.5-5.0) g/dL Arterial Blood Glucose (75-99) mg/dL Crossmatch 05/02/24 05/02/24 05/02/24 Range/Units 00:00 01:02 02:06 WBC (3.8-10.6) k/uL RBC (4.30-5.90) m/uL Hgb (13.0-17.5) gm/dL Hct (39.0-53.0) % Plt Count (150-450) k/uL Neutrophils # (1.3-7.7) k/uL Lymphocytes # (1.0-4.8) k/uL ABG pO2 (83-108) mmHg ABG Total CO2 (19-24) mmol/L ABG O2 Saturation (94-97) % ABG Glucose (75-99) mg/dL Hemoglobin (13.0-17.5) gm/dL Sodium (137-145) mmol/L Chloride (98-107) mmol/L Creatinine (0.66-1.25) mg/dL Glucose (74-99) mg/dL POC Glucose (mg/dL) 117 H 120 H 120 H (70-110) mg/dL Calcium (8.4-10.2) mg/dL Total Protein (6.3-8.2) g/dL Albumin (3.5-5.0) g/dL Arterial Blood Glucose (75-99) mg/dL Crossmatch 05/02/24 05/02/24 05/02/24 Range/Units 03:02 03:58 04:00 WBC 13.3 H (3.8-10.6) k/uL RBC 4.14 L (4.30-5.90) m/uL Hgb 12.1 L (13.0-17.5) gm/dL Hct 35.2 L (39.0-53.0) % Plt Count (150-450) k/uL Neutrophils # 11.6 H (1.3-7.7) k/uL Lymphocytes # 0.9 L (1.0-4.8) k/uL ABG pO2 (83-108) mmHg ABG Total CO2 (19-24) mmol/L ABG O2 Saturation (94-97) % ABG Glucose (75-99) mg/dL Hemoglobin (13.0-17.5) gm/dL Sodium (137-145) mmol/L Chloride (98-107) mmol/L Creatinine (0.66-1.25) mg/dL Glucose (74-99) mg/dL POC Glucose (mg/dL) 116 H 126 H (70-110) mg/dL Calcium (8.4-10.2) mg/dL Total Protein (6.3-8.2) g/dL Albumin (3.5-5.0) g/dL Arterial Blood Glucose (75-99) mg/dL Crossmatch 05/02/24 05/02/24 05/02/24 Range/Units 04:00 04:57 06:10 WBC (3.8-10.6) k/uL RBC (4.30-5.90) m/uL Hgb (13.0-17.5) gm/dL Hct (39.0-53.0) % Plt Count (150-450) k/uL Neutrophils # (1.3-7.7) k/uL Lymphocytes # (1.0-4.8) k/uL ABG pO2 (83-108) mmHg ABG Total CO2 (19-24) mmol/L ABG O2 Saturation (94-97) % ABG Glucose (75-99) mg/dL Hemoglobin (13.0-17.5) gm/dL Sodium 131 L (137-145) mmol/L Chloride (98-107) mmol/L Creatinine 0.65 L (0.66-1.25) mg/dL Glucose 115 H (74-99) mg/dL POC Glucose (mg/dL) 121 H 122 H (70-110) mg/dL Calcium (8.4-10.2) mg/dL Total Protein 4.9 L (6.3-8.2) g/dL Albumin 3.0 L (3.5-5.0) g/dL Arterial Blood Glucose (75-99) mg/dL Crossmatch 05/02/24 Range/Units 06:49 WBC (3.8-10.6) k/uL RBC (4.30-5.90) m/uL Hgb (13.0-17.5) gm/dL Hct (39.0-53.0) % Plt Count (150-450) k/uL Neutrophils # (1.3-7.7) k/uL Lymphocytes # (1.0-4.8) k/uL ABG pO2 (83-108) mmHg ABG Total CO2 (19-24) mmol/L ABG O2 Saturation (94-97) % ABG Glucose (75-99) mg/dL Hemoglobin (13.0-17.5) gm/dL Sodium (137-145) mmol/L Chloride (98-107) mmol/L Creatinine (0.66-1.25) mg/dL Glucose (74-99) mg/dL POC Glucose (mg/dL) 131 H (70-110) mg/dL Calcium (8.4-10.2) mg/dL Total Protein (6.3-8.2) g/dL Albumin (3.5-5.0) g/dL Arterial Blood Glucose (75-99) mg/dL Crossmatch - Imaging and Cardiology Chest x-ray: image reviewed Assessment and Plan Assessment: Triple-vessel coronary artery disease, unstable angina, STEMI/subendocardial infarction this admission, status post four-vessel off-pump CABG Chest pain, secondary to above Reduced global left ventricular systolic function, EF 35-40% and preoperative TTE, improved/normalized IntraOp History of hyperlipidemia, cholesterol 203, LDL 136 Tipton's esophagitis Left lower extremity DVT and multiple PEs in August 2019 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 Will increase beta-alexandr therapy as tolerated. Discontinue IV nitro. No anticoagulation until all lines and tubes have been disconnected Will start oral calcium channel alexandr for radial artery spasm prophylaxis, may discontinue IV Cardizem after administration Wean O2 as tolerated, encourage incentive spirometry use 10 times every hour while awake. Bronchodilators per pulmonology Increase activity, ambulate as tolerated. PT/OT/cardiac rehab consulted Will monitor daily labs and x-rays, electrolyte replacement per protocol GI/DVT prophylaxis Pain control per current medication regimen. Will add Toradol and Robaxin for better pain control Insulin management per internal medicine. Patient is not diagnosed diabetic, hemoglobin A1c 6.4%. Needs tight blood sugar control. Patient should remain on IV continuous insulin for 48 hours postsurgery, then may transition to subcutaneous per protocol Discontinue Heath. Connect Cordis to continuous CVP monitoring Will discontinue ZENAIDA drain Continue chest tubes for another 24 hours, monitor output Continue Ruiz catheter for another 24 hours, continue to monitor and record strict accurate intake and output More recommendations to follow
[2024-05-02 08:19] LABS: Glucose,Whole Blood 154 mg/dL (70-110)
[2024-05-02] MEDS: PANTOPRAZOLE 40 MG/10 ML VIAL IVP SCH (08:28)
[2024-05-02] MEDS: ATORVASTATIN 40 MG TAB PO SCH (08:28)
[2024-05-02] MEDS: METOPROLOL TARTRATE 12.5 MG TAB PO SCH (08:28)
[2024-05-02] MEDS: CLOPIDOGREL 75 MG TAB PO SCH (08:28)
[2024-05-02] MEDS: ASPIRIN 325 MG TAB PO SCH (08:29)
[2024-05-02] MEDS: MULTIVITAMINS, THERA 1 EACH TAB PO SCH (08:29)
--- NOTE | 2024-05-02 08:35 | XR ---
EXAMINATION TYPE: XR chest 1V portable DATE OF EXAM: 05/02/2024 Comparison: 05/01/2024 Clinical History: 68-year-old male Post Operative Cardiac Surgery Findings: Median sternotomy wires with post-CABG clips. Mediastinal drain. Left-sided chest tube without apprec iable pneumothorax. Right IJ [place] catheter tip at the main pulmonary artery bifurcation level. M ild patchy interstitial densities persist. Some patchy bibasilar opacities have slightly increased. P ossible trace pleural effusions. Interval extubation. Impression: Interval extubation. Post-CABG changes. Similar to slight increasing mild pulmonary vascular congesti on and patchy bibasilar opacities. [facility] Rosalie Mart, , 05/02/2024 8:33 AM
[2024-05-02] MEDS ORDERED: MAGNESIUM HYDROXIDE 2,400 MG/30 ML CUP PO PRN (09:00)
[2024-05-02] MEDS ORDERED: bisacodyL 10 MG SUPP RECTAL PRN (09:00)
[2024-05-02 09:05] LABS: Glucose,Whole Blood 137 mg/dL (70-110)
[2024-05-02] MEDS: amLODIPine 2.5 MG TAB PO SCH (09:47)
[2024-05-02 10:13] LABS: Glucose,Whole Blood 131 mg/dL (70-110)
[2024-05-02 10:36] VITALS: BMI 27.5
[2024-05-02 11:15] LABS: Glucose,Whole Blood 124 mg/dL (70-110)
--- NOTE | 2024-05-02 11:40 | P.PN ---
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 He presented here to the emergency room yesterday with chest pain. Was found to have a transient ST segment elevation myocardial infarction and had undergone cardiac catheterization last evening that revealed calcified coronary arteries, severe stenosis in the proximal and mid LAD, severe stenosis in the proximal left circumflex and obtuse marginal branch 1 and 2, moderate to significant disease in the mid RCA. He is recommended coronary artery bypass grafting. He is currently on a heparin drip. The plan is for continue to hold his Eliquis and surgery on Wednesday, May 01, 2024. He is seen today in consultation. He is currently sitting up in a chair at the bedside. Awake and alert in no acute distress. Maintaining O2 saturations in the 90s on room air. He is able to pull 3 L on the incentive spirometer. Chest x-ray reveals no acute pulmonary process. CT scan of the chest reveals air lung sparrow. No pulmonary nodule or mass detected. Thoracic aorta is of normal caliber. Cardiogram does revealed impaired left ventricular systolic function with an ejection fraction of 35 to 40%. Apical hypokinesia. White count 7.9. Hemoglobin 13.1. Platelets 236. Sodium 136. Potassium 4.2. Bicarb 25. BUN 21. Creatinine 0.69. Troponin 0.118, 0.863. Hepatitis screen negative. Carotid Dopplers revealed no hemodynamically significant stenosis bilaterally. Patient was evaluated today on 04/30/2024, patient is doing well, sitting at the bedside chair, not in any distress, he is a bit anxious about his surgery which is expected. Patient is considered low risk for surgery, he is hemodynamically stable, in sinus rhythm, on room air, and doing extremely well with incentive spirometry. Patient was seen today on 05/01/2024, patient is now status postOff-pump CABG x 4 with sequential GERARD to the proximal and mid LAD, saphenous vein graft to right coronary artery, left radial artery graft to first obtuse marginal coronary artery. Occlusion of left atrial appendage with 35 mm AtriCure clip. Left greater saphenous vein harvest from ankle to knee using endovascular harvest technique. Maribel of the left radial artery using endovascular harvest technique. Postoperative day #0. I saw the patient in the ICU, he is intubated mechanically ventilated, he is now on assist-control rate of 16 tidal volume 550 FiO2 60% he was on 100% earlier and ABG was done on 100% PEEP of 5 ABG showed a pO2 of 265 pCO2 36 pH 7.44. Patient is on multiple drips including Cleviprex at 4 mg/h, nitroglycerin 5 mg/min, and propofol at 50 mcg/kg/min. Hemodynamics are cardiac out of 6.6 cardiac index of 3.1. Pulmonary artery pressure 42/25. Chest x-ray showed postoperative changes and postoperative atelectasis. Endotracheal tube was noted to be about 6 cm above the naseem. Nasogastric tube is under the diaphragm. Tip of the Oakley-Lilo catheter is in proper position. Left thoracotomy tube present, no pneumothorax. Mediastinal tube is in proper position The patient is seen today May 02, 2024 in follow-up in the intensive care unit. He is postoperative day #1. He is currently sitting up in a chair at the bedside. Awake and alert in no acute distress. He is maintaining good O2 saturations in the 90s on 2 L/min per nasal cannula. He remains on insulin drip at 1 unit/h. Normal saline at 50 mL/h. Chest x-ray reveals mild pulmonary vascular congestion and patchy basilar opacities. He is working well with the incentive spirometer. Right internal jugular Oakley-Lilo catheter in place, right radial arterial line in place. Left forearm ZENAIDA drain is present. Salo wrap in place. Salo wraps to the bilateral lower extremities. Cardiac output 5.1. Cardiac index 2.4. PA pressures 33/11. CVP of 5. D. Sodium 131. Potassium 4.3. Bicarb 24. BUN 11. Creatinine 0.65. Glucose 115. He remains on bronchodilators. Receiving albumin. Heparin for DVT prophylaxis. His pain is currently well-controlled. Objective - Vital Signs Vital signs: Vital Signs Temp 98.8 F 05/02/24 08:00 Pulse 69 05/02/24 11:26 Resp 22 05/02/24 11:00 BP 126/77 05/02/24 11:00 Pulse Ox 99 05/02/24 11:00 FiO2 45 05/01/24 20:00 Intake & Output 1005/02/24 05/02/24 18:59 06:59 18:59 Intake Total 438.162 6372.955 635.601 Output Total 2910 1990 225 Balance -2109.871 -426.045 410.601 Weight 94.6 kg 94.6 kg Intake: IV 641.5 915.0 233 ACETAMINOPHEN IV (For NPO 100 ) 1,000 mg In Empty Bag 1 bag @ 400 mls/hr IVPB Q6HR [facility] Rx#:[id number] CO/CI 90 130 Magnesium Sulfate-D5w Pmx 100 1 gm In Dextrose/Water 1 100ml.bag @ 100 mls/hr IVPB ONCE ONE Rx#: [id number] Nitroglycerin-D5w Pmx 50 7.5 18.0 mg In Dextrose/Water 1 250ml.bag @ 5 MCG/MIN 1.5 mls/hr IV .Q24H [facility] Rx#: [id number] Sodium Chloride 0.9% 1, 0 000 ml @ 20 mls/hr IV . Q24H [facility] Rx#:[id number] Sodium Chloride 0.9% 1, 245 650 200 000 ml @ 30 mls/hr IV . Q24H [facility] Rx#:[id number] ceFAZolin 2 gm In Sodium 50 Chloride 0.9% 50 ml @ 100 mls/hr IVPB Q8HR [facility] Rx# :[id number] pressure bags 45 117 33 Intake, IV Titration 98.629 448.955 2.601 Amount ACETAMINOPHEN IV (For NPO 100 ) 1,000 mg In Empty Bag 1 bag @ 400 mls/hr IVPB Q6HR [facility] Rx#:[id number] Albumin Human 5% 250 ml 250 In Empty Bag 1 bag @ 250 mls/hr IVPB Q1HR PRN Rx#: [id number] Clevidipine Butyrate 25 12.000 41.733 mg In Empty Bag 1 bag @ 1 MG/HR 2 mls/hr IV .Q24H [facility] Rx#:[id number] Dexmedetomidine/0.9% NaCl 27.218 (Pmx) 400 mcg In Empty Bag 1 bag @ Titrate IV . Q0M [facility] Rx#:[id number] Insulin Regular 100 unit 4.782 7.222 2.601 In Sodium Chloride 0.9% 100 ml @ Per Protocol IV .Q0M [facility] Rx#:[id number] ceFAZolin 2 gm In Sodium 50 Chloride 0.9% 50 ml @ 100 mls/hr IVPB ONCE ONE Rx# :[id number] propofoL 1,000 mg In 54.629 Empty Bag 1 bag @ Titrate IV .Q0M [facility] Rx#: [id number] Oral 200 400 Other 60 Output: Chest Tube Drainage 360 470 90 MS 190 310 30 left pleural 170 160 60 Drainage 20 50 Left Arm 20 50 Urine 1930 1470 135 Estimated Blood Loss 600 Other: Voiding Method Indwelling Catheter Indwelling Catheter Indwelling Catheter ABP, PAP, CO, CI - Last Documented Arterial Blood Pressure 129/49 Pulmonary Artery Pressure 26/8 Cardiac Output 5.1 Cardiac Index 2.4 - Exam GENERAL EXAM: Alert, 2 L nasal cannula, fairly comfortable in no apparent distress. HEAD: Normocephalic. EYES: Normal reaction of pupils, equal size. NOSE: Clear with pink turbinates. THROAT: No erythema or exudates. NECK: No masses, no JVD. Right internal jugular Oakley-Lilo catheter in place. CHEST: Sternum stable. Dressing dry and intact. Heart hugger in place. Media stinal and left chest tubes to Pleur-evac and wall suction. LUNGS: Equal air entry with faint crackles in the bilateral bases. CVS: S1 and S2 normal with no audible murmur, regular rhythm. ABDOMEN: No hepatosplenomegaly, normal bowel sounds, no guarding or rigidity. SPINE: No scoliosis or deformity SKIN: No rashes CENTRAL NERVOUS SYSTEM: No focal deficits, tone is normal in all 4 extremities. EXTREMITIES: Right radial arterial line in place. Left forearm ZENAIDA drain in place. Salo wraps to the lower extremities. There is no peripheral edema. No clubbing, no cyanosis. Peripheral pulses are intact. - Labs CBC & Chem 7: 05/02/24 04:00 05/02/24 04:00 Labs: Abnormal Lab Results - Last 24 Hours (Table) 04/29/24 05/01/24 05/01/24 Range/Units 14:45 08:40 10:27 WBC (3.8-10.6) k/uL RBC (4.30-5.90) m/uL Hgb (13.0-17.5) gm/dL Hct (39.0-53.0) % Plt Count (150-450) k/uL Neutrophils # (1.3-7.7) k/uL Lymphocytes # (1.0-4.8) k/uL ABG pO2 418 H 226 H (83-108) mmHg ABG Total CO2 (19-24) mmol/L ABG O2 Saturation >99.4 H 99.0 H (94-97) % ABG Glucose 104 H (75-99) mg/dL Hemoglobin 12.1 L 11.1 L (13.0-17.5) gm/dL Sodium (137-145) mmol/L Chloride (98-107) mmol/L Creatinine (0.66-1.25) mg/dL Glucose (74-99) mg/dL POC Glucose (mg/dL) (70-110) mg/dL Calcium (8.4-10.2) mg/dL Total Protein (6.3-8.2) g/dL Albumin (3.5-5.0) g/dL Arterial Blood Glucose 104 H (75-99) mg/dL Crossmatch See Detail 05/01/24 05/01/24 05/01/24 Range/Units 13:52 13:52 14:19 WBC 12.6 H (3.8-10.6) k/uL RBC 3.66 L (4.30-5.90) m/uL Hgb 10.8 L (13.0-17.5) gm/dL Hct 31.3 L (39.0-53.0) % Plt Count 133 L (150-450) k/uL Neutrophils # 11.0 H (1.3-7.7) k/uL Lymphocytes # (1.0-4.8) k/uL ABG pO2 265 H (83-108) mmHg ABG Total CO2 25 H (19-24) mmol/L ABG O2 Saturation 100.0 H (94-97) % ABG Glucose (75-99) mg/dL Hemoglobin 11.4 L (13.0-17.5) gm/dL Sodium 134 L (137-145) mmol/L Chloride 110 H (98-107) mmol/L Creatinine 0.59 L (0.66-1.25) mg/dL Glucose (74-99) mg/dL POC Glucose (mg/dL) (70-110) mg/dL Calcium 8.1 L (8.4-10.2) mg/dL Total Protein 4.3 L (6.3-8.2) g/dL Albumin 2.6 L (3.5-5.0) g/dL Arterial Blood Glucose (75-99) mg/dL Crossmatch 05/01/24 05/01/24 05/01/24 Range/Units 15:07 16:00 16:48 WBC (3.8-10.6) k/uL RBC (4.30-5.90) m/uL Hgb (13.0-17.5) gm/dL Hct (39.0-53.0) % Plt Count (150-450) k/uL Neutrophils # (1.3-7.7) k/uL Lymphocytes # (1.0-4.8) k/uL ABG pO2 66 L (83-108) mmHg ABG Total CO2 25 H (19-24) mmol/L ABG O2 Saturation 93.0 L (94-97) % ABG Glucose (75-99) mg/dL Hemoglobin 12.2 L (13.0-17.5) gm/dL Sodium (137-145) mmol/L Chloride (98-107) mmol/L Creatinine (0.66-1.25) mg/dL Glucose (74-99) mg/dL POC Glucose (mg/dL) 129 H 146 H (70-110) mg/dL Calcium (8.4-10.2) mg/dL Total Protein (6.3-8.2) g/dL Albumin (3.5-5.0) g/dL Arterial Blood Glucose (75-99) mg/dL Crossmatch 05/01/24 05/01/24 05/01/24 Range/Units 16:49 16:49 18:07 WBC 18.3 H (3.8-10.6) k/uL RBC 4.24 L (4.30-5.90) m/uL Hgb 12.1 L (13.0-17.5) gm/dL Hct 37.2 L (39.0-53.0) % Plt Count (150-450) k/uL Neutrophils # 16.4 H (1.3-7.7) k/uL Lymphocytes # (1.0-4.8) k/uL ABG pO2 (83-108) mmHg ABG Total CO2 (19-24) mmol/L ABG O2 Saturation (94-97) % ABG Glucose (75-99) mg/dL Hemoglobin (13.0-17.5) gm/dL Sodium (137-145) mmol/L Chloride (98-107) mmol/L Creatinine (0.66-1.25) mg/dL Glucose (74-99) mg/dL POC Glucose (mg/dL) 146 H 136 H (70-110) mg/dL Calcium (8.4-10.2) mg/dL Total Protein (6.3-8.2) g/dL Albumin (3.5-5.0) g/dL Arterial Blood Glucose (75-99) mg/dL Crossmatch 05/01/24 05/01/24 05/01/24 Range/Units 19:01 20:09 20:15 WBC 16.8 H (3.8-10.6) k/uL RBC 4.20 L (4.30-5.90) m/uL Hgb 12.1 L (13.0-17.5) gm/dL Hct 36.9 L (39.0-53.0) % Plt Count (150-450) k/uL Neutrophils # 15.7 H (1.3-7.7) k/uL Lymphocytes # 0.3 L (1.0-4.8) k/uL ABG pO2 (83-108) mmHg ABG Total CO2 (19-24) mmol/L ABG O2 Saturation (94-97) % ABG Glucose (75-99) mg/dL Hemoglobin (13.0-17.5) gm/dL Sodium (137-145) mmol/L Chloride (98-107) mmol/L Creatinine (0.66-1.25) mg/dL Glucose (74-99) mg/dL POC Glucose (mg/dL) 125 H 118 H (70-110) mg/dL Calcium (8.4-10.2) mg/dL Total Protein (6.3-8.2) g/dL Albumin (3.5-5.0) g/dL Arterial Blood Glucose (75-99) mg/dL Crossmatch 05/01/24 05/01/24 05/01/24 Range/Units 21:08 22:12 23:04 WBC (3.8-10.6) k/uL RBC (4.30-5.90) m/uL Hgb (13.0-17.5) gm/dL Hct (39.0-53.0) % Plt Count (150-450) k/uL Neutrophils # (1.3-7.7) k/uL Lymphocytes # (1.0-4.8) k/uL ABG pO2 (83-108) mmHg ABG Total CO2 (19-24) mmol/L ABG O2 Saturation (94-97) % ABG Glucose (75-99) mg/dL Hemoglobin (13.0-17.5) gm/dL Sodium (137-145) mmol/L Chloride (98-107) mmol/L Creatinine (0.66-1.25) mg/dL Glucose (74-99) mg/dL POC Glucose (mg/dL) 129 H 118 H 114 H (70-110) mg/dL Calcium (8.4-10.2) mg/dL Total Protein (6.3-8.2) g/dL Albumin (3.5-5.0) g/dL Arterial Blood Glucose (75-99) mg/dL Crossmatch 05/02/24 05/02/24 05/02/24 Range/Units 00:00 01:02 02:06 WBC (3.8-10.6) k/uL RBC (4.30-5.90) m/uL Hgb (13.0-17.5) gm/dL Hct (39.0-53.0) % Plt Count (150-450) k/uL Neutrophils # (1.3-7.7) k/uL Lymphocytes # (1.0-4.8) k/uL ABG pO2 (83-108) mmHg ABG Total CO2 (19-24) mmol/L ABG O2 Saturation (94-97) % ABG Glucose (75-99) mg/dL Hemoglobin (13.0-17.5) gm/dL Sodium (137-145) mmol/L Chloride (98-107) mmol/L Creatinine (0.66-1.25) mg/dL Glucose (74-99) mg/dL POC Glucose (mg/dL) 117 H 120 H 120 H (70-110) mg/dL Calcium (8.4-10.2) mg/dL Total Protein (6.3-8.2) g/dL Albumin (3.5-5.0) g/dL Arterial Blood Glucose (75-99) mg/dL Crossmatch 05/02/24 05/02/24 05/02/24 Range/Units 03:02 03:58 04:00 WBC 13.3 H (3.8-10.6) k/uL RBC 4.14 L (4.30-5.90) m/uL Hgb 12.1 L (13.0-17.5) gm/dL Hct 35.2 L (39.0-53.0) % Plt Count (150-450) k/uL Neutrophils # 11.6 H (1.3-7.7) k/uL Lymphocytes # 0.9 L (1.0-4.8) k/uL ABG pO2 (83-108) mmHg ABG Total CO2 (19-24) mmol/L ABG O2 Saturation (94-97) % ABG Glucose (75-99) mg/dL Hemoglobin (13.0-17.5) gm/dL Sodium (137-145) mmol/L Chloride (98-107) mmol/L Creatinine (0.66-1.25) mg/dL Glucose (74-99) mg/dL POC Glucose (mg/dL) 116 H 126 H (70-110) mg/dL Calcium (8.4-10.2) mg/dL Total Protein (6.3-8.2) g/dL Albumin (3.5-5.0) g/dL Arterial Blood Glucose (75-99) mg/dL Crossmatch 05/02/24 05/02/24 05/02/24 Range/Units 04:00 04:57 06:10 WBC (3.8-10.6) k/uL RBC (4.30-5.90) m/uL Hgb (13.0-17.5) gm/dL Hct (39.0-53.0) % Plt Count (150-450) k/uL Neutrophils # (1.3-7.7) k/uL Lymphocytes # (1.0-4.8) k/uL ABG pO2 (83-108) mmHg ABG Total CO2 (19-24) mmol/L ABG O2 Saturation (94-97) % ABG Glucose (75-99) mg/dL Hemoglobin (13.0-17.5) gm/dL Sodium 131 L (137-145) mmol/L Chloride (98-107) mmol/L Creatinine 0.65 L (0.66-1.25) mg/dL Glucose 115 H (74-99) mg/dL POC Glucose (mg/dL) 121 H 122 H (70-110) mg/dL Calcium (8.4-10.2) mg/dL Total Protein 4.9 L (6.3-8.2) g/dL Albumin 3.0 L (3.5-5.0) g/dL Arterial Blood Glucose (75-99) mg/dL Crossmatch 05/02/24 05/02/24 05/02/24 Range/Units 06:49 08:17 09:04 WBC (3.8-10.6) k/uL RBC (4.30-5.90) m/uL Hgb (13.0-17.5) gm/dL Hct (39.0-53.0) % Plt Count (150-450) k/uL Neutrophils # (1.3-7.7) k/uL Lymphocytes # (1.0-4.8) k/uL ABG pO2 (83-108) mmHg ABG Total CO2 (19-24) mmol/L ABG O2 Saturation (94-97) % ABG Glucose (75-99) mg/dL Hemoglobin (13.0-17.5) gm/dL Sodium (137-145) mmol/L Chloride (98-107) mmol/L Creatinine (0.66-1.25) mg/dL Glucose (74-99) mg/dL POC Glucose (mg/dL) 131 H 154 H 137 H (70-110) mg/dL Calcium (8.4-10.2) mg/dL Total Protein (6.3-8.2) g/dL Albumin (3.5-5.0) g/dL Arterial Blood Glucose (75-99) mg/dL Crossmatch 05/02/24 05/02/24 Range/Units 10:12 11:14 WBC (3.8-10.6) k/uL RBC (4.30-5.90) m/uL Hgb (13.0-17.5) gm/dL Hct (39.0-53.0) % Plt Count (150-450) k/uL Neutrophils # (1.3-7.7) k/uL Lymphocytes # (1.0-4.8) k/uL ABG pO2 (83-108) mmHg ABG Total CO2 (19-24) mmol/L ABG O2 Saturation (94-97) % ABG Glucose (75-99) mg/dL Hemoglobin (13.0-17.5) gm/dL Sodium (137-145) mmol/L Chloride (98-107) mmol/L Creatinine (0.66-1.25) mg/dL Glucose (74-99) mg/dL POC Glucose (mg/dL) 131 H 124 H (70-110) mg/dL Calcium (8.4-10.2) mg/dL Total Protein (6.3-8.2) g/dL Albumin (3.5-5.0) g/dL Arterial Blood Glucose (75-99) mg/dL Crossmatch Assessment and Plan Assessment: Acute ST segment elevation myocardial infarction severe triple-vessel coronary artery disease. Status post off-pump CABG x 4 with sequential GERARD to the proximal and mid LAD, saphenous vein graft to right coronary artery, left radial artery graft to first obtuse marginal coronary artery. Occlusion of left atrial appendage with 35 mm AtriCure clip. Left greater saphenous vein harvest from ankle to knee using endovascular harvest technique. Maribel of the left radial artery using endovascular harvest technique. 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 Number of minutes spent on the visit: 10.
--- NOTE | 2024-05-02 12:17 | CDI ---
Documentation Clarification Form Date: 05/02/2024 11:23:37 AM From: Coni Bingham RN, CCDS Phone: [phone] Admit Date: 04/28/2024 07:00:00 PM Patient Name: Lui Trevino Visit Number: [id number] Discharge Date: ATTENTION: The Clinical Documentation Specialists (CDI) and [facility] Coding Staff appreciate your assistance in clarifying documentation. Please respond to the clarification below the line at the bottom and electronically sign. The CDI & [facility] Coding staff will review the response and follow-up if needed. Please note: Queries are made part of the Legal Health Record. If you have any questions, please contact the author of this message via ITS. Doctor/Provider: Meenu Aguilar Postoperative atelectasis is documented the progress note on 05/01/24 and patient had Off-pump CABG x 4, on 05/01/24. Additional clarification is requested regarding the relationship, if any, that exists between the diagnosis and the procedure. Patients Admitting Diagnosis: Coronary artery disease, unstable angina, subendocardial infarction Post-Operative Diagnosis: same Procedure performed: Off-pump CABG x 4 with sequential GERARD to the proximal and mid LAD, saphenous vein graft to right coronary artery, left radial artery graft to first obtuse marginal coronary artery. Occlusion of left atrial appendage with 35 mm AtriCure clip-Left greater saphenous vein harvest from ankle to knee. [place] of the left radial artery. History/Risk Factors: DVT), GERD/Reflux, Hyperlipidemia, Tipton's esophagitis, Multiple PEs, Factor V deficiency Clinical Indicators: Present with chest and ruled in for Triple-vessel coronary artery disease, unstable angina, STEMI/subendocardial infarction this admission per heart Cath on 04/28. 05/01 had Off-pump CABG x 4. 05/01 CXR: * Left midlung airspace opacities correlate for atelectasis. Treatment: ICU Monitoring per protocol CABG Ventilator support, monitoring per pulmonary DuoNeb 3 ML inhalation RT-QID What relationship, if any, exists between the diagnosis of postoperative atelectasis and the procedure? [ ] Postoperative atelectasis is a complication of surgical procedure [x ] Postoperative atelectasis is an expected outcome of the surgical procedure [ ] Postoperative atelectasis is related to patients co-morbid condition(s) of [insert co-morbid dxs] & not a complication of the procedure [ ] Postoperative atelectasis has been ruled out [ ] Other please specify ____ [ ] Unable to determine (Template Last Revised: September 2020) MTDD
[2024-05-02 12:40] LABS: Glucose,Whole Blood 131 mg/dL (70-110)
[2024-05-02 13:21] LABS: Glucose,Whole Blood 135 mg/dL (70-110)
[2024-05-02 14:21] LABS: Glucose,Whole Blood 138 mg/dL (70-110)
[2024-05-02] MEDS: methocarbamoL 500 MG TAB PO PRN (14:57)
--- NOTE | 2024-05-02 15:35 | P.PN ---
Progress Note - Text Progress Note Date: 05/02/24 Chief Complaint: Chest pressure Pleasant 68-year-old patient follows with Dr. Bolivar Vizcaino. No prior history of any coronary artery disease. Patient started off at home with having right- sided chest pressure. Lasted about 20 minutes. Got a bit better then again got worse. EMS was called. Starting having more chest pressure. Weak and tired. When EMS arrived they did EKG patient was found to have ST elevation SC. Was given nitro. Still having chest pain when patient got into the ER. Patient then taken to the Oncology Physician yesterday evening by Dr. Turcios from cardiology. Was found to have calcified coronary arteries, severe stenosis of the proximal mid LAD. And also severe stenosis of proximal left circumflex obtuse marginal branch 1 and 2. And significant disease of the RCA. Patient moved to the ICU. Cardiothoracic surgery was consulted. at the bedside. April 30: ICU. Had right upper chest pressure this morning. Nitropaste placed. Plan for coronary bypass tomorrow. On IV heparin. at the bedside. May 01: ICU. Patient's status post coronary bypass earlier today. On the ventilator intubated. FiO2 60 PEEP of 5. Drips include IV propofol and nitroglycerin. 2 chest tubes. May 02: ICU. Up in a chair. Last night had 6-7 beats of V. tach. Insulin drip. Sinus rhythm. On clear liquids. No bowel movement. Walked about 160 feet in the hallway. 2 L nasal cannula. Active Medications Acetaminophen (Acetaminophen Tab 325 Mg Tab) 650 mg PO Q4HR PRN PRN Reason: Fever And/ Or Mild Pain (1-3) Albuterol/Ipratropium (Ipratropium-Albuterol 3 Ml Neb) 3 ml INHALATION RT-Q2H PRN PRN Reason: Shortness Of Breath Or Wheezing Albuterol/Ipratropium (Ipratropium-Albuterol 3 Ml Neb) 3 ml INHALATION RT-QID [facility] Last Admin: 05/02/24 15:19 Dose: 3 ml Amlodipine Besylate (Amlodipine 2.5 Mg Tab) 2.5 mg PO DAILY [facility] Last Admin: 05/02/24 09:47 Dose: 2.5 mg Aspirin (Aspirin 325 Mg Tab) 325 mg PO DAILY [facility] Last Admin: 05/02/24 08:29 Dose: 325 mg Atorvastatin Calcium (Atorvastatin 40 Mg Tab) 40 mg PO DAILY [facility] Last Admin: 05/02/24 08:28 Dose: 40 mg Benzocaine/Menthol (Benzocaine/Menthol Lozeng 1 Each Lozenge) 1 each MUCOUS MEM Q2H PRN PRN Reason: Sore Throat Bisacodyl (Bisacodyl 10 Mg Supp) 10 mg RECTAL DAILY PRN PRN Reason: Constipation Clopidogrel Bisulfate (Clopidogrel 75 Mg Tab) 75 mg PO DAILY [facility] Last Admin: 05/02/24 08:28 Dose: 75 mg Dextrose/Water (Dextrose 50% Syringe 50 Ml) 25 ml IVP PER PROTOCOL PRN; Protocol PRN Reason: Hypoglycemia Dextrose/Water (Dextrose 50% Syringe 50 Ml) 50 ml IVP PER PROTOCOL PRN; Protocol PRN Reason: Hypoglycemia Heparin Sodium (Porcine) (Heparin Sodium,Porcine 5,000 Unit/Ml 1 Ml Vial) 5,000 unit SQ Q8HR [facility] Last Admin: 05/02/24 08:28 Dose: 5,000 unit Hydralazine HCl (Hydralazine Hcl 20 Mg/Ml 1 Ml Vial) 10 mg IVP Q1H PRN PRN Reason: Blood Pressure - High Amiodarone HCl 150 mg/ (Dextrose/Water) 103 mls @ 618 mls/hr IV .Q10M PRN; Protocol PRN Reason: A.FIB/FLUTTER Amiodarone HCl 360 mg/ (Dextrose/Water) 207.2 mls @ 34.533 mls/hr IV .Q6H PRN; Protocol PRN Reason: A.FIB/FLUTTER Amiodarone HCl 450 mg/ (Dextrose/Water) 250 mls @ 16.667 mls/hr IV .Q15H PRN; Protocol PRN Reason: A.FIB/FLUTTER Insulin Human Regular 100 unit (/ Sodium Chloride) 101 mls @ 0 mls/hr IV .Q0M LUIGI; Protocol Last Titration: 05/02/24 09:04 Dose: 1 units/hr, 1.01 mls/hr Sodium Chloride (Saline 0.9%) 1,000 mls @ 30 mls/hr IV .Q24H [facility] Last Admin: 05/02/24 10:24 Dose: 30 mls/hr Ketorolac Tromethamine (Ketorolac 15 Mg/Ml 1 Ml Vial) 15 mg IVP Q6HR [facility] Stop: 05/07/24 06:45 Last Admin: 05/02/24 12:45 Dose: 15 mg Magnesium Hydroxide (Magnesium Hydroxide 2,400 Mg/30 Ml Cup) 2,400 mg PO BID PRN PRN Reason: Constipation Methocarbamol (Methocarbamol 500 Mg Tab) 500 mg PO QID PRN PRN Reason: Muscle Spasm Last Admin: 05/02/24 14:57 Dose: 500 mg Metoclopramide HCl (Metoclopramide 5 Mg/Ml 2 Ml Vial) 10 mg IVP Q4H PRN PRN Reason: Nausea And Vomiting Metoprolol Tartrate (Metoprolol Tartrate 12.5 Mg Tab) 12.5 mg PO BID [facility] Last Admin: 05/02/24 08:28 Dose: 12.5 mg Miscellaneous Information (Magnesium Replacement Protocol 1 Each Misc) 1 each MISCELLANE DAILY PRN; Protocol PRN Reason: Per Protocol Miscellaneous Information (Potassium Replacement Protocol 1 Each Misc) 1 each MISCELLANE DAILY PRN; Protocol PRN Reason: Per Protocol Multivitamins (Multivitamins, Thera 1 Each Tab) 1 each PO DAILY [facility] Last Admin: 05/02/24 08:29 Dose: 1 each Ondansetron HCl (Ondansetron 4 Mg/2 Ml Vial) 4 mg IVP Q6HR PRN PRN Reason: Nausea And Vomiting Pantoprazole Sodium (Pantoprazole 40 Mg Tablet) 40 mg PO AC-BRKFST [facility] Senna/Docusate Sodium (Sennosides-Docusate Sodium 1 Each Tab) 2 each PO HS [facility] Sodium Chloride (Sodium Chloride 0.9% Flush 10 Ml Syringe) 10 ml IV BID [facility] Last Admin: 05/02/24 08:29 Dose: 10 ml Tramadol HCl (Tramadol 50 Mg Tab) 50 mg PO Q4HR PRN PRN Reason: Moderate Pain (Scale 4 to 6) Tramadol HCl (Tramadol 50 Mg Tab) 100 mg PO Q4HR PRN PRN Reason: Severe Pain (Scale 7 to 10) Last Admin: 05/01/24 15:29 Dose: 100 mg Past medical history to include: Prior history of DVT and pulm embolism, GERD, hyperlipidemia, BPH, psoriasis, COV and February 2021, osteoarthritis, Ribeiro's esophagus. Denies any history of CAD. 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 . Non-smoker. Maybe 1 drink on weekends. Occasionally Physical examination: VITAL SIGNS: 63, 12, 13 x 54, 97% room air GENERAL: Up in a chair, a bit tired EYES: Pupils equal. Conjunctiva monae l. HEENT: External appearance of nose and ears normal, oral cavity-endotracheal tube NECK: JVD not raised; masses not palpable. HEART: First and second heart sounds are normal; no edema. LUNGS: Respiratory rate increased l; decreased breath sounds ABDOMEN: Soft, nontender, liver spleen not palpable, no masses palpable. PSYCH: Awake, answering questions appropriately MUSCULOSKELETAL:No Clubbing/cyanosis;muscles-grossly intact INVESTIGATIONS, reviewed in the clinical context: May 02: White count 30.3 hemoglobin 12.1 platelets 190 potassium 4.3 creatinine 0.65 albumin 3.0 May 01: White count 18.3 hemoglobin 12.1 platelets 206 LDL 136 April 29: White count 7.9 hemoglobin 13.1 platelets 236 potassium 4.2 creatinine 0.69 Troponin I 0.118, 0.863 EKG reported by the EMS: ST elevation. Carotid Doppler: No significant stenosis 2D echocardiogram: [place] hypokinetic. Moderately reduced global LV function EF 35 to 40%. Assessment plan: -Coronary artery bypass x 4 occlusion of left atrial appendage with AtriCure clip. [May 01, 2024-Dr. Lawson] -Acute respiratory failure with ventilator support: Status post -Acute non-ST elevation myocardial infarction. -Postinfarct angina-resolved -Acute postprocedure blood loss anemia expected from surgery Add ferrous sulfate -Triple-vessel coronary artery disease per cardiac catheterization: Status post CABG Aspirin. Controlled. Plavix. Lopressor. -Essential hypertension Lopressor 12.5 mg twice daily -Hyperlipidemia Lipitor 80 mg nightly -Mild leukocytosis, reactive. No clinical evidence of infection Care was discussed with patient . Add ferrous sulfate. Past Medical History Past Medical History: Coronary Artery Disease (CAD), Chest Pain / Angina, Deep Vein Thrombosis (DVT), GERD/Reflux, Hyperlipidemia, Myocardial Infarction (SC), Prostate Disorder, Pulmonary Embolus (PE), Skin Disorder Additional Past Medical History / Comment(s): psoriasis ( wrist and elbows both arms), had COVID 03/2021. 08/2019 blood clot in legs and lung . arthritis in hands, History of PE; Ribeiro's esophagitis History of Any Multi-Drug Resistant Organisms: None Reported Past Surgical History: Orthopedic Surgery Additional Past Surgical History / Comment(s): bl knee replacement, rt shoulder surgery after fx, EGD 07/26/21 most prostate removed no cancer Past Anesthesia/Blood Transfusion Reactions: Previous Problems w/ Anesthesia, Postoperative Nausea & Vomiting (PONV) Additional Past Anesthesia/Blood Transfusion Reaction / Comment(s): diff swallowing after EGD,ribeiro esophagus. no blood transfusions Past Psychological History: No Psychological Hx Reported Smoking Status: Never smoker Past Alcohol Use History: Rare Additional Past Alcohol Use History / Comment(s): 1 drink occasionally on the weekends Past Drug Use History: None Reported
[2024-05-02 16:11] LABS: Glucose,Whole Blood 130 mg/dL (70-110)
--- NOTE | 2024-05-02 16:19 | P.PN ---
Subjective Progress Note Date: 05/02/24 History of Present Illness: The patient is a 68-year-old male with a prior history of DVT and pulmonary em bolism in 2019, maintained on Eliquis, history of hyperlipidemia who presented with symptoms of chest discomfort. He had an episode of chest discomfort to the right side of the chest that is new to him with no other symptoms of dyspnea or dizziness. Initial EKG by EMS was normal subsequent EKG showed ST segment elevation in the lateral precordial leads and upon arrival to the emergency room his ST segment normalized and he was pain-free. He has no prior similar symptoms and he is quite active physically without any associated chest discomfort, dizziness or palpitations. He has no prior history of myocardial infarction, heart failure or arrhythmia. He has no history of diabetes or hypertension, he is a non-smoker. Medications: Eliquis and Protonix 04/29 Patient seen and examined. Patient had approximately 30 minutes of chest pain however improved with aspirin, nitro and by the time he was taken to Assembling Inspector was not having any further pain. Catheterization showed multivessel CAD with recommendations for bypass. Preoperative workup has begun. He denies any further chest pain. Mildly bradycardic on metoprolol. Remains on heparin drip. Blood work from this morning pending. 04/30 Patient seen and examined. Patient had echocardiogram performed which showed left ventricular ejection fraction 35% with apical hypokinesis. He is being evaluated for likely bypass surgery tomorrow. He did start to have chest discomfort approximately 8:00 and his nitroglycerin patch was changed. We will give additional nitro and he remains on a heparin drip. EKG pending. May 02, 2024 Postop day 1 off-pump CABG x 4. Patient seen and examined at bedside this a.m. Sitting in the recliner. Currently sinus rhythm, hemodynamically stable. Not requiring any inotropes. Last night required Cleviprex. Currently on Cardizem. Mediastinal and left chest tube in place. On exam Alert oriented, not in acute distress Lungs are clear to auscultate, diminished breath sounds due to poor inspiratory effort, on 3 L oxygen S1-S2 audible, regular pulses, no significant murmurs appreciated, sternum stable, Abdominal soft and nondistended No significant swelling in bilateral lower extremity Impression CAD status post CABG x 4, Atrial clip ligation Ischemic cardiomyopathy EF 35 to 40% Dyslipidemia [place]on's esophagus Left lower extremity DVT and PE in 2019 Factor V deficiency Plan Continue aspirin, Plavix, statin, beta-alexandr Continue supportive care Monitor telemetry Will continue to follow Objective - Vital Signs Vital signs: Vital Signs Temp 98.6 F 05/02/24 16:00 Pulse 71 05/02/24 16:00 Resp 16 05/02/24 16:00 BP 113/54 05/02/24 16:00 Pulse Ox 93 L 05/02/24 16:00 FiO2 45 05/01/24 20:00 Intake & Output 05/01/24 05/02/24 05/02/24 18:59 06:59 18:59 Intake Total 136.478 2585.955 1059.601 Output Total 2910 1990 505 Balance -2109.871 -426.045 554.601 Weight 94.6 kg 94.6 kg Intake: IV 641.5 915.0 657 ACETAMINOPHEN IV (For NPO 100 100 ) 1,000 mg In Empty Bag 1 bag @ 400 mls/hr IVPB Q6HR [facility] Rx#:[id number] CO/CI 90 130 Magnesium Sulfate-D5w Pmx 100 1 gm In Dextrose/Water 1 100ml.bag @ 100 mls/hr IVPB ONCE ONE Rx#: [id number] Nitroglycerin-D5w Pmx 50 7.5 18.0 mg In Dextrose/Water 1 250ml.bag @ 5 MCG/MIN 1.5 mls/hr IV .Q24H [facility] Rx#: [id number] Sodium Chloride 0.9% 1, 0 000 ml @ 20 mls/hr IV . Q24H [facility] Rx#:[id number] Sodium Chloride 0.9% 1, 245 650 450 000 ml @ 30 mls/hr IV . Q24H [facility] Rx#:[id number] ceFAZolin 2 gm In Sodium 50 50 Chloride 0.9% 50 ml @ 100 mls/hr IVPB Q8HR [facility] Rx# :[id number] pressure bags 45 117 57 Intake, IV Titration 98.629 448.955 2.601 Amount ACETAMINOPHEN IV (For NPO 100 ) 1,000 mg In Empty Bag 1 bag @ 400 mls/hr IVPB Q6HR [facility] Rx#:[id number] Albumin Human 5% 250 ml 250 In Empty Bag 1 bag @ 250 mls/hr IVPB Q1HR PRN Rx#: [id number] Clevidipine Butyrate 25 12.000 41.733 mg In Empty Bag 1 bag @ 1 MG/HR 2 mls/hr IV .Q24H REPLACED BY [facility] Rx#:[id number] Dexmedetomidine/0.9% NaCl 27.218 (Pmx) 400 mcg In Empty Bag 1 bag @ Titrate IV . Q0M REPLACED BY [facility] Rx#:[id number] Insulin Regular 100 unit 4.782 7.222 2.601 In Sodium Chloride 0.9% 100 ml @ Per Protocol IV .Q0M REPLACED BY [facility] Rx#:[id number] ceFAZolin 2 gm In Sodium 50 Chloride 0.9% 50 ml @ 100 mls/hr IVPB ONCE ONE Rx# :[id number] propofoL 1,000 mg In 54.629 Empty Bag 1 bag @ Titrate IV .Q0M REPLACED BY [facility] Rx#: [id number] Oral 200 400 Other 60 Output: Chest Tube Drainage 360 470 190 MS 190 310 100 left pleural 170 160 90 Drainage 20 50 Left Arm 20 50 Urine 1930 1470 315 Estimated Blood Loss 600 Other: Voiding Method Indwelling Catheter Indwelling Catheter Indwelling Catheter ABP, PAP, CO, CI - Last Documented Arterial Blood Pressure 128/50 Pulmonary Artery Pressure 26/8 Cardiac Output 5.1 Cardiac Index 2.4 - Labs CBC & Chem 7: 05/02/24 04:00 05/02/24 04:00 Labs: Abnormal Lab Results - Last 24 Hours (Table) 04/29/24 05/01/24 05/01/24 Range/Units 14:45 16:48 16:49 WBC (3.8-10.6) k/uL RBC (4.30-5.90) m/uL Hgb (13.0-17.5) gm/dL Hct (39.0-53.0) % Neutrophils # (1.3-7.7) k/uL Lymphocytes # (1.0-4.8) k/uL ABG pO2 66 L (83-108) mmHg ABG Total CO2 25 H (19-24) mmol/L ABG O2 Saturation 93.0 L (94-97) % Hemoglobin 12.2 L (13.0-17.5) gm/dL Sodium (137-145) mmol/L Creatinine (0.66-1.25) mg/dL Glucose (74-99) mg/dL POC Glucose (mg/dL) 146 H (70-110) mg/dL Total Protein (6.3-8.2) g/dL Albumin (3.5-5.0) g/dL Crossmatch See Detail 05/01/24 05/01/24 05/01/24 Range/Units 16:49 18:07 19:01 WBC 18.3 H (3.8-10.6) k/uL RBC 4.24 L (4.30-5.90) m/uL Hgb 12.1 L (13.0-17.5) gm/dL Hct 37.2 L (39.0-53.0) % Neutrophils # 16.4 H (1.3-7.7) k/uL Lymphocytes # (1.0-4.8) k/uL ABG pO2 (83-108) mmHg ABG Total CO2 (19-24) mmol/L ABG O2 Saturation (94-97) % Hemoglobin (13.0-17.5) gm/dL Sodium (137-145) mmol/L Creatinine (0.66-1.25) mg/dL Glucose (74-99) mg/dL POC Glucose (mg/dL) 136 H 125 H (70-110) mg/dL Total Protein (6.3-8.2) g/dL Albumin (3.5-5.0) g/dL Crossmatch 05/01/24 05/01/24 05/01/24 Range/Units 20:09 20:15 21:08 WBC 16.8 H (3.8-10.6) k/uL RBC 4.20 L (4.30-5.90) m/uL Hgb 12.1 L (13.0-17.5) gm/dL Hct 36.9 L (39.0-53.0) % Neutrophils # 15.7 H (1.3-7.7) k/uL Lymphocytes # 0.3 L (1.0-4.8) k/uL ABG pO2 (83-108) mmHg ABG Total CO2 (19-24) mmol/L ABG O2 Saturation (94-97) % Hemoglobin (13.0-17.5) gm/dL Sodium (137-145) mmol/L Creatinine (0.66-1.25) mg/dL Glucose (74-99) mg/dL POC Glucose (mg/dL) 118 H 129 H (70-110) mg/dL Total Protein (6.3-8.2) g/dL Albumin (3.5-5.0) g/dL Crossmatch 05/01/24 05/01/24 05/02/24 Range/Units 22:12 23:04 00:00 WBC (3.8-10.6) k/uL RBC (4.30-5.90) m/uL Hgb (13.0-17.5) gm/dL Hct (39.0-53.0) % Neutrophils # (1.3-7.7) k/uL Lymphocytes # (1.0-4.8) k/uL ABG pO2 (83-108) mmHg ABG Total CO2 (19-24) mmol/L ABG O2 Saturation (94-97) % Hemoglobin (13.0-17.5) gm/dL Sodium (137-145) mmol/L Creatinine (0.66-1.25) mg/dL Glucose (74-99) mg/dL POC Glucose (mg/dL) 118 H 114 H 117 H (70-110) mg/dL Total Protein (6.3-8.2) g/dL Albumin (3.5-5.0) g/dL Crossmatch 05/02/24 05/02/24 05/02/24 Range/Units 01:02 02:06 03:02 WBC (3.8-10.6) k/uL RBC (4.30-5.90) m/uL Hgb (13.0-17.5) gm/dL Hct (39.0-53.0) % Neutrophils # (1.3-7.7) k/uL Lymphocytes # (1.0-4.8) k/uL ABG pO2 (83-108) mmHg ABG Total CO2 (19-24) mmol/L ABG O2 Saturation (94-97) % Hemoglobin (13.0-17.5) gm/dL Sodium (137-145) mmol/L Creatinine (0.66-1.25) mg/dL Glucose (74-99) mg/dL POC Glucose (mg/dL) 120 H 120 H 116 H (70-110) mg/dL Total Protein (6.3-8.2) g/dL Albumin (3.5-5.0) g/dL Crossmatch 05/02/24 05/02/24 05/02/24 Range/Units 03:58 04:00 04:00 WBC 13.3 H (3.8-10.6) k/uL RBC 4.14 L (4.30-5.90) m/uL Hgb 12.1 L (13.0-17.5) gm/dL Hct 35.2 L (39.0-53.0) % Neutrophils # 11.6 H (1.3-7.7) k/uL Lymphocytes # 0.9 L (1.0-4.8) k/uL ABG pO2 (83-108) mmHg ABG Total CO2 (19-24) mmol/L ABG O2 Saturation (94-97) % Hemoglobin (13.0-17.5) gm/dL Sodium 131 L (137-145) mmol/L Creatinine 0.65 L (0.66-1.25) mg/dL Glucose 115 H (74-99) mg/dL POC Glucose (mg/dL) 126 H (70-110) mg/dL Total Protein 4.9 L (6.3-8.2) g/dL Albumin 3.0 L (3.5-5.0) g/dL Crossmatch 05/02/24 05/02/24 05/02/24 Range/Units 04:57 06:10 06:49 WBC (3.8-10.6) k/uL RBC (4.30-5.90) m/uL Hgb (13.0-17.5) gm/dL Hct (39.0-53.0) % Neutrophils # (1.3-7.7) k/uL Lymphocytes # (1.0-4.8) k/uL ABG pO2 (83-108) mmHg ABG Total CO2 (19-24) mmol/L ABG O2 Saturation (94-97) % Hemoglobin (13.0-17.5) gm/dL Sodium (137-145) mmol/L Creatinine (0.66-1.25) mg/dL Glucose (74-99) mg/dL POC Glucose (mg/dL) 121 H 122 H 131 H (70-110) mg/dL Total Protein (6.3-8.2) g/dL Albumin (3.5-5.0) g/dL Crossmatch 05/02/24 05/02/24 05/02/24 Range/Units 08:17 09:04 10:12 WBC (3.8-10.6) k/uL RBC (4.30-5.90) m/uL Hgb (13.0-17.5) gm/dL Hct (39.0-53.0) % Neutrophils # (1.3-7.7) k/uL Lymphocytes # (1.0-4.8) k/uL ABG pO2 (83-108) mmHg ABG Total CO2 (19-24) mmol/L ABG O2 Saturation (94-97) % Hemoglobin (13.0-17.5) gm/dL Sodium (137-145) mmol/L Creatinine (0.66-1.25) mg/dL Glucose (74-99) mg/dL POC Glucose (mg/dL) 154 H 137 H 131 H (70-110) mg/dL Total Protein (6.3-8.2) g/dL Albumin (3.5-5.0) g/dL Crossmatch 05/02/24 05/02/24 05/02/24 Range/Units 11:14 12:38 13:20 WBC (3.8-10.6) k/uL RBC (4.30-5.90) m/uL Hgb (13.0-17.5) gm/dL Hct (39.0-53.0) % Neutrophils # (1.3-7.7) k/uL Lymphocytes # (1.0-4.8) k/uL ABG pO2 (83-108) mmHg ABG Total CO2 (19-24) mmol/L ABG O2 Saturation (94-97) % Hemoglobin (13.0-17.5) gm/dL Sodium (137-145) mmol/L Creatinine (0.66-1.25) mg/dL Glucose (74-99) mg/dL POC Glucose (mg/dL) 124 H 131 H 135 H (70-110) mg/dL Total Protein (6.3-8.2) g/dL Albumin (3.5-5.0) g/dL Crossmatch 05/02/24 05/02/24 Range/Units 14:20 16:09 WBC (3.8-10.6) k/uL RBC (4.30-5.90) m/uL Hgb (13.0-17.5) gm/dL Hct (39.0-53.0) % Neutrophils # (1.3-7.7) k/uL Lymphocytes # (1.0-4.8) k/uL ABG pO2 (83-108) mmHg ABG Total CO2 (19-24) mmol/L ABG O2 Saturation (94-97) % Hemoglobin (13.0-17.5) gm/dL Sodium (137-145) mmol/L Creatinine (0.66-1.25) mg/dL Glucose (74-99) mg/dL POC Glucose (mg/dL) 138 H 130 H (70-110) mg/dL Total Protein (6.3-8.2) g/dL Albumin (3.5-5.0) g/dL Crossmatch
[2024-05-02 18:07] LABS: Glucose,Whole Blood 113 mg/dL (70-110)
[2024-05-02] MEDS: SENNOSIDES-DOCUSATE SODIUM 1 EACH TAB PO SCH (20:02)
[2024-05-02 21:06] LABS: Glucose,Whole Blood 131 mg/dL (70-110)
[2024-05-02 23:08] LABS: Glucose,Whole Blood 107 mg/dL (70-110)
[2024-05-02] MEDS: ACETAMINOPHEN TAB 325 MG TAB PO PRN (23:11)
[2024-05-03 01:06] LABS: Glucose,Whole Blood 117 mg/dL (70-110)
[2024-05-03 03:11] LABS: Glucose,Whole Blood 133 mg/dL (70-110)
[2024-05-03 05:09] LABS: Glucose,Whole Blood 95 mg/dL (70-110)
[2024-05-03] MEDS: PANTOPRAZOLE 40 MG TABLET PO SCH (05:11)
[2024-05-03 06:29] LABS: Basophils % (A) 0 %; Eosinophils # (A) 0.1 k/uL (0-0.7); Eosinophils % (A) 1 %; HCT 38.1 % (39.0-53.0); HGB 12.6 gm/dL (13.0-17.5); Lymphocytes # (A) 0.9 k/uL (1.0-4.8); Lymphocytes % (A) 8 %; MCH 28.8 pg (25.0-35.0); MCHC 33.1 g/dL (31.0-37.0); MCV 86.9 fL (80.0-100.0); Mean Platelet Volume 8.5; Monocytes # (A) 0.7 k/uL (0-1.0); Monocytes % (A) 7 %; Neutrophils # (A) 9.1 k/uL (1.3-7.7); Neutrophils % (A) 84 %; Platelet Count 135 k/uL (150-450); RBC 4.38 m/uL (4.30-5.90); RDW 13.2 % (11.5-15.5); WBC 10.9 k/uL (3.8-10.6)
[2024-05-03 06:39] LABS: Ionized Calcium 4.8 mg/dL (4.5-5.3)
[2024-05-03 06:42] LABS: ALT 19 U/L (4-49); AST 52 U/L (17-59); African American GFR (CKD) >90 (>60 ml/min/1.73 sqM); Albumin 3.2 g/dL (3.5-5.0); Alkaline Phosphatase 83 U/L (38-126); Anion Gap 4 mmol/L; Blood Urea Nitrogen 13 mg/dL (9-20); Calcium 8.9 mg/dL (8.4-10.2); Carbon Dioxide 23 mmol/L (22-30); Chloride 106 mmol/L (98-107); Glucose 106 mg/dL (74-99); Non-African American GFR(CKD) >90 (>60 ml/min/1.73 sqM); Potassium 4.8 mmol/L (3.5-5.1); Sodium 133 mmol/L (137-145); Total Bilirubin 1.4 mg/dL (0.2-1.3); Total Protein 5.4 g/dL (6.3-8.2)
[2024-05-03 06:58] LABS: Glucose,Whole Blood 112 mg/dL (70-110)
[2024-05-03 07:56] LABS: Glucose,Whole Blood 120 mg/dL (70-110)
[2024-05-03] MEDS: FUROSEMIDE 10 MG/ML 2 ML VIAL IV ONE (09:03)
[2024-05-03] MEDS: METOPROLOL TARTRATE 25 MG TAB PO SCH ×2 (09:03→16:35)
--- NOTE | 2024-05-03 09:10 | XR ---
EXAMINATION TYPE: XR chest 1V portable DATE OF EXAM: 05/03/2024 Comparison: 05/02/2024 Clinical History: 68-year-old male Post Operative Cardiac Surgery Findings: Median sternotomy wires with post-CABG clips. Mediastinal drain. Left-sided chest tube. No appreciabl e pneumothorax. Right IJ sheath remains in place after removal of the [place]-Lilo catheter. Low lung vo lumes with crowded vascular markings. Interstitial density shows slight improvement. Patchy bibasilar opacities persist. Impression: Hypoventilatory changes though with improving pulmonary vascular congestion. Patchy bibasilar opaciti es remain, likely postoperative atelectasis. [facility], , 05/03/2024 9:08 AM
[2024-05-03] MEDS: AMIODARONE 200 MG TAB PO SCH (09:33)
--- NOTE | 2024-05-03 09:47 | P.PN ---
Subjective Progress Note Date: 05/03/24 Principal diagnosis: Triple-vessel coronary artery disease, unstable angina, STEMI/subendocardial infarction this admission. 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 Occlusion of left atrial appendage with 35 mm AtriCure clip. Left greater saphenous vein harvest from ankle to knee using endovascular harvest technique. [place] of the left radial artery using endovascular harvest technique. The patient was seen and examined this morning sitting up in recliner in the intensive care unit in no acute distress. Currently in sinus rhythm, hemodynamically stable, did have short run of VT yesterday which resolved without intervention. Does complain of some postoperative expected pain, controlled on current medication regimen. Otherwise patient is doing well. Currently on room air with oxygen saturation in the high 90s, able to achieve 0591-3944 mL on incentive spirometry. Right internal jugular cordis, mediastinal/left pleural chest tubes present. Patient has ambulated all the way around the ICU hallway without difficulty. Labs, chest x-ray reviewed, chest x- ray does show some atelectasis which is common after open heart surgery. No other new concerns. Objective - Vital Signs Vital signs: Vital Signs Temp 99.0 F 05/03/24 04:00 Pulse 90 05/03/24 08:56 Resp 27 H 05/03/24 07:00 BP 136/65 05/03/24 07:00 Pulse Ox 97 05/03/24 08:42 FiO2 45 05/01/24 20:00 Intake & Output 05/02/24 05/03/24 05/03/24 18:59 06:59 18:59 Intake Total 1174.742 577.077 43 Output Total 605 1030 100 Balance 569.742 -452.923 -57 Weight 94.6 kg 97.7 kg Intake: IV 763 526 43 ACETAMINOPHEN IV (For NPO 100 ) 1,000 mg In Empty Bag 1 bag @ 400 mls/hr IVPB Q6HR LUIGI Rx#:[id number] Sodium Chloride 0.9% 1, 550 490 40 000 ml @ 30 mls/hr IV . Q24H LUIGI Rx#:[id number] ceFAZolin 2 gm In Sodium 50 Chloride 0.9% 50 ml @ 100 mls/hr IVPB Q8HR LUIGI Rx# :[id number] pressure bags 63 36 3 Intake, IV Titration 11.742 1.077 Amount Insulin Regular 100 unit 11.742 1.077 In Sodium Chloride 0.9% 100 ml @ Per Protocol IV .Q0M LUIGI Rx#:[id number] Oral 400 50 Output: Chest Tube Drainage 190 230 60 MS 100 130 40 left pleural 90 100 20 Urine 415 800 40 Other: Voiding Method Indwelling Catheter Indwelling Catheter ABP, PAP, CO, CI - Last Documented Arterial Blood Pressure 128/50 Pulmonary Artery Pressure 26/8 Cardiac Output 5.1 Cardiac Index 2.4 - Exam CONSTITUTIONAL: Appears comfortable, cooperative, no acute distress RESPIRATORY: Lungs sounds diminished in the bases bilaterally. Respirations even, nonlabored. Currently on room air with oxygen saturation 97%. Able to achieve 5579-9829 mL on incentive spirometry. Strong nonproductive cough. CARDIOVASCULAR: S1, S2 present. Regular rate and rhythm, sinus rhythm on telemetry. Sternum stable. Palpable peripheral pulses bilaterally. No edema present. No calf pain or tenderness noted. Heart hugger in place with patient demonstrating appropriate use. Antiembolism stockings, SCDs present. GASTROINTESTINAL: Abdomen soft, nontender, nondistended. Active bowel sounds present 4 quadrants. Tolerating diet. Positive flatus GENITOURINARY: Ruiz present draining clear, yellow urine. Output overnight 45-75 mL per hour, 1215 mL in the last 24 hours INTEGUMENTARY: Skin is warm and dry with evidence of good perfusion. Anterior chest incision well approximated and covered with dry intact dressing. Left lower extremity EVH site well approximated without redness or drainage. Left radial artery harvest site without drainage NEUROLOGIC: Cranial nerves II through XII intact MUSKULOSKELETAL: Able to move all extremities, strength equal bilaterally, gait normal PSYCHIATRIC: Alert and oriented to person place and time, appropriate affect, intact judgment and insight INVASIVE LINES AND TUBES: Mediastinal/left pleural chest tubes present and connected to wall suction, no air leaks present. Mediastinal tube with 90 mL serosanguineous drainage overnight, 300 mL in the last 24 hours. Left pleural chest tube with 80 mL serosanguineous drainage overnight, 150 mL in the last 24 hours. Right internal jugular cordis present - Allied health notes Allied health notes reviewed: nursing - Labs CBC & Chem 7: 05/03/24 05:58 05/03/24 05:58 Labs: Abnormal Lab Results - Last 24 Hours (Table) 05/02/24 05/02/24 05/02/24 Range/Units 09:04 10:12 11:14 WBC (3.8-10.6) k/uL Hgb (13.0-17.5) gm/dL Hct (39.0-53.0) % Plt Count (150-450) k/uL Neutrophils # (1.3-7.7) k/uL Lymphocytes # (1.0-4.8) k/uL Sodium (137-145) mmol/L Glucose (74-99) mg/dL POC Glucose (mg/dL) 137 H 131 H 124 H (70-110) mg/dL Total Bilirubin (0.2-1.3) mg/dL Total Protein (6.3-8.2) g/dL Albumin (3.5-5.0) g/dL 05/02/24 05/02/24 05/02/24 Range/Units 12:38 13:20 14:20 WBC (3.8-10.6) k/uL Hgb (13.0-17.5) gm/dL Hct (39.0-53.0) % Plt Count (150-450) k/uL Neutrophils # (1.3-7.7) k/uL Lymphocytes # (1.0-4.8) k/uL Sodium (137-145) mmol/L Glucose (74-99) mg/dL POC Glucose (mg/dL) 131 H 135 H 138 H (70-110) mg/dL Total Bilirubin (0.2-1.3) mg/dL Total Protein (6.3-8.2) g/dL Albumin (3.5-5.0) g/dL 05/02/24 05/02/24 05/02/24 Range/Units 16:09 18:06 21:04 WBC (3.8-10.6) k/uL Hgb (13.0-17.5) gm/dL Hct (39.0-53.0) % Plt Count (150-450) k/uL Neutrophils # (1.3-7.7) k/uL Lymphocytes # (1.0-4.8) k/uL Sodium (137-145) mmol/L Glucose (74-99) mg/dL POC Glucose (mg/dL) 130 H 113 H 131 H (70-110) mg/dL Total Bilirubin (0.2-1.3) mg/dL Total Protein (6.3-8.2) g/dL Albumin (3.5-5.0) g/dL 05/03/24 05/03/24 05/03/24 Range/Units 01:05 03:10 05:58 WBC 10.9 H (3.8-10.6) k/uL Hgb 12.6 L (13.0-17.5) gm/dL Hct 38.1 L (39.0-53.0) % Plt Count 135 L (150-450) k/uL Neutrophils # 9.1 H (1.3-7.7) k/uL Lymphocytes # 0.9 L (1.0-4.8) k/uL Sodium (137-145) mmol/L Glucose (74-99) mg/dL POC Glucose (mg/dL) 117 H 133 H (70-110) mg/dL Total Bilirubin (0.2-1.3) mg/dL Total Protein (6.3-8.2) g/dL Albumin (3.5-5.0) g/dL 05/03/24 05/03/24 05/03/24 Range/Units 05:58 06:57 07:55 WBC (3.8-10.6) k/uL Hgb (13.0-17.5) gm/dL Hct (39.0-53.0) % Plt Count (150-450) k/uL Neutrophils # (1.3-7.7) k/uL Lymphocytes # (1.0-4.8) k/uL Sodium 133 L (137-145) mmol/L Glucose 106 H (74-99) mg/dL POC Glucose (mg/dL) 112 H 120 H (70-110) mg/dL Total Bilirubin 1.4 H (0.2-1.3) mg/dL Total Protein 5.4 L (6.3-8.2) g/dL Albumin 3.2 L (3.5-5.0) g/dL - Imaging and Cardiology Chest x-ray: report reviewed, image reviewed Assessment and Plan Assessment: Triple-vessel coronary artery disease, unstable angina, STEMI/subendocardial infarction this admission, status post four-vessel off-pump CABG Chest pain, secondary to above Reduced global left ventricular systolic function, EF 35-40% and preoperative TTE, improved/normalized IntraOp History of hyperlipidemia, cholesterol 203, LDL 136 Tipton's esophagitis Left lower extremity DVT and multiple PEs in August 2019 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 Will increase beta-alexandr therapy as tolerated, increased to 25 mg twice daily today. Will restart anticoagulation at discharge Will start oral amiodarone for A-fib prophylaxis, patient has had no atrial fibrillation up to this point, he did have a short run of nonsustained VT yesterday Continue low-dose oral calcium channel alexandr for radial artery spasm prophylaxis Encourage incentive spirometry use 10 times every hour while awake. Br onchodilators per pulmonology Increase activity, ambulate as tolerated. PT/OT/cardiac rehab consulted Will monitor daily labs and x-rays, electrolyte replacement per protocol. Will give Lasix 20 mg IV push today GI/DVT prophylaxis Pain control per current medication regimen Insulin management per internal medicine. Patient is not diagnosed diabetic, hemoglobin A1c 6.4%. Needs tight blood sugar control Discontinue cordis Chest tubes discontinued without incident Discontinue Ruiz catheter, may bladder scan and straight cath for greater than 300 mL residual, will monitor closely as patient needed coud catheter placement in OR Continue to monitor and record strict accurate intake and output Likely will place transfer to 3 S. cardiac stepdown unit this afternoon More recommendations to follow
[2024-05-03 12:21] LABS: Glucose,Whole Blood 112 mg/dL (70-110)
[2024-05-03] MEDS: INSULIN ASPART (NovoLOG) 100 UNIT/ML VIAL SQ SCH (12:32)
[2024-05-03] MEDS: amLODIPine 2.5 MG TAB PO STA (12:38)
[2024-05-03] MEDS: FERROUS SULFATE 325 MG TAB PO SCH (12:38)
--- NOTE | 2024-05-03 12:45 | P.PN ---
Subjective Progress Note Date: 05/03/24 This is a very pleasant 68-year-old male patient with a known history of VTE/PE and factor V deficiency anticoagulated with Eliquis since 2019, gastroesophageal reflux disease, prostate disorder, family history of premature coronary artery disease, non smoker. He presented here to the emergency room yesterday with chest pain. Was found to have a transient ST segment elevation myocardial infarction and had undergone cardiac catheterization last evening that revealed calcified coronary arteries, severe stenosis in the proximal and mid LAD, severe stenosis in the proximal left circumflex and obtuse marginal branch 1 and 2, moderate to significant disease in the mid RCA. He is recommended coronary artery bypass grafting. He is currently on a heparin drip. The plan is for continue to hold his Eliquis and surgery on Wednesday, May 01, 2024. He is seen today in consultation. He is currently sitting up in a chair at the bedside. Awake and alert in no acute distress. Maintaining O2 saturations in the 90s on room air. He is able to pull 3 L on the incentive spirometer. Chest x-ray reveals no acute pulmonary process. CT scan of the chest reveals air lung sparrow. No pulmonary nodule or mass detected. Thoracic aorta is of normal caliber. Cardiogram does revealed impaired left ventricular systolic function with an ejection fraction of 35 to 40%. Apical hypokinesia. White count 7.9. Hemoglobin 13.1. Platelets 236. Sodium 136. Potassium 4.2. Bicarb 25. BUN 21. Creatinine 0.69. Troponin 0.118, 0.863. Hepatitis screen negative. Carotid Dopplers revealed no hemodynamically significant stenosis bilaterally. Patient was evaluated today on 04/30/2024, patient is doing well, sitting at the bedside chair, not in any distress, he is a bit anxious about his surgery which is expected. Patient is considered low risk for surgery, he is hemodynamically stable, in sinus rhythm, on room air, and doing extremely well with incentive spirometry. Patient was seen today on 05/01/2024, patient is now status postOff-pump CABG x 4 with sequential GERARD to the proximal and mid LAD, saphenous vein graft to right coronary artery, left radial artery graft to first obtuse marginal coronary artery. Occlusion of left atrial appendage with 35 mm AtriCure clip. Left greater saphenous vein harvest from ankle to knee using endovascular harvest technique. [place] of the left radial artery using endovascular harvest technique. Postoperative day #0. I saw the patient in the ICU, he is intubated mechanically ventilated, he is now on assist-control rate of 16 tidal volume 550 FiO2 60% he was on 100% earlier and ABG was done on 100% PEEP of 5 ABG showed a pO2 of 265 pCO2 36 pH 7.44. Patient is on multiple drips including Cleviprex at 4 mg/h, nitroglycerin 5 mg/min, and propofol at 50 mcg/kg/min. Hemodynamics are cardiac out of 6.6 cardiac index of 3.1. Pulmonary artery pressure 42/25. Chest x-ray showed postoperative changes and postoperative atelectasis. Endotracheal tube was noted to be about 6 cm above the naseem. Nasogastric tube is under the diaphragm. Tip of the [place] catheter is in proper position. Left thoracotomy tube present, no pneumothorax. Mediastinal tube is in proper position The patient is seen today May 02, 2024 in follow-up in the intensive care unit. He is postoperative day #1. He is currently sitting up in a chair at the bedside. Awake and alert in no acute distress. He is maintaining good O2 saturations in the 90s on 2 L/min per nasal cannula. He remains on insulin drip at 1 unit/h. Normal saline at 50 mL/h. Chest x-ray reveals mild pulmonary vascular congestion and patchy basilar opacities. He is working well with the incentive spirometer. Right internal jugular [place] catheter in place, right radial arterial line in place. Left forearm ZENAIDA drain is present. Salo wrap in place. Salo wraps to the bilateral lower extremities. Cardiac output 5.1. Cardiac index 2.4. PA pressures 33/11. CVP of 5. D. Sodium 131. Potassium 4.3. Bicarb 24. BUN 11. Creatinine 0.65. Glucose 115. He remains on bronchodilators. Receiving albumin. Heparin for DVT prophylaxis. His pain is currently well-controlled. The patient is seen today May 03, 2024 in follow-up in the intensive care unit. Postoperative day #2. He is awake and alert in no acute distress. Sitting up in a chair. Maintaining good O2 saturations in the 90s on room air. Normal saline at KVO. White count 10.9. Hemoglobin 12.6. Platelets 135. Sodium 133. Potassium 4.8. Bicarb 23. BUN 13. Creatinine 0.77. Glucose 106. X-ray reveals improved pulmonary vascular congestion. Patchy basilar opacities. Suspect atelectasis. He is working well with the incentive spirometer. He has been out in the hallway with assistance. Left and mediastinal chest tubes remain in place. No leak noted. Objective - Vital Signs Vital signs: Vital Signs Temp 98.4 F 05/03/24 09:00 Pulse 77 05/03/24 12:31 Resp 24 05/03/24 11:00 BP 130/64 05/03/24 11:00 Pulse Ox 97 05/03/24 11:00 FiO2 45 05/01/24 20:00 Intake & Output 05/02/24 05/03/24 05/03/24 18:59 06:59 18:59 Intake Total 1174.742 577.077 280 Output Total 605 1030 1760 Balance 569.742 -452.923 -1480 Weight 94.6 kg 97.7 kg Intake: IV 763 526 162 ACETAMINOPHEN IV (For NPO 100 ) 1,000 mg In Empty Bag 1 bag @ 400 mls/hr IVPB Q6HR [facility]IGI Rx#:[id number] Sodium Chloride 0.9% 1, 550 490 150 000 ml @ 30 mls/hr IV . Q24H [facility]IGI Rx#:[id number] ceFAZolin 2 gm In Sodium 50 Chloride 0.9% 50 ml @ 100 mls/hr IVPB Q8HR [facility]IGI Rx# :[id number] pressure bags 63 36 12 Intake, IV Titration 11.742 1.077 Amount Insulin Regular 100 unit 11.742 1.077 In Sodium Chloride 0.9% 100 ml @ Per Protocol IV .Q0M LUIGI Rx#:[id number] Oral 400 50 118 Output: Chest Tube Drainage 190 230 60 MS 100 130 40 left pleural 90 100 20 Urine 206 666 6779 Other: Voiding Method Indwelling Catheter Indwelling Catheter ABP, PAP, CO, CI - Last Documented Arterial Blood Pressure 128/50 Pulmonary Artery Pressure 26/8 Cardiac Output 5.1 Cardiac Index 2.4 - Exam GENERAL EXAM: Alert, pleasant 68-year-old male patient, up in a chair, on room air, comfortable in no apparent distress. HEAD: Normocephalic. EYES: Normal reaction of pupils, equal size. NOSE: Clear with pink turbinates. THROAT: No erythema or exudates. NECK: No masses, no JVD. Right internal cordis in place. CHEST: Sternum stable. Dressing dry and intact. Heart hugger in place. Mediastinal and left chest tubes to Pleur-evac and wall suction. LUNGS: Equal air entry with faint crackles in the bilateral bases. CVS: S1 and S2 normal with no audible murmur, regular rhythm. ABDOMEN: No hepatosplenomegaly, normal bowel sounds, no guarding or rigidity. SPINE: No scoliosis or deformity SKIN: No rashes CENTRAL NERVOUS SYSTEM: No focal deficits, tone is normal in all 4 extremities. EXTREMITIES: Salo wraps to the lower extremities. There is no peripheral edema. No clubbing, no cyanosis. Peripheral pulses are intact. - Labs CBC & Chem 7: 05/03/24 05:58 05/03/24 05:58 Labs: Abnormal Lab Results - Last 24 Hours (Table) 05/02/24 05/02/24 05/02/24 Range/Units 12:38 13:20 14:20 WBC (3.8-10.6) k/uL Hgb (13.0-17.5) gm/dL Hct (39.0-53.0) % Plt Count (150-450) k/uL Neutrophils # (1.3-7.7) k/uL Lymphocytes # (1.0-4.8) k/uL Sodium (137-145) mmol/L Glucose (74-99) mg/dL POC Glucose (mg/dL) 131 H 135 H 138 H (70-110) mg/dL Total Bilirubin (0.2-1.3) mg/dL Total Protein (6.3-8.2) g/dL Albumin (3.5-5.0) g/dL 05/02/24 05/02/24 05/02/24 Range/Units 16:09 18:06 21:04 WBC (3.8-10.6) k/uL Hgb (13.0-17.5) gm/dL Hct (39.0-53.0) % Plt Count (150-450) k/uL Neutrophils # (1.3-7.7) k/uL Lymphocytes # (1.0-4.8) k/uL Sodium (137-145) mmol/L Glucose (74-99) mg/dL POC Glucose (mg/dL) 130 H 113 H 131 H (70-110) mg/dL Total Bilirubin (0.2-1.3) mg/dL Total Protein (6.3-8.2) g/dL Albumin (3.5-5.0) g/dL 05/03/24 05/03/24 05/03/24 Range/Units 01:05 03:10 05:58 WBC 10.9 H (3.8-10.6) k/uL Hgb 12.6 L (13.0-17.5) gm/dL Hct 38.1 L (39.0-53.0) % Plt Count 135 L (150-450) k/uL Neutrophils # 9.1 H (1.3-7.7) k/uL Lymphocytes # 0.9 L (1.0-4.8) k/uL Sodium (137-145) mmol/L Glucose (74-99) mg/dL POC Glucose (mg/dL) 117 H 133 H (70-110) mg/dL Total Bilirubin (0.2-1.3) mg/dL Total Protein (6.3-8.2) g/dL Albumin (3.5-5.0) g/dL 05/03/24 05/03/24 05/03/24 Range/Units 05:58 06:57 07:55 WBC (3.8-10.6) k/uL Hgb (13.0-17.5) gm/dL Hct (39.0-53.0) % Plt Count (150-450) k/uL Neutrophils # (1.3-7.7) k/uL Lymphocytes # (1.0-4.8) k/uL Sodium 133 L (137-145) mmol/L Glucose 106 H (74-99) mg/dL POC Glucose (mg/dL) 112 H 120 H (70-110) mg/dL Total Bilirubin 1.4 H (0.2-1.3) mg/dL Total Protein 5.4 L (6.3-8.2) g/dL Albumin 3.2 L (3.5-5.0) g/dL 05/03/24 Range/Units 12:19 WBC (3.8-10.6) k/uL Hgb (13.0-17.5) gm/dL Hct (39.0-53.0) % Plt Count (150-450) k/uL Neutrophils # (1.3-7.7) k/uL Lymphocytes # (1.0-4.8) k/uL Sodium (137-145) mmol/L Glucose (74-99) mg/dL POC Glucose (mg/dL) 112 H (70-110) mg/dL Total Bilirubin (0.2-1.3) mg/dL Total Protein (6.3-8.2) g/dL Albumin (3.5-5.0) g/dL Assessment and Plan Assessment: Acute ST segment elevation myocardial infarction severe triple-vessel coronary artery disease. Status post off-pump CABG x 4 with sequential GERARD to the proximal and mid LAD, saphenous vein graft to right coronary artery, left radial artery graft to first obtuse marginal coronary artery. Occlusion of left atrial appendage with 35 mm AtriCure clip. Left greater saphenous vein harvest from ankle to knee using endovascular harvest technique. [place] of the left radial artery using endovascular harvest technique. Postoperative day #2 History of pulmonary embolism/DVT and factor V deficiency, maintained on Eliquis since 2019, currently on hold History of COVID-19 infection in 2020 History of arthritis Non-smoker History of prostate disorder History of gastroesophageal reflux disease Plan: The patient was seen and evaluated X-ray, labs and medications reviewed Currently stable and on room air Working well with the incentive spirometer Continue bronchodilators Heparin for DVT prophylaxis Increase his activity as tolerated I have personally seen and examined the patient, performed the documentation and the assessment and plan as written. Number of minutes spent on the visit: 10.
[2024-05-03] MEDS: DEXTROSE 5% IN WATER 100 ML with AMIODARONE 150 MG IV PRN (13:08)
[2024-05-03] MEDS: AMIODARONE 360 MG in DEXTROSE 5% IN WATER 200 ML IV PRN (14:21)
--- NOTE | 2024-05-03 17:07 | P.PN ---
Progress Note - Text Progress Note Date: 05/03/24 Chief Complaint: Chest pressure Pleasant 68-year-old patient follows with Dr. Bolivar Vizcaino. No prior history of any coronary artery disease. Patient started off at home with having right- sided chest pressure. Lasted about 20 minutes. Got a bit better then again got worse. EMS was called. Starting having more chest pressure. Weak and tired. When EMS arrived they did EKG patient was found to have ST elevation CT. Was given nitro. Still having chest pain when patient got into the ER. Patient then taken to the [facility] yesterday evening by Dr. Turcios from cardiology. Was found to have calcified coronary arteries, severe stenosis of the proximal mid LAD. And also severe stenosis of proximal left circumflex obtuse marginal branch 1 and 2. And significant disease of the RCA. Patient moved to the ICU. Cardiothoracic surgery was consulted. at the bedside. April 30: ICU. Had right upper chest pressure this morning. Nitropaste placed. Plan for coronary bypass tomorrow. On IV heparin. at the bedside. May 01: ICU. Patient's status post coronary bypass earlier today. On the ventilator intubated. FiO2 60 PEEP of 5. Drips include IV propofol and nitroglycerin. 2 chest tubes. May 02: ICU. Up in a chair. Last night had 6-7 beats of V. tach. Insulin drip. Sinus rhythm. On clear liquids. No bowel movement. Walked about 160 feet in the hallway. 2 L nasal cannula. May 03: ICU. Chest tubes have been out. Eating fair. Passing flatus. No bowel movement. No nausea vomiting. Able to walk in the hallway. Ruiz catheter tube for discontinuation this afternoon. Patient had a run of A-fib this afternoon. On amiodarone. Active Medications Acetaminophen (Acetaminophen Tab 325 Mg Tab) 650 mg PO Q4HR PRN PRN Reason: Fever And/ Or Mild Pain (1-3) Last Admin: 05/02/24 23:11 Dose: 650 mg Albuterol/Ipratropium (Ipratropium-Albuterol 3 Ml Neb) 3 ml INHALATION RT-Q2H PRN PRN Reason: Shortness Of Breath Or Wheezing Albuterol/Ipratropium (Ipratropium-Albuterol 3 Ml Neb) 3 ml INHALATION RT-QID LUIGI Last Admin: 05/03/24 16:22 Dose: 3 ml Amiodarone HCl (Amiodarone 200 Mg Tab) 400 mg PO BID [facility] Amlodipine Besylate (Amlodipine 5 Mg Tab) 5 mg PO DAILY@1200 [facility] Aspirin (Aspirin 325 Mg Tab) 325 mg PO DAILY [facility] Last Admin: 05/03/24 09:03 Dose: 325 mg Atorvastatin Calcium (Atorvastatin 40 Mg Tab) 40 mg PO DAILY [facility] Last Admin: 05/03/24 09:03 Dose: 40 mg Benzocaine/Menthol (Benzocaine/Menthol Lozeng 1 Each Lozenge) 1 each MUCOUS MEM Q2H PRN PRN Reason: Sore Throat Bisacodyl (Bisacodyl 10 Mg Supp) 10 mg RECTAL DAILY PRN PRN Reason: Constipation Clopidogrel Bisulfate (Clopidogrel 75 Mg Tab) 75 mg PO DAILY [facility] Last Admin: 05/03/24 09:03 Dose: 75 mg Dextrose/Water (Dextrose 50% Syringe 50 Ml) 25 ml IVP PER PROTOCOL PRN; Protocol PRN Reason: Hypoglycemia Dextrose/Water (Dextrose 50% Syringe 50 Ml) 50 ml IVP PER PROTOCOL PRN; Protocol PRN Reason: Hypoglycemia Ferrous Sulfate (Ferrous Sulfate 325 Mg Tab) 325 mg PO W/LUNCH [facility] Last Admin: 05/03/24 12:38 Dose: 325 mg Heparin Sodium (Porcine) (Heparin Sodium,Porcine 5,000 Unit/Ml 1 Ml Vial) 5,000 unit SQ Q8HR [facility] Last Admin: 05/03/24 16:35 Dose: 5,000 unit Amiodarone HCl 150 mg/ (Dextrose/Water) 103 mls @ 618 mls/hr IV .Q10M PRN; Protocol PRN Reason: A.FIB/FLUTTER Last Admin: 05/03/24 13:08 Dose: 618 mls/hr Amiodarone HCl 360 mg/ (Dextrose/Water) 207.2 mls @ 34.533 mls/hr IV .Q6H PRN; Protocol PRN Reason: A.FIB/FLUTTER Last Admin: 05/03/24 14:21 Dose: 1 mg/min, 34.533 mls/hr Amiodarone HCl 450 mg/ (Dextrose/Water) 250 mls @ 16.667 mls/hr IV .Q15H PRN; Protocol PRN Reason: A.FIB/FLUTTER Insulin Aspart (Insulin Aspart (Novolog) 100 Unit/Ml Vial) 0 unit SQ ACHS [facility]; Protocol Last Admin: 05/03/24 12:32 Dose: Not Given Ketorolac Tromethamine (Ketorolac 15 Mg/Ml 1 Ml Vial) 15 mg IVP Q6HR [facility] Stop: 05/07/24 06:45 Last Admin: 05/03/24 12:38 Dose: 15 mg Magnesium Hydroxide (Magnesium Hydroxide 2,400 Mg/30 Ml Cup) 2,400 mg PO BID PRN PRN Reason: Constipation Methocarbamol (Methocarbamol 500 Mg Tab) 500 mg PO QID PRN PRN Reason: Muscle Spasm Last Admin: 05/03/24 03:33 Dose: 500 mg Metoclopramide HCl (Metoclopramide 5 Mg/Ml 2 Ml Vial) 10 mg IVP Q4H PRN PRN Reason: Nausea And Vomiting Metoprolol Tartrate (Metoprolol Tartrate 25 Mg Tab) 25 mg PO Q8HR [facility] Last Admin: 05/03/24 16:35 Dose: 25 mg Miscellaneous Information (Magnesium Replacement Protocol 1 Each Misc) 1 each MISCELLANE DAILY PRN; Protocol PRN Reason: Per Protocol Miscellaneous Information (Potassium Replacement Protocol 1 Each Misc) 1 each MISCELLANE DAILY PRN; Protocol PRN Reason: Per Protocol Multivitamins (Multivitamins, Thera 1 Each Tab) 1 each PO DAILY [facility] Last Admin: 05/03/24 09:03 Dose: 1 each Ondansetron HCl (Ondansetron 4 Mg/2 Ml Vial) 4 mg IVP Q6HR PRN PRN Reason: Nausea And Vomiting Pantoprazole Sodium (Pantoprazole 40 Mg Tablet) 40 mg PO AC-BRKFST [facility] Last Admin: 05/03/24 05:11 Dose: 40 mg Senna/Docusate Sodium (Sennosides-Docusate Sodium 1 Each Tab) 2 each PO HS [facility] Last Admin: 05/02/24 20:02 Dose: 2 each Sodium Chloride (Sodium Chloride 0.9% Flush 10 Ml Syringe) 10 ml IV BID [facility] Last Admin: 05/03/24 09:04 Dose: 10 ml Past medical history to include: Prior history of DVT and pulm embolism, GERD, hyperlipidemia, BPH, psoriasis, COVID and February 2021, osteoarthritis, Ribeiro's esophagus. Denies any history of CAD. 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 . Non-smoker. Maybe 1 drink on weekends. Occasionally Physical examination: VITAL SIGNS: 98.2, 72,24, 98 x 55, 95% room air GENERAL: Up in a chair, a bit tired EYES: Pupils equal. Conjunctiva monae l. HEENT: External appearance of nose and ears normal, oral cavity-endotracheal tube NECK: JVD not raised; masses not palpable. HEART: First and second heart sounds are normal; no edema. LUNGS: Respiratory rate increased l; decreased breath sounds ABDOMEN: Soft, nontender, liver spleen not palpable, no masses palpable. PSYCH: Awake, answering questions appropriately MUSCULOSKELETAL:No Clubbing/cyanosis;muscles-grossly intact INVESTIGATIONS, reviewed in the clinical context: May 03: White count 10.9 hemoglobin 12.6 platelets 135 potassium 4.8 creatinine 0.77 May 02: White count 30.3 hemoglobin 12.1 platelets 190 potassium 4.3 creatinine 0.65 albumin 3.0 May 01: White count 18.3 hemoglobin 12.1 platelets 206 LDL 136 April 29: White count 7.9 hemoglobin 13.1 platelets 236 potassium 4.2 creatinine 0.69 Troponin I 0.118, 0.863 EKG reported by the EMS: ST elevation. Carotid Doppler: No significant stenosis 2D echocardiogram: [place] hypokinetic. Moderately reduced global LV function EF 35 to 40%. Assessment plan: -Coronary artery bypass x 4 occlusion of left atrial appendage with AtriCure clip. [May 01, 2024-Dr. Lawson] -Acute respiratory failure with ventilator support: Status post -Acute non-ST elevation myocardial infarction. -Postinfarct angina-resolved -Acute postprocedure blood loss anemia expected from surgery ferrous sulfate -New onset atrial fibrillation IV amiodarone -Triple-vessel coronary artery disease per cardiac catheterization: Status post CABG Aspirin. Controlled. Plavix. Lopressor. -Essential hypertension Lopressor 12.5 mg twice daily -Hyperlipidemia Lipitor 80 mg nightly -Mild leukocytosis, reactive. No clinical evidence of infection . Increase activity. Continue current medications. Past Medical History Past Medical History: Coronary Artery Disease (CAD), Chest Pain / Angina, Deep Vein Thrombosis (DVT), GERD/Reflux, Hyperlipidemia, Myocardial Infarction (CT), Prostate Disorder, Pulmonary Embolus (PE), Skin Disorder Additional Past Medical History / Comment(s): psoriasis ( wrist and elbows both arms), had COVID 03/2021. 08/2019 blood clot in legs and lung . arthritis in hands, History of PE; Ribeiro's esophagitis History of Any Multi-Drug Resistant Organisms: None Reported Past Surgical History: Orthopedic Surgery Additional Past Surgical History / Comment(s): bl knee replacement, rt shoulder surgery after fx, EGD 07/26/21 most prostate removed no cancer Past Anesthesia/Blood Transfusion Reactions: Previous Problems w/ Anesthesia, Postoperative Nausea & Vomiting (PONV) Additional Past Anesthesia/Blood Transfusion Reaction / Comment(s): diff swallowing after EGD,ribeiro esophagus. no blood transfusions Past Psychological History: No Psychological Hx Reported Smoking Status: Never smoker Past Alcohol Use History: Rare Additional Past Alcohol Use History / Comment(s): 1 drink occasionally on the weekends Past Drug Use History: None Reported
[2024-05-03 17:14] LABS: Glucose,Whole Blood 146 mg/dL (70-110)
[2024-05-03 20:21] LABS: Glucose,Whole Blood 134 mg/dL (70-110)
[2024-05-03] MEDS: AMIODARONE 450 MG in DEXTROSE 5% IN WATER 250 ML IV PRN (20:23)
[2024-05-03] MEDS: METOCLOPRAMIDE 5 MG/ML 2 ML VIAL IVP PRN (20:38)
[2024-05-04 06:39] LABS: Glucose,Whole Blood 105 mg/dL (70-110)
[2024-05-04] MEDS: AMIODARONE 200 MG TAB PO SCH (08:54)
[2024-05-04] MEDS: APIXABAN 2.5 MG TABLET PO SCH (08:56)
[2024-05-04] MEDS: ASPIRIN 81 MG PO SCH (08:59)
[2024-05-04 09:00] LABS: Basophils % (A) 0 %; Eosinophils # (A) 0.1 k/uL (0-0.7); Eosinophils % (A) 1 %; HCT 36.1 % (39.0-53.0); HGB 11.6 gm/dL (13.0-17.5); Lymphocytes # (A) 0.7 k/uL (1.0-4.8); Lymphocytes % (A) 8 %; MCH 28.6 pg (25.0-35.0); MCHC 32.2 g/dL (31.0-37.0); MCV 88.8 fL (80.0-100.0); Mean Platelet Volume 7.8; Monocytes # (A) 0.5 k/uL (0-1.0); Monocytes % (A) 5 %; Neutrophils % (A) 85 %; Platelet Count 170 k/uL (150-450); RBC 4.07 m/uL (4.30-5.90); RDW 12.8 % (11.5-15.5); WBC 9.4 k/uL (3.8-10.6)
[2024-05-04 09:18] LABS: ALT 19 U/L (4-49); AST 32 U/L (17-59); African American GFR (CKD) >90 (>60 ml/min/1.73 sqM); Alkaline Phosphatase 57 U/L (38-126); Anion Gap 5 mmol/L; Blood Urea Nitrogen 18 mg/dL (9-20); Carbon Dioxide 26 mmol/L (22-30); Chloride 102 mmol/L (98-107); Glucose 120 mg/dL (74-99); Non-African American GFR(CKD) >90 (>60 ml/min/1.73 sqM); Sodium 133 mmol/L (137-145); Total Bilirubin 0.9 mg/dL (0.2-1.3); Total Protein 5.3 g/dL (6.3-8.2)
--- NOTE | 2024-05-04 09:49 | XR ---
EXAMINATION TYPE: XR chest 2V DATE OF EXAM: 05/04/2024 COMPARISON: 05/03/2024 HISTORY: 68-year-old male status post open heart surgery TECHNIQUE: PA and lateral views FINDINGS: Median sternotomy wires are post-CABG clips. Heart normal size. Interval removal of left-sided chest tube. Removal of the mediastinal drain. No appreciable pneumothorax. Patchy bibasilar opacities remai n along with trace pleural effusions. IMPRESSION: Post-CABG changes. Patchy bibasilar opacities, likely atelectasis, and trace pleural effusions remain . [facility], , 05/04/2024 9:46 AM
--- NOTE | 2024-05-04 10:06 | P.PN ---
Subjective Progress Note Date: 05/04/24 Principal diagnosis: Triple-vessel coronary artery disease, unstable angina, STEMI/subendocardial infarction this admission. 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 Occlusion of left atrial appendage with 35 mm AtriCure clip. Left greater saphenous vein harvest from ankle to knee using endovascular harvest technique. [place] of the left radial artery using endovascular harvest technique. Paroxysmal atrial fibrillation, brief episode, know common occurrence after open heart surgery, currently sinus The patient was seen and examined this morning sitting up in recliner in the intensive care unit in no acute distress. Currently in sinus rhythm, did have a brief episode of rapid afib yesterday, was loaded with amio, converted quickly to sinus, hemodynamically stable. Does complain of some postoperative expected pain, controlled on current medication regimen. Otherwise patient is doing well. Currently on room air with oxygen saturation in the high 90s, able to achieve 1500 mL on incentive spirometry. Patient has ambulated all the way around the ICU hallway several times without difficulty. Labs, chest x-ray reviewed. Anticipate DC to home today, patient feels ready. No other new concerns. Objective - Vital Signs Vital signs: Vital Signs Temp 98.7 F 05/04/24 04:00 Pulse 61 05/04/24 07:00 Resp 15 05/04/24 07:00 BP 126/60 05/04/24 07:00 Pulse Ox 98 05/04/24 07:00 FiO2 45 05/01/24 20:00 Intake & Output 05/03/24 05/04/24 05/04/24 18:59 06:59 18:59 Intake Total 1260 250.004 Output Total 2040 530 Balance -780 -279.996 Weight 95.9 kg Intake: IV 162 200.004 Amiodarone 450 mg In 200.004 Dextrose 5% in Water 250 ml @ 0.5 MG/MIN 16.667 mls/hr IV .Q15H PRN Rx#: [id number] Sodium Chloride 0.9% 1, 150 000 ml @ 30 mls/hr IV . Q24H LUIGI Rx#:[id number] pressure bags 12 Oral 1098 50 Output: Chest Tube Drainage 60 MS 40 left pleural 20 Urine 1980 280 Post Void Residual 250 Other: Voiding Method Indwelling Catheter Toilet Urinal # Voids 1 # Bowel Movements 1 ABP, PAP, CO, CI - Last Documented Arterial Blood Pressure 128/50 Pulmonary Artery Pressure 26/8 Cardiac Output 5.1 Cardiac Index 2.4 - Exam CONSTITUTIONAL: Appears comfortable, cooperative, no acute distress RESPIRATORY: Lungs sounds diminished in the bases bilaterally. Respirations even, nonlabored. Currently on room air with oxygen saturation 96%. Able to achieve 1500 mL on incentive spirometry. Strong nonproductive cough. CARDIOVASCULAR: S1, S2 present. Regular rate and rhythm, sinus rhythm on telemetry. Sternum stable. Palpable peripheral pulses bilaterally. No edema present. No calf pain or tenderness noted. Heart hugger in place with patient demonstrating appropriate use. Antiembolism stockings, SCDs present. GASTROINTESTINAL: Abdomen soft, nontender, nondistended. Active bowel sounds present 4 quadrants. Tolerating diet. Positive bowel movement 05/04 GENITOURINARY: Ruiz dc'd yesterday, patient has voided, output in 24 hours 2260 mL INTEGUMENTARY: Skin is warm and dry with evidence of good perfusion. Anterior chest incision well approximated. Left lower extremity EVH site well approximated without redness or drainage. Left radial artery harvest site without drainage NEUROLOGIC: Cranial nerves II through XII intact MUSKULOSKELETAL: Able to move all extremities, strength equal bilaterally, gait normal PSYCHIATRIC: Alert and oriented to person place and time, appropriate affect, intact judgment and insight - Allied health notes Allied health notes reviewed: nursing - Labs CBC & Chem 7: 05/04/24 08:46 05/04/24 08:46 Labs: Abnormal Lab Results - Last 24 Hours (Table) 05/01/24 05/03/24 05/03/24 Range/Units 11:25 12:19 17:13 ABG pH 7.46 H (7.35-7.45) ABG pCO2 34 L (35-45) mmHg ABG pO2 236 H (83-108) mmHg ABG O2 Saturation 99.2 H (94-97) % ABG Hematocrit 32 L (34.0-46.0) % ABG Glucose 100 H (75-99) mg/dL Hemoglobin 10.4 L (13.0-17.5) gm/dL POC Glucose (mg/dL) 112 H 146 H (70-110) mg/dL Arterial Blood Glucose 100 H (75-99) mg/dL 05/03/24 Range/Units 20:20 ABG pH (7.35-7.45) ABG pCO2 (35-45) mmHg ABG pO2 (83-108) mmHg ABG O2 Saturation (94-97) % ABG Hematocrit (34.0-46.0) % ABG Glucose (75-99) mg/dL Hemoglobin (13.0-17.5) gm/dL POC Glucose (mg/dL) 134 H (70-110) mg/dL Arterial Blood Glucose (75-99) mg/dL - Imaging and Cardiology Chest x-ray: report reviewed, image reviewed Assessment and Plan Assessment: Triple-vessel coronary artery disease, unstable angina, STEMI/subendocardial infarction this admission, status post four-vessel off-pump CABG Chest pain, secondary to above Reduced global left ventricular systolic function, EF 35-40% and preoperative TTE, improved/normalized IntraOp Paroxysmal atrial fibrillation, currently sinus History of hyperlipidemia, cholesterol 203, LDL 136 Tipton's esophagitis Left lower extremity DVT and multiple PEs in August 2019 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 Will restart anticoagulation today Continue oral amiodarone, will taper dose over 3 weeks Continue oral calcium channel alexandr for radial artery spasm prophylaxis Encourage incentive spirometry use 10 times every hour while awake. Bronchodilators per pulmonology Increase activity, ambulate as tolerated. PT/OT/cardiac rehab consulted Will monitor daily labs and x-rays, electrolyte replacement per protocol. No lasix today GI/DVT prophylaxis Pain control per current medication regimen Insulin management per internal medicine Continue to monitor and record strict accurate intake and output Will discharge to home with home care this afternoon More recommendations to follow
[2024-05-04 11:27] LABS: Glucose,Whole Blood 139 mg/dL (70-110)
--- NOTE | 2024-05-04 11:32 | P.PN ---
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 He presented here to the emergency room yesterday with chest pain. Was found to have a transient ST segment elevation myocardial infarction and had undergone cardiac catheterization last evening that revealed calcified coronary arteries, severe stenosis in the proximal and mid LAD, severe stenosis in the proximal left circumflex and obtuse marginal branch 1 and 2, moderate to significant disease in the mid RCA. He is recommended coronary artery bypass grafting. He is currently on a heparin drip. The plan is for continue to hold his Eliquis and surgery on Wednesday, May 01, 2024. He is seen today in consultation. He is currently sitting up in a chair at the bedside. Awake and alert in no acute distress. Maintaining O2 saturations in the 90s on room air. He is able to pull 3 L on the incentive spirometer. Chest x-ray reveals no acute pulmonary process. CT scan of the chest reveals air lung sparrow. No pulmonary nodule or mass detected. Thoracic aorta is of normal caliber. Cardiogram does revealed impaired left ventricular systolic function with an ejection fraction of 35 to 40%. Apical hypokinesia. White count 7.9. Hemoglobin 13.1. Platelets 236. Sodium 136. Potassium 4.2. Bicarb 25. BUN 21. Creatinine 0.69. Troponin 0.118, 0.863. Hepatitis screen negative. Carotid Dopplers revealed no hemodynamically significant stenosis bilaterally. Patient was evaluated today on 04/30/2024, patient is doing well, sitting at the bedside chair, not in any distress, he is a bit anxious about his surgery which is expected. Patient is considered low risk for surgery, he is hemodynamically stable, in sinus rhythm, on room air, and doing extremely well with incentive spirometry. Patient was seen today on 05/01/2024, patient is now status postOff-pump CABG x 4 with sequential GERARD to the proximal and mid LAD, saphenous vein graft to right coronary artery, left radial artery graft to first obtuse marginal coronary artery. Occlusion of left atrial appendage with 35 mm AtriCure clip. Left greater saphenous vein harvest from ankle to knee using endovascular harvest technique. Garrett of the left radial artery using endovascular harvest technique. Postoperative day #0. I saw the patient in the ICU, he is intubated mechanically ventilated, he is now on assist-control rate of 16 tidal volume 550 FiO2 60% he was on 100% earlier and ABG was done on 100% PEEP of 5 ABG showed a pO2 of 265 pCO2 36 pH 7.44. Patient is on multiple drips including Cleviprex at 4 mg/h, nitroglycerin 5 mg/min, and propofol at 50 mcg/kg/min. Hemodynamics are cardiac out of 6.6 cardiac index of 3.1. Pulmonary artery pressure 42/25. Chest x-ray showed postoperative changes and postoperative atelectasis. Endotracheal tube was noted to be about 6 cm above the naseem. Nasogastric tube is under the diaphragm. Tip of the [place] catheter is in proper position. Left thoracotomy tube present, no pneumothorax. Mediastinal tube is in proper position The patient is seen today May 02, 2024 in follow-up in the intensive care unit. He is postoperative day #1. He is currently sitting up in a chair at the bedside. Awake and alert in no acute distress. He is maintaining good O2 saturations in the 90s on 2 L/min per nasal cannula. He remains on insulin drip at 1 unit/h. Normal saline at 50 mL/h. Chest x-ray reveals mild pulmonary vascular congestion and patchy basilar opacities. He is working well with the incentive spirometer. Right internal jugular [place] catheter in place, right radial arterial line in place. Left forearm ZENAIDA drain is present. Salo wrap in place. Salo wraps to the bilateral lower extremities. Cardiac output 5.1. Cardiac index 2.4. PA pressures 33/11. CVP of 5. D. Sodium 131. Potassium 4.3. Bicarb 24. BUN 11. Creatinine 0.65. Glucose 115. He remains on bronchodilators. Receiving albumin. Heparin for DVT prophylaxis. His pain is currently well-controlled. The patient is seen today May 03, 2024 in follow-up in the intensive care unit. Postoperative day #2. He is awake and alert in no acute distress. Sitting up in a chair. Maintaining good O2 saturations in the 90s on room air. Normal saline at KVO. White count 10.9. Hemoglobin 12.6. Platelets 135. Sodium 133. Potassium 4.8. Bicarb 23. BUN 13. Creatinine 0.77. Glucose 106. X-ray reveals improved pulmonary vascular congestion. Patchy basilar opacities. Suspect atelectasis. He is working well with the incentive spirometer. He has been out in the hallway with assistance. Left and mediastinal chest tubes remain in place. No leak noted. The patient is seen today May 04, 2024 in follow-up in the intensive care unit. Postoperative day #3. He is sitting up in a chair. Awake and alert in no acute distress. Maintaining good O2 saturations in the 90s on room air. He had been transition to oral amiodarone. Anticoagulated with Eliquis. Working well with the incentive spirometer. Chest x-ray reveals patchy bibasilar atelectasis with trace effusions. White count 9.4. Hemoglobin 11.6. Platelets 170. Sodium 133. Potassium 4.0. Bicarb 26. BUN 18. Creatinine 0.83. Glucose 120. Objective - Vital Signs Vital signs: Vital Signs Temp 98.8 F 05/04/24 08:11 Pulse 72 05/04/24 09:15 Resp 14 05/04/24 08:11 BP 123/61 05/04/24 08:11 Pulse Ox 96 05/04/24 09:05 FiO2 45 05/01/24 20:00 Intake & Output 05/03/24 05/04/24 05/04/24 18:59 06:59 18:59 Intake Total 1260 250.004 207.2 Output Total 2040 530 300 Balance -780 -279.996 -92.8 Weight 95.9 kg Intake: IV 162 200.004 Amiodarone 450 mg In 200.004 Dextrose 5% in Water 250 ml @ 0.5 MG/MIN 16.667 mls/hr IV .Q15H PRN Rx#: [id number] Sodium Chloride 0.9% 1, 150 000 ml @ 30 mls/hr IV . Q24H [facility] Rx#:[id number] pressure bags 12 Intake, IV Titration 207.2 Amount Amiodarone 360 mg In 207.2 Dextrose 5% in Water 200 ml @ 1 MG/MIN 34.533 mls/ hr IV .Q6H PRN Rx#: [id number] Oral 1098 50 Output: Chest Tube Drainage 60 MS 40 left pleural 20 Urine 1980 280 300 Post Void Residual 250 Other: Voiding Method Indwelling Catheter Toilet Toilet Urinal Urinal # Voids 1 # Bowel Movements 1 ABP, PAP, CO, CI - Last Documented Arterial Blood Pressure 128/50 Pulmonary Artery Pressure 26/8 Cardiac Output 5.1 Cardiac Index 2.4 - Exam GENERAL EXAM: Alert, 68-year-old male patient, up in a chair, on room air, in no apparent distress. HEAD: Normocephalic. EYES: Normal reaction of pupils, equal size. NOSE: Clear with pink turbinates. THROAT: No erythema or exudates. NECK: No masses, no JVD. Right internal cordis in place. CHEST: Sternum stable. Dressing dry and intact. Heart hugger in place. LUNGS: Equal air entry with faint crackles in the bilateral bases. CVS: S1 and S2 normal with no audible murmur, regular rhythm. ABDOMEN: No hepatosplenomegaly, normal bowel sounds, no guarding or rigidity. SPINE: No scoliosis or deformity SKIN: No rashes CENTRAL NERVOUS SYSTEM: No focal deficits, tone is normal in all 4 extremities. EXTREMITIES: Salo wraps to the lower extremities. There is no peripheral edema. No clubbing, no cyanosis. Peripheral pulses are intact. - Labs CBC & Chem 7: 05/04/24 08:46 05/04/24 08:46 Labs: Abnormal Lab Results - Last 24 Hours (Table) 05/01/24 05/03/24 05/03/24 Range/Units 11:25 12:19 17:13 RBC (4.30-5.90) m/uL Hgb (13.0-17.5) gm/dL Hct (39.0-53.0) % Neutrophils # (1.3-7.7) k/uL Lymphocytes # (1.0-4.8) k/uL ABG pH 7.46 H (7.35-7.45) ABG pCO2 34 L (35-45) mmHg ABG pO2 236 H (83-108) mmHg ABG O2 Saturation 99.2 H (94-97) % ABG Hematocrit 32 L (34.0-46.0) % ABG Glucose 100 H (75-99) mg/dL Hemoglobin 10.4 L (13.0-17.5) gm/dL Sodium (137-145) mmol/L Glucose (74-99) mg/dL POC Glucose (mg/dL) 112 H 146 H (70-110) mg/dL Total Protein (6.3-8.2) g/dL Albumin (3.5-5.0) g/dL Arterial Blood Glucose 100 H (75-99) mg/dL 05/03/24 05/04/24 05/04/24 Range/Units 20:20 08:46 08:46 RBC 4.07 L (4.30-5.90) m/uL Hgb 11.6 L (13.0-17.5) gm/dL Hct 36.1 L (39.0-53.0) % Neutrophils # 8.0 H (1.3-7.7) k/uL Lymphocytes # 0.7 L (1.0-4.8) k/uL ABG pH (7.35-7.45) ABG pCO2 (35-45) mmHg ABG pO2 (83-108) mmHg ABG O2 Saturation (94-97) % ABG Hematocrit (34.0-46.0) % ABG Glucose (75-99) mg/dL Hemoglobin (13.0-17.5) gm/dL Sodium 133 L (137-145) mmol/L Glucose 120 H (74-99) mg/dL POC Glucose (mg/dL) 134 H (70-110) mg/dL Total Protein 5.3 L (6.3-8.2) g/dL Albumin 3.0 L (3.5-5.0) g/dL Arterial Blood Glucose (75-99) mg/dL 05/04/24 Range/Units 11:26 RBC (4.30-5.90) m/uL Hgb (13.0-17.5) gm/dL Hct (39.0-53.0) % Neutrophils # (1.3-7.7) k/uL Lymphocytes # (1.0-4.8) k/uL ABG pH (7.35-7.45) ABG pCO2 (35-45) mmHg ABG pO2 (83-108) mmHg ABG O2 Saturation (94-97) % ABG Hematocrit (34.0-46.0) % ABG Glucose (75-99) mg/dL Hemoglobin (13.0-17.5) gm/dL Sodium (137-145) mmol/L Glucose (74-99) mg/dL POC Glucose (mg/dL) 139 H (70-110) mg/dL Total Protein (6.3-8.2) g/dL Albumin (3.5-5.0) g/dL Arterial Blood Glucose (75-99) mg/dL Assessment and Plan Assessment: Acute ST segment elevation myocardial infarction severe triple-vessel coronary artery disease. Status post off-pump CABG x 4 with sequential GERARD to the proximal and mid LAD, saphenous vein graft to right coronary artery, left radial artery graft to first obtuse marginal coronary artery. Occlusion of left atrial appendage with 35 mm AtriCure clip. Left greater saphenous vein harvest from ankle to knee using endovascular harvest technique. Garrett of the left radial artery using endovascular harvest technique. Postoperative day #3 History of pulmonary embolism/DVT and factor V deficiency, maintained on Eliquis since 2019 History of COVID-19 infection in 2020 History of arthritis Non-smoker History of prostate disorder History of gastroesophageal reflux disease Plan: The patient was seen and evaluated Chest x-ray, labs and medications reviewed Stable and on room air Working well with the incentive spirometer Resumed on his home Eliquis Increase his activity as tolerated Home once cleared by CT services I have personally seen and examined the patient, performed the documentation and the assessment and plan as written. Number of minutes spent on the visit: 10.
[2024-05-04 11:43] VITALS: BP 100/55; RESP 16; TEMP 98.7
[2024-05-04] MEDS ORDERED: amLODIPine 5 MG TAB PO SCH (12:00)
[2024-05-04 12:08] VITALS: PULSE 66
--- NOTE | 2024-05-04 13:10 | P.DS ---
Providers Date of admission: 04/28/24 19:00 Expected date of discharge: 05/04/24 Attending physician: Aime Lawson Consults: 04/28/24 18:59 Consult Physician Stat Consulting Provider: Wagner Turcios Consult Reason/Comments: stemi Do you want consulting provider notified?: Already Contacted 04/28/24 20:05 Consult Physician Routine Consulting Provider: Prudencio Sarah Consult Reason/Comments: cabg Do you want consulting provider notified?: Already Contacted 04/29/24 14:19 Consult Physician Routine Consulting Provider: Meenu Aguilar Consult Reason/Comments: pulm clearance Do you want consulting provider notified?: Already Contacted 04/30/24 10:07 Consult to Anesthesia Routine Consulting Provider: Anesthesia,Services Consult Reason/Comments: Cardiac Surgery Pre-Op 05/01/24 13:22 Consult Physician Routine Consulting Provider: Angel Licea Consult Reason/Comments: med mgmt Do you want consulting provider notified?: Already Contacted Primary care physician: Bolivar [facility] Course: FINAL DIAGNOSIS: Triple-vessel coronary artery disease, unstable angina, STEMI/subendocardial infarction this admission Chest pain, secondary to above Reduced global left ventricular systolic function, EF 35-40% and preoperative TTE, improved/normalized IntraOp Paroxysmal atrial fibrillation, currently sinus History of hyperlipidemia, cholesterol 203, LDL 136 Tipton's esophagitis Left lower extremity DVT and multiple PEs in August 2019 with Factor V deficiency maintained on Eliquis outpatient, last dose 04/28 COVID in 2020 Arthritis in both shoulders status post recent steroid injection and history of right shoulder surgery BPH Psoriasis Lifelong non-smoker PRINCIPAL PROCEDURE: Off-pump coronary artery bypass graft x 4 with sequential left internal mammary artery to the proximal and mid left anterior descending artery, saphenous vein graft to right coronary artery, left radial artery graft to first obtuse marginal coronary artery Occlusion of left atrial appendage with 35 mm AtriCure clip Left greater saphenous vein harvest from ankle to knee using endovascular harvest technique [place] of the left radial artery using endovascular harvest technique HISTORY OF PRESENT ILLNESS: This is a 68-year-old gentleman who follows outpatient with Dr. Bolivar Vizcaino for primary care. Apparently at home he was seated reading a book and experienced right sided chest pressure without shortness of breath/nausea/diaphoresis/any other symptomatology. He stated he had never had pain like this before. His called 911, he was instructed to take 4 baby aspirin. Upon arrival of EMS he was given sublingual nitro which he states relieved most of his pain. He was transported to [facility] emergency room for evaluation and treatment. Initial EKG by EMS was normal, subsequent EKG demonstrated ST elevation in the precordial leads. EKGs completed in our emergency room demonstrated resolution of ST elevation. Lab work was unremarkable except WBC 11.9, BUN 27, and troponin 0.118. Patient was ruled in for STEMI and was taken to the [facility] by Dr. Turcios. Heart catheterization revealed ostial LAD stenosis 80%, mid LAD stenosis 99%, distal LAD stenosis 80 to 90%, proximal circumflex stenosis 70% with takeoff of both obtuse marginal branches with 95% stenosis, and mid right coronary artery stenosis 70%. Due to this finding consultation was placed to cardiothoracic surgery for revascularization recommendations. He was recommended to undergo urgent coronary artery bypass surgery. The usual perioperative course was discussed in detail with the patient and his family, all risks and benefits were explained, all questions were answered, and consent was obtained to proceed with surgery. The patient was kept inpatient due to the nature of his disease process. HOSPITAL COURSE: The patient was brought to the preoperative area 05/01/24, prepared in the usual fashion, and subsequently taken to the operating room where Dr. Lawson performed four-vessel off-pump CABG. Upon completion of surgery the patient was transferred to the cardiovascular intensive care unit where he was recovered and monitored hemodynamically. He was extubated, all lines, tubes, and drips were discontinued when appropriate, and transfer orders were placed for 3 S. cardiac stepdown unit, however there was no bed availability and the patient remained on ICU as a stepdown patient until discharge. He did have a very brief episode of atrial fibrillation which converted to sinus rhythm with amiodarone. His oxygen was titrated down, he continued to work with physical and occupational therapy, he was tolerating oral diet, his pain was controlled, and he was ready to be discharged to home with [facility] home care on postoperative day #3. He received written and verbal instruction regarding his medications, activity restrictions, signs and symptoms requiring physician notification, and follow-up appointments. Patient Condition at Discharge: Stable Plan - Discharge Summary New Discharge Prescriptions: New Atorvastatin [Lipitor] 40 mg PO DAILY #30 tab Metoprolol Tartrate [Lopressor] 25 mg PO Q8HR #90 tab amLODIPine [Norvasc] 2.5 mg PO DAILY@1400 #30 tab Sennosides-Docusate Sodium [Senokot-S] 2 each PO HS PRN tab PRN Reason: Constipation Aspirin 81 mg PO DAILY #30 tab Amiodarone [Cordarone] 400 mg PO BID #48 tab Acetaminophen Tab [Tylenol] 650 mg PO Q4HR PRN tab PRN Reason: Fever And/ Or Mild Pain (1-3) Continue Apixaban [Eliquis] 2.5 mg PO BID Multivitamins, Thera [Multivitamin (formulary)] 1 tab PO DAILY Pantoprazole [Protonix] 40 mg PO DAILY #0 Discontinued methylPREDNISolone Dose Pack [Medrol Dose Pack] See Taper PO DIRECTED Discharge Medication List Multivitamins, Thera [Multivitamin (formulary)] 1 tab PO DAILY 07/22/21 [History] Apixaban [Eliquis] 2.5 mg PO BID 04/28/24 [History] Acetaminophen Tab [Tylenol] 650 mg PO Q4HR PRN tab 05/04/24 [Rx] Amiodarone [Cordarone] 400 mg PO BID #48 tab 05/04/24 [Rx] Aspirin 81 mg PO DAILY #30 tab 05/04/24 [Rx] Atorvastatin [Lipitor] 40 mg PO DAILY #30 tab 05/04/24 [Rx] Metoprolol Tartrate [Lopressor] 25 mg PO Q8HR #90 tab 05/04/24 [Rx] Pantoprazole [Protonix] 40 mg PO DAILY #0 05/04/24 [Rx] Sennosides-Docusate Sodium [Senokot-S] 2 each PO HS PRN tab 05/04/24 [Rx] amLODIPine [Norvasc] 2.5 mg PO DAILY@1400 #30 tab 05/04/24 [Rx] Follow up Appointment(s)/Referral(s): Meenu Aguilar MD [STAFF PHYSICIAN] - 05/23/24 2:00 pm Wagner Turcios MD [STAFF PHYSICIAN] - 1 Week (Office will call with appointment per [employer] on 05/04/24) Rehab Rita KRISHNAMURTHY,Cardiac [NON-STAFF] - 4 Weeks (You will receive a phone call in approximately 4-6 weeks for evaluation for cardiac rehab) Aime Lawson MD [STAFF PHYSICIAN] - 05/26/24 2:30 pm Ruth Liu MD [STAFF PHYSICIAN] - 1-2 days Antonio Patino NPC [Nurse Practitioner] - 05/10/24 12:45 pm (You will be seen in the surgeon's office behind the hospital in [facility], [address] Office phone number is ) [facility] Visiting Nurse, [NON-STAFF] - 1-2 Days (You should be seen by RN the day after discharge, then 2-3 times per week until you start cardiac rehab. Physical and Occupational Therapy will also visit at least once, may continue if necessary) Bolivar Vizcaino MD [Primary Care Provider] - 1 Week (Office will call with appointment) Ambulatory/Diagnostic Orders: Complete Blood Count w/diff [LAB.AMB] Time Frame: 3 Days, Location: None Selected Comprehensive Metabolic Panel [LAB.AMB] Time Frame: 3 Days, Location: None Selected Activity/Diet/Wound Care/Special Instructions: DISCHARGE INSTRUCTIONS: 1. No driving for 4 weeks, or until physician gives their ok. 2. The patient should sleep in their own bed, no medical bed needed. 3. Stairs are not an issue. If the bedroom is upstairs, it is advised that the patient go up at night and down in the morning for the first week. Go slowly, using handrail and take 1 step at a time. 4. MIRELLA hose are to be worn for 30 days post surgery or until physician discontinues. 5. Heart hugger is to be worn 100% of the time until physician discontinues.(except when showering) 6. No lifting, pushing, or pulling more than 10 pounds for 12 weeks. The physician will advise of any restriction changes. 7. The patient is expected to continue the prescribed walking program. 8. Continue pain control per as needed orders. 9. Continue with incentive spirometry and splinting/heart hugger until otherwise directed by the physician. 10. Must shower daily using liquid antibacterial soap 11. Routine sternal incision care. No powders, lotions, ointments on incisions. No dressings are necessary on incisions unless they are draining. Dermabond tape is to remain on sternal incision until surgeon follow-up. 12. Please call surgeon/VERIFICATION MANAGER for temp greater than 101 F or purulent drainage from incisions. 13. You should weigh yourself daily, record and bring log with you to follow up appointments. 14. All prescriptions given by surgeon for 30 days. Refills need to be filled through plumber cub/primary care physician. 15. A Red armband has been placed on the patient. It should be worn for 30 days post discharge from surgery and will be removed by the cardiac surgeons. If an ER visit is necessary, please make sure the number on the Red armband is called before going to ER. 16. You have been referred to and are expected to begin Cardiac Rehab in approximately 4-6 weeks. 17. Quitting smoking is the most important step you can take to improve your health. For additional information and assistance to quit smoking, please call the [place] tobacco quit line (3-366-QENM-NOW/ ) or online: [email or web address] SERVICES TO PROVIDE: RN SKILLED HOME CARE SERVICES FOR POST-OP SURGICAL PATIENTS WITH THE FOLLOWING: Coronary Artery Bypass Surgery (CABG), Mitral Valve Replacement/Re pair ( MVR), Aortic Valve Replacement/Repair (AVR) RN TO CONTINUE EDUCATION FROM ``ROAD TO A HEALTH HEART PATIENT EDUCATION MANUAL (GIVEN TO PATIENT IN THE HOSPITAL) MEDICATION RECONCILIATION WITH EDUCATION NEEDED ON FIRST HOME VISIT EMPHASIZE IMPORTANCE OF WEARING BREAST SUPPORT/HEART HUGGER ENCOURAGE USE OF INCENTIVE SPIROMETER 10 X EVERY HOUR WHILE AWAKE ENCOURAGE UTILIZATION OF LOWER EXTREMITY COMPRESSION STOCKINGS/MIRELLA HOSE and ELEVATE LEGS ABOVE LEVEL OF HEART WHILE AT REST. ENCOURAGE AMBULATION 3-5x/day INCREASING TOLERATES, WHILE AVOIDING EXTREMES IN TEMPERATURE FREQUENCY: RN TO OPEN THE PATIENT WITHIN 24 HOURS OF DISCHARGE FROM THE HOSPITAL WITH TELEHEALTH INSTALLED AT [facility] [place], RN TO VISIT 2-3 X A WEEK FOR 4 WEEKS ESTABLISHED BY PATIENT NEEDS. LABORATORY: CBC, CMP TO BE DRAWN ON THE THIRD DAY HOME, (RAN STAT) FAX RESULTS TO [phone]. TELEHEALTH PARAMETERS: WEIGHT: NOTIFY MD OF WEIGHT GAIN OF 2 LBS IN 24 HOURS OR 5 LBS IN ONE WEEK HR: NOTIFY MD OF HR <55 BPM OR HR>100 BPM BP: NOTIFY MD IF BP <90/55 OR BP>140/100 O2 SAT: NOTIFY MD IF PO2<93% ON ROOM AIR SEND TELEHEALTH REPORT TO VISUALIZATION DEVELOPER AND CARDIOVASCULAR SURGEON THE FIRST WEEK OF CARE AND THEN BI-WEEKLY. PLEASE ADDITIONALLY COMMUNICATE ANY ABNORMALS AND NEW FINDINGS TO THE SURGEONS OFFICE.
--- NOTE | 2024-05-04 14:02 | P.PN ---
Progress Note - Text Progress Note Date: 05/04/24 Chief Complaint: Chest pressure Pleasant 68-year-old patient follows with Dr. Bolivar Vizcaino. No prior history of any coronary artery disease. Patient started off at home with having right- sided chest pressure. Lasted about 20 minutes. Got a bit better then again got worse. EMS was called. Starting having more chest pressure. Weak and tired. When EMS arrived they did EKG patient was found to have ST elevation AL. Was given nitro. Still having chest pain when patient got into the ER. Patient then taken to the [facility] yesterday evening by Dr. Turcios from cardiology. Was found to have calcified coronary arteries, severe stenosis of the proximal mid LAD. And also severe stenosis of proximal left circumflex obtuse marginal branch 1 and 2. And significant disease of the RCA. Patient moved to the ICU. Cardiothoracic surgery was consulted. at the bedside. April 30: ICU. Had right upper chest pressure this morning. Nitropaste placed. Plan for coronary bypass tomorrow. On IV heparin. at the bedside. May 01: ICU. Patient's status post coronary bypass earlier today. On the ventilator intubated. FiO2 60 PEEP of 5. Drips include IV propofol and nitroglycerin. 2 chest tubes. May 02: ICU. Up in a chair. Last night had 6-7 beats of V. tach. Insulin drip. Sinus rhythm. On clear liquids. No bowel movement. Walked about 160 feet in the hallway. 2 L nasal cannula. May 03: ICU. Chest tubes have been out. Eating fair. Passing flatus. No bowel movement. No nausea vomiting. Able to walk in the hallway. Ruiz catheter tube for discontinuation this afternoon. Patient had a run of A-fib this afternoon. On amiodarone. May 04: ICU. Doing well. Up and about. Had a bowel movement. Breathing stable. Cardiothoracic team is planning for discharge today. Active Medications Acetaminophen (Acetaminophen Tab 325 Mg Tab) 650 mg PO Q4HR PRN PRN Reason: Fever And/ Or Mild Pain (1-3) Last Admin: 05/02/24 23:11 Dose: 650 mg Albuterol/Ipratropium (Ipratropium-Albuterol 3 Ml Neb) 3 ml INHALATION RT-Q2H PRN PRN Reason: Shortness Of Breath Or Wheezing Albuterol/Ipratropium (Ipratropium-Albuterol 3 Ml Neb) 3 ml INHALATION RT-QID [facility] Last Admin: 05/04/24 11:58 Dose: 3 ml Amiodarone HCl (Amiodarone 200 Mg Tab) 400 mg PO BID [facility] Last Admin: 05/04/24 08:54 Dose: 400 mg Amlodipine Besylate (Amlodipine 2.5 Mg Tab) 2.5 mg PO DAILY@1400 LUIGI Apixaban (Apixaban 2.5 Mg Tablet) 2.5 mg PO BID [facility]; Protocol Last Admin: 05/04/24 08:56 Dose: 2.5 mg Aspirin (Aspirin 81 Mg) 81 mg PO DAILY [facility] Last Admin: 05/04/24 08:59 Dose: 81 mg Atorvastatin Calcium (Atorvastatin 40 Mg Tab) 40 mg PO DAILY [facility] Last Admin: 05/04/24 08:53 Dose: 40 mg Benzocaine/Menthol (Benzocaine/Menthol Lozeng 1 Each Lozenge) 1 each MUCOUS MEM Q2H PRN PRN Reason: Sore Throat Bisacodyl (Bisacodyl 10 Mg Supp) 10 mg RECTAL DAILY PRN PRN Reason: Constipation Dextrose/Water (Dextrose 50% Syringe 50 Ml) 25 ml IVP PER PROTOCOL PRN; Protocol PRN Reason: Hypoglycemia Dextrose/Water (Dextrose 50% Syringe 50 Ml) 50 ml IVP PER PROTOCOL PRN; Protocol PRN Reason: Hypoglycemia Ferrous Sulfate (Ferrous Sulfate 325 Mg Tab) 325 mg PO W/LUNCH [facility] Last Admin: 05/04/24 11:37 Dose: Not Given Amiodarone HCl 150 mg/ (Dextrose/Water) 103 mls @ 618 mls/hr IV .Q10M PRN; Protocol PRN Reason: A.FIB/FLUTTER Last Admin: 05/03/24 13:08 Dose: 618 mls/hr Amiodarone HCl 450 mg/ (Dextrose/Water) 250 mls @ 16.667 mls/hr IV .Q15H PRN; Protocol PRN Reason: A.FIB/FLUTTER Last Admin: 05/03/24 20:23 Dose: 0.5 mg/min, 16.667 mls/hr Insulin Aspart (Insulin Aspart (Novolog) 100 Unit/Ml Vial) 0 unit SQ ACHS [facility]; Protocol Last Admin: 05/04/24 11:36 Dose: Not Given Ketorolac Tromethamine (Ketorolac 15 Mg/Ml 1 Ml Vial) 15 mg IVP Q6HR [facility] Stop: 05/07/24 06:45 Last Admin: 05/04/24 11:44 Dose: 15 mg Magnesium Hydroxide (Magnesium Hydroxide 2,400 Mg/30 Ml Cup) 2,400 mg PO BID PRN PRN Reason: Constipation Methocarbamol (Methocarbamol 500 Mg Tab) 500 mg PO QID PRN PRN Reason: Muscle Spasm Last Admin: 05/03/24 03:33 Dose: 500 mg Metoprolol Tartrate (Metoprolol Tartrate 25 Mg Tab) 25 mg PO Q8HR [facility] Last Admin: 05/04/24 08:54 Dose: 25 mg Miscellaneous Information (Magnesium Replacement Protocol 1 Each Misc) 1 each MISCELLANE DAILY PRN; Protocol PRN Reason: Per Protocol Miscellaneous Information (Potassium Replacement Protocol 1 Each Misc) 1 each M ISCELLANE DAILY PRN; Protocol PRN Reason: Per Protocol Multivitamins (Multivitamins, Thera 1 Each Tab) 1 each PO DAILY [facility] Last Admin: 05/04/24 08:53 Dose: 1 each Ondansetron HCl (Ondansetron 4 Mg/2 Ml Vial) 4 mg IVP Q6HR PRN PRN Reason: Nausea And Vomiting Pantoprazole Sodium (Pantoprazole 40 Mg Tablet) 40 mg PO AC-BRKFST [facility] Last Admin: 05/04/24 06:42 Dose: 40 mg Senna/Docusate Sodium (Sennosides-Docusate Sodium 1 Each Tab) 2 each PO HS [facility] Last Admin: 05/03/24 20:38 Dose: 2 each Sodium Chloride (Sodium Chloride 0.9% Flush 10 Ml Syringe) 10 ml IV BID [facility] Last Admin: 05/04/24 09:19 Dose: 10 ml Past medical history to include: Prior history of DVT and pulm embolism, GERD, hyperlipidemia, BPH, psoriasis, COVID and February 2021, osteoarthritis, Ribeiro's esophagus. Denies any history of CAD. 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 . Non-smoker. Maybe 1 drink on weekends. Occasionally Physical examination: VITAL SIGNS: 98.7, 61, 16, 100/55, 96% room air GENERAL: Up in recliner, comfortable EYES: Pupils equal. Conjunctiva monae l. HEENT: External appearance of nose and ears normal, oral cavity-endotracheal tube NECK: JVD not raised; masses not palpable. HEART: First and second heart sounds are normal; no edema. LUNGS: Respiratory rate normal l; fair entry ABDOMEN: Soft, nontender, liver spleen not palpable, no masses palpable. PSYCH: AOx3, mood affect normal MUSCULOSKELETAL:No Clubbing/cyanosis;muscles-grossly intact INVESTIGATIONS, reviewed in the clinical context: May 04: White count 9.4 hemoglobin 11.6 platelets 170 sodium 133 potassium 4 creatinine 0.83 May 03: White count 10.9 hemoglobin 12.6 platelets 135 potassium 4.8 creatinine 0.77 May 02: White count 30.3 hemoglobin 12.1 platelets 190 potassium 4.3 creatinine 0.65 albumin 3.0 May 01: White count 18.3 hemoglobin 12.1 platelets 206 LDL 136 April 29: White count 7.9 hemoglobin 13.1 platelets 236 potassium 4.2 creatinine 0.69 Troponin I 0.118, 0.863 EKG reported by the EMS: ST elevation. Carotid Doppler: No significant stenosis 2D echocardiogram: [place] hypokinetic. Moderately reduced global LV function EF 35 to 40%. Assessment plan: -Coronary artery bypass x 4 occlusion of left atrial appendage with AtriCure clip. [May 01, 2024-Dr. Lawson] -Acute respiratory failure with ventilator support: Status post -Acute non-ST elevation myocardial infarction. -Postinfarct angina-resolved -Acute postprocedure blood loss anemia expected from surgery ferrous sulfate -Paroxysmal t atrial fibrillation-resolved Received amiodarone IV being discharged on p.o. -Triple-vessel coronary artery disease per cardiac catheterization: Status post CABG Aspirin. Controlled. Plavix. Lopressor. -Essential hypertension Lopressor 12.5 mg twice daily -Hyperlipidemia Lipitor 80 mg nightly -Mild leukocytosis, reactive. No clinical evidence of infection . Doing well. Stable. Follow-up with PCP upon discharge. Thank you Past Medical History Past Medical History: Coronary Artery Disease (CAD), Chest Pain / Angina, Deep Vein Thrombosis (DVT), GERD/Reflux, Hyperlipidemia, Myocardial Infarction ([place]), Prostate Disorder, Pulmonary Embolus (PE), Skin Disorder Additional Past Medical History / Comment(s): psoriasis ( wrist and elbows both arms), had COVID 03/2021. 08/2019 blood clot in legs and lung . arthritis in hands, History of PE; Ribeiro's esophagitis History of Any Multi-Drug Resistant Organisms: None Reported Past Surgical History: Orthopedic Surgery Additional Past Surgical History / Comment(s): bl knee replacement, rt shoulder surgery after fx, EGD 07/26/21 most prostate removed no cancer Past Anesthesia/Blood Transfusion Reactions: Previous Problems w/ Anesthesia, Postoperative Nausea & Vomiting (PONV) Additional Past Anesthesia/Blood Transfusion Reaction / Comment(s): diff swallowing after EGD,ribeiro esophagus. no blood transfusions Past Psychological History: No Psychological Hx Reported Smoking Status: Never smoker Past Alcohol Use History: Rare Additional Past Alcohol Use History / Comment(s): 1 drink occasionally on the weekends Past Drug Use History: None Reported
[2024-05-04] MEDS: amLODIPine 2.5 MG TAB PO SCH (14:45)
--- NOTE | 2024-05-04 15:21 | P.PN ---
Subjective Progress Note Date: 05/04/24 History of Present Illness: The patient is a 68-year-old male with a prior history of DVT and pulmonary em bolism in 2019, maintained on Eliquis, history of hyperlipidemia who presented with symptoms of chest discomfort. He had an episode of chest discomfort to the right side of the chest that is new to him with no other symptoms of dyspnea or dizziness. Initial EKG by EMS was normal subsequent EKG showed ST segment elevation in the lateral precordial leads and upon arrival to the emergency room his ST segment normalized and he was pain-free. He has no prior similar symptoms and he is quite active physically without any associated chest discomfort, dizziness or palpitations. He has no prior history of myocardial infarction, heart failure or arrhythmia. He has no history of diabetes or hypertension, he is a non-smoker. Medications: Eliquis and Protonix 04/29 Patient seen and examined. Patient had approximately 30 minutes of chest pain however improved with aspirin, nitro and by the time he was taken to [facility] was not having any further pain. Catheterization showed multivessel CAD with recommendations for bypass. Preoperative workup has begun. He denies any further chest pain. Mildly bradycardic on metoprolol. Remains on heparin drip. Blood work from this morning pending. 04/30 Patient seen and examined. Patient had echocardiogram performed which showed left ventricular ejection fraction 35% with apical hypokinesis. He is being evaluated for likely bypass surgery tomorrow. He did start to have chest discomfort approximately 8:00 and his nitroglycerin patch was changed. We will give additional nitro and he remains on a heparin drip. EKG pending. May 02, 2024 Postop day 1 off-pump CABG x 4. Patient seen and examined at bedside this a.m. Sitting in the recliner. Currently sinus rhythm, hemodynamically stable. Not requiring any inotropes. Last night required Cleviprex. Currently on Cardizem. Mediastinal and left chest tube in place. May 04, 2024 Patient is seen and examined at bedside this a.m. He is doing well from cardiovascular standpoint denies any chest pain chest pressure shortness of breath On exam Alert oriented, not in acute distress Lungs are clear to auscultate, diminished breath sounds due to poor inspiratory effort, on 3 L oxygen S1-S2 audible, regular pulses, no significant murmurs appreciated, sternum stable, Abdominal soft and nondistended No significant swelling in bilateral lower extremity Impression CAD status post CABG x 4, Atrial clip ligation Ischemic cardiomyopathy EF 35 to 40% Dyslipidemia Tipton's esophagus Left lower extremity DVT and PE in 2020 Plan Continue aspirin, Plavix, statin, beta-alexandr Patient is cleared to be discharged from cardiothoracic surgery standpoint. I agree with patient discharge. I recommend him outpatient follow-up with primary time clock repairer along with getting set up in cardiopulmonary rehab. Cardiology team will sign off Objective - Vital Signs Vital signs: Vital Signs Temp 98.7 F 05/04/24 11:42 Pulse 66 05/04/24 12:08 Resp 16 05/04/24 11:42 BP 100/55 05/04/24 11:42 Pulse Ox 96 05/04/24 09:05 FiO2 45 05/01/24 20:00 Intake & Output 05/03/24 05/04/24 05/04/24 18:59 06:59 18:59 Intake Total 1260 250.004 207.2 Output Total 2040 530 300 Balance -780 -279.996 -92.8 Weight 95.9 kg Intake: IV 162 200.004 Amiodarone 450 mg In 200.004 Dextrose 5% in Water 250 ml @ 0.5 MG/MIN 16.667 mls/hr IV .Q15H PRN Rx#: [id number] Sodium Chloride 0.9% 1, 150 000 ml @ 30 mls/hr IV . Q24H LUIGI Rx#:[id number] pressure bags 12 Intake, IV Titration 207.2 Amount Amiodarone 360 mg In 207.2 Dextrose 5% in Water 200 ml @ 1 MG/MIN 34.533 mls/ hr IV .Q6H PRN Rx#: [id number] Oral 1098 50 Output: Chest Tube Drainage 60 MS 40 left pleural 20 Urine 1980 280 300 Post Void Residual 250 Other: Voiding Method Indwelling Catheter Toilet Toilet Urinal Urinal # Voids 1 # Bowel Movements 1 ABP, PAP, CO, CI - Last Documented Arterial Blood Pressure 128/50 Pulmonary Artery Pressure 26/8 Cardiac Output 5.1 Cardiac Index 2.4 - Labs CBC & Chem 7: 05/04/24 08:46 05/04/24 08:46 Labs: Abnormal Lab Results - Last 24 Hours (Table) 05/01/24 05/03/2424 Range/Units 11:25 17:13 20:20 RBC (4.30-5.90) m/uL Hgb (13.0-17.5) gm/dL Hct (39.0-53.0) % Neutrophils # (1.3-7.7) k/uL Lymphocytes # (1.0-4.8) k/uL ABG pH 7.46 H (7.35-7.45) ABG pCO2 34 L (35-45) mmHg ABG pO2 236 H (83-108) mmHg ABG O2 Saturation 99.2 H (94-97) % ABG Hematocrit 32 L (34.0-46.0) % ABG Glucose 100 H (75-99) mg/dL Hemoglobin 10.4 L (13.0-17.5) gm/dL Sodium (137-145) mmol/L Glucose (74-99) mg/dL POC Glucose (mg/dL) 146 H 134 H (70-110) mg/dL Total Protein (6.3-8.2) g/dL Albumin (3.5-5.0) g/dL Arterial Blood Glucose 100 H (75-99) mg/dL 05/04/24 05/04/24 05/04/24 Range/Units 08:46 08:46 11:26 RBC 4.07 L (4.30-5.90) m/uL Hgb 11.6 L (13.0-17.5) gm/dL Hct 36.1 L (39.0-53.0) % Neutrophils # 8.0 H (1.3-7.7) k/uL Lymphocytes # 0.7 L (1.0-4.8) k/uL ABG pH (7.35-7.45) ABG pCO2 (35-45) mmHg ABG pO2 (83-108) mmHg ABG O2 Saturation (94-97) % ABG Hematocrit (34.0-46.0) % ABG Glucose (75-99) mg/dL Hemoglobin (13.0-17.5) gm/dL Sodium 133 L (137-145) mmol/L Glucose 120 H (74-99) mg/dL POC Glucose (mg/dL) 139 H (70-110) mg/dL Total Protein 5.3 L (6.3-8.2) g/dL Albumin 3.0 L (3.5-5.0) g/dL Arterial Blood Glucose (75-99) mg/dL
== END 2024-05-04 15:25 | disposition home or self-care (01) | DRG 234 ==
LOC: EC 18:50 → SUPCPDRO 18:50 → 2SICU 19:00
PROVIDERS: ADMIT Thoracic Surgery (Cardiothoracic Vascular Surgery); ATTEND Thoracic Surgery (Cardiothoracic Vascular Surgery)
PROC: 4A023N7 Measurement of Cardiac Sampling and Pressure, Left Heart, Percutaneous Approach (ICD-10-PCS; 2024-04-28)
PROC: B2111ZZ Fluoroscopy of Multiple Coronary Arteries using Low Osmolar Contrast (ICD-10-PCS; 2024-04-28)
PROC: 02110Z9 Bypass Coronary Artery, Two Arteries from Left Internal Mammary, Open Approach (ICD-10-PCS; 2024-05-01)
PROC: 06BQ4ZZ Excision of Left Saphenous Vein, Percutaneous Endoscopic Approach (ICD-10-PCS; 2024-05-01)
PROC: 02L70CK Occlusion of Left Atrial Appendage with Extraluminal Device, Open Approach (ICD-10-PCS; 2024-05-01)
PROC: B24BZZ4 Ultrasonography of Heart with Aorta, Transesophageal (ICD-10-PCS; 2024-05-01)
PROC: 0210093 Bypass Coronary Artery, One Artery from Coronary Artery with Autologous Venous Tissue, Open Approach (ICD-10-PCS; principal; 2024-05-01 08:00)
PROC: 02100A3 Bypass Coronary Artery, One Artery from Coronary Artery with Autologous Arterial Tissue, Open Approach (ICD-10-PCS; 2024-05-01 08:00)
PROC: 03BC4ZZ Excision of Left Radial Artery, Percutaneous Endoscopic Approach (ICD-10-PCS; 2024-05-01 08:00)
DX: I21.3 ST elevation (STEMI) myocardial infarction of unspecified site (principal); I47.20 Ventricular tachycardia, unspecified; D68.2 Hereditary deficiency of other clotting factors; J98.11 Atelectasis; I48.0 Paroxysmal atrial fibrillation; I25.10 Atherosclerotic heart disease of native coronary artery without angina pectoris; I83.93 Asymptomatic varicose veins of bilateral lower extremities; E78.5 Hyperlipidemia, unspecified; I25.5 Ischemic cardiomyopathy; M19.011 Primary osteoarthritis, right shoulder; M19.012 Primary osteoarthritis, left shoulder; L40.9 Psoriasis, unspecified; M19.041 Primary osteoarthritis, right hand; M19.042 Primary osteoarthritis, left hand; R00.1 Bradycardia, unspecified; N40.0 Benign prostatic hyperplasia without lower urinary tract symptoms; K22.70 Barrett's esophagus without dysplasia; Z96.653 Presence of artificial knee joint, bilateral; Z86.711 Personal history of pulmonary embolism; Z82.49 Family history of ischemic heart disease and other diseases of the circulatory system; Z87.891 Personal history of nicotine dependence; Z86.718 Personal history of other venous thrombosis and embolism; Z86.16 Personal history of COVID-19; Z79.01 Long term (current) use of anticoagulants; I25.2 Old myocardial infarction; Z79.899 Other long term (current) drug therapy
CPT/HCPCS: 36415; 71045; 71046; 71250; 80048; 80053; 80061; 80074; 82272; 82330; 82805; 83036; 83735; 84132; 84443; 84484; 85025; 85610; 85730; 86850; 86900; 86901; 86920; 87070; 93005; 93306; 93458; 93880; 93922; 93970; 94002; 94150; 94640; 94660; 96374; 99291

== ENCOUNTER → 2024-05-11 | Outpatient (CLI) | payer MEDICARE, BC ==
--- NOTE | 2024-05-11 12:13 | US ---
EXAMINATION TYPE: US venous doppler duplex UE LT DATE OF EXAM: 05/11/2024 COMPARISON: Ultrasound 04/28/2024 CLINICAL INDICATION: Male, 68 years old with history of R22.32 LOCALIZED [place]; hx of DV T in right leg. Patient is on eliquis. Patient had recent cardiac surgery /radial artery surgery. TECHNIQUE: Grayscale, color Doppler and spectral Doppler imaging of the upper extremity. SIDE PERFORMED: Left arm FINDINGS: Left Arm: SVT seen in superficial vein within the forearm. Difficult to determine which vein this is. Vessel appears noncompressible. Lack of color flow seen. This is in the area of the patient's pain i n the mid forearm. No evidence of DVT. IMPRESSION: 1. No deep venous thrombosis of the right upper extremity. 2. Superficial venous thrombosis within the right forearm. [facility], , 05/11/2024 12:11 PM
== END | disposition home or self-care (01) ==
LOC: RADUSWWP 11:03
PROVIDERS: ATTEND Thoracic Surgery (Cardiothoracic Vascular Surgery)

== ENCOUNTER 2024-09-22 09:33 | Emergency (ER) | payer MEDICARE, BC ==
[2024-09-22 09:36] VITALS: BP 138/77; PULSE 68; RESP 18; TEMP 98
--- NOTE | 2024-09-22 10:17 | ED ---
Chest Pain HPI - General Chief Complaint: Chest Pain Stated Complaint: chest pain Time Seen by Provider: 09/22/24 09:50 Source: patient Mode of arrival: ambulatory Limitations: no limitations - History of Present Illness Initial Comments: 68-year-old male presents from outpatient cardiac rehab patient developed some discomfort when moving his arm. Patient has no complaints and outpatient center for evaluation. Patient stating he does not want to be seen. - Related Data Home Medications Medication Instructions Recorded Confirmed Multivitamins, Thera [Multivitamin 1 tab PO DAILY 07/22/21 04/28/24 (formulary)] Apixaban [Eliquis] 2.5 mg PO BID 04/28/24 04/28/24 Previous Rx's Medication Instructions Recorded Acetaminophen Tab [Tylenol] 650 mg PO Q4HR PRN tab 05/04/24 Amiodarone [Cordarone] 400 mg PO BID #48 tab 05/04/24 Aspirin 81 mg PO DAILY #30 tab 05/04/24 Atorvastatin [Lipitor] 40 mg PO DAILY #30 tab 05/04/24 Metoprolol Tartrate [Lopressor] 25 mg PO Q8HR #90 tab 05/04/24 Pantoprazole [Protonix] 40 mg PO DAILY #0 05/04/24 Sennosides-Docusate Sodium 2 each PO HS PRN tab 05/04/24 [Senokot-S] amLODIPine [Norvasc] 2.5 mg PO DAILY@1400 #30 tab 05/04/24 Allergies Allergy/AdvReac Type Severity Reaction Status Date / Time glycopyrrolate Allergy diff Verified 09/22/24 09:36 swallowing, dry mouth oxycodone [From Percocet] Allergy diff Verified 09/22/24 09:36 swallowing, dry mouth Review of Systems ROS Statement: Those systems with pertinent positive or pertinent negative responses have been documented in the HPI. ROS Other: All systems not noted in ROS Statement are negative. Past Medical History Past Medical History: Coronary Artery Disease (CAD), Chest Pain / Angina, Deep Vein Thrombosis (DVT), GERD/Reflux, Hyperlipidemia, Myocardial Infarction ([place]), Prostate Disorder, Pulmonary Embolus (PE), Skin Disorder Additional Past Medical History / Comment(s): psoriasis ( wrist and elbows both arms), had COVID 03/2021. 08/2019 blood clot in legs and lung . arthritis in hands, History of PE; Ribeiro's esophagitis History of Any Multi-Drug Resistant Organisms: None Reported Past Surgical History: Orthopedic Surgery Additional Past Surgical History / Comment(s): bl knee replacement, rt shoulder surgery after fx, EGD 07/26/21 most prostate removed no cancer Past Anesthesia/Blood Transfusion Reactions: Previous Problems w/ Anesthesia, Postoperative Nausea & Vomiting (PONV) Additional Past Anesthesia/Blood Transfusion Reaction / Comment(s): diff swallowing after EGD,ribeiro esophagus. no blood transfusions Past Psychological History: No Psychological Hx Reported Smoking Status: Never smoker Past Alcohol Use History: Rare Past Drug Use History: None Reported - Past Family History Father Family Medical History: Cancer, Coronary Artery Disease (CAD) Additional Family Medical History / Comment(s): esophageal Mother Family Medical History: Cancer Additional Family Medical History / Comment(s): breast General Exam - General Exam Comments Initial Comments: Visual Physical Exam Vital signs reviewed General: Well-appearing, nontoxic, no acute distress. Head: Normocephalic, atraumatic Eyes: PERRLA, EOMI ENT: Airway patent Chest: Nonlabored breathing Skin: No visual rash, normal skin tone Neuro: Alert and oriented 3 Musculoskeletal: No gross abnormalities Limitations: no limitations Course Vital Signs 09/22/24 09/22/24 09:34 09:39 Temperature 98 F Pulse Rate 68 Pulse Rate [ 68 [employer] ] Respiratory 18 Rate Blood Pressure 138/77 O2 Sat by Pulse 98 Oximetry Chest Pain MDM - MDM Patient did not want to be seen in the emergency department. Patient was sent over from cardiac rehab Disposition Clinical Impression: Atypical chest pain Disposition: LEFT AGAINST MEDICAL ADVICE Referrals: Rosa Harrell MD [Primary Care Provider] - 1-2 days
== END 2024-09-22 10:08 | disposition left against medical advice (07) ==
LOC: EC 09:33
DX: R07.89 Other chest pain (principal); Z53.29 Procedure and treatment not carried out because of patient's decision for other reasons
CPT/HCPCS: 93005; 99284